=== PATIENT | female | born 1950 | race Caucasian/White ===

== ENCOUNTER → 2016-11-11 | Outpatient (CLI) | payer OTHER, MEDICARE ==
[~2016-11-11] MED LIST: ATOR10TA82 PO; CALCTAB5 PO; CHOL100010 PO; CLON1TAB3 PO; MULT-506 PO
--- NOTE | 2016-11-11 15:36 | DIAGNOSTIC IMAGING REPORT ---
ADDENDUM At the request of the referring physician, comparison is again made with the prior study of 05/11/2016. All micronodularity previously described including the lingula, right lower lobe, and to lesser extent scattered throughout lung bases are stable. All are unchanged in terms of size configuration and/or appearance. There are no new or interval findings. Electronically signed by: Ralph Bazzi M.D. 11/15/2016 10:01 AM Dictated Date/Time: 11/15/2016 10:00 AM ORIGINAL REPORT CHEST CT WITHOUT CONTRAST CT DOSE: 302.88 mGy.cm HISTORY: Dyspnea R05 Cough in 6 [id number] TECHNIQUE: Multiaxial CT images of the chest were performed without contrast. COMPARISON: None. FINDINGS: Lungs are considered generally clear. There are 2 sub-3 mm nodular densities in the right lower lobe. A dominant nodule is not appreciated. There is minimal scattered interstitial prominence medial aspect right lower lobe as well as superior segment right lower lobe. A well-defined focal infiltrate, however is not identified. There is no significant mediastinal or hilar adenopathy. Limited evaluation the upper abdomen is unremarkable. IMPRESSION: 1. Minimal low suspicion nodularity right base. 2. Lungs otherwise remarkable for minimal scattered interstitial change. 3. Study is otherwise negative. Electronically signed by: Ralph Bazzi M.D. 11/11/2016 3:34 PM Dictated Date/Time: 11/11/2016 3:29 PM
== END | disposition home or self-care (01) ==
LOC: C.CTS 14:39
PROVIDERS: ATTEND Internal Medicine Pulmonary Disease
DX: R05 Cough (principal)

== ENCOUNTER → 2017-02-10 | Outpatient (CLI) | payer OTHER, MEDICARE ==
[~2017-02-10] MED LIST changes: -ATOR10TA82 PO; +ATOR10TA88 PO
== END | disposition home or self-care (01) ==
LOC: C.PAPS 16:15
PROVIDERS: ATTEND Obstetrics & Gynecology
DX: Z01.419 Encounter for gynecological examination (general) (routine) without abnormal findings (principal)

== ENCOUNTER → 2017-05-24 | Outpatient (CLI) | payer OTHER, MEDICARE ==
[~2017-05-24] MED LIST changes: +ATOR10TA82 PO; -ATOR10TA88 PO
--- NOTE | 2017-05-24 14:49 | DIAGNOSTIC IMAGING REPORT ---
(CHEST) THORAX WITHOUT CLINICAL HISTORY: 67 years-old Female presenting with R91.8 Multiple lung nodules on CTto be done in 6 [id number]. TECHNIQUE: Multidetector CT imaging of the chest was performed without the use of intravenous contrast. IV contrast: None. A dose lowering technique was used consistent with the principles of ALARA (as low as reasonably achievable). COMPARISON: 11/11/2016. CT DOSE (mGy.cm): The estimated cumulative dose is 298.65 mGycm. 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 On soft tissue windows, normal thyroid and thoracic inlet. No axillary, supraclavicular, or mediastinal lymphadenopathy. Evaluation of the siomara limited without intravenous contrast. Normal aorta. Minimal aortic valve calcification. Normal heart size. No pericardial or pleural effusion. Fat-containing left Bochdalek hernia. On lung windows, punctate nodules in the right lower and left upper lobes stable from prior (series 4 images 46, 162, and 170). Solid 5 mm peripheral nodule in the lingula also stable from prior (series 4 image 163). No new pulmonary nodule. Airways patent. On bone windows, normal osseous structures. IMPRESSION: 1. Stable multiple pulmonary nodules, the largest measuring 5 mm. No new nodule. Follow-up per Emily Society 2017 recommendations below. Please refer to below summary of Fleischner Society 2017 recommendations for follow-up of incidental CT nodules (H Kecia et al. Guidelines for management of incidental pulmonary nodules detected on CT images: From the Fleischner Society 2017. Radiology 2017; 284: 228-243.) SOLID NODULES Single nodule; size < 6 mm * Low risk patients: No routine follow-up * High risk patients: Optional CT at 12 months Single nodule; size 6-8 mm * Low risk patients: CT at 6-12 months, then consider CT at 18-24 months * High risk patients: CT at 6-12 months, then at 18-24 months Single nodule; size > 8 mm * Either low or high risk patients: Considered CT at 3 months, PET/CT, or tissue sampling Multiple nodules; size < 6 mm * Low risk patients: No routine follow up * High risk patients: Optional CT at 12 months Multiple nodules; size 6-8 mm * Low risk patients: CT at 3-6 months, then consider CT at 18-24 months * High risk patients: CT at 3-6 months, then at 18-24 months Multiple nodules; size > 8 mm * Low risk patients: CT at 3-6 months, then consider at 18-24 months * High risk patients: CT at 3-6 months, then at 18-24 months Note: These guidelines apply to incidental nodules. These guidelines do not apply to patients younger than 35 years, immunocompromised patients, or patients with cancer. * Low risk patients: Minimal or absent history of smoking and/or other known risk factors * High risk patients: History of smoking, exposure to other carcinogens, emphysema, fibrosis, upper lobe location, family history of lung cancer, etc. * If a nodule up to 8 mm is partly solid or is ground glass, further follow-up is required after 24 months to exclude possible slow growing adenocarcinoma. SUBSOLID NODULES Single ground-glass nodule * Nodule size < 6 mm: No routine follow-up * Nodule size > or = 6 mm: CT at 6-12 months to confirm persistence, then CT every 2 years until 5 years Single part-solid nodule * Nodule size < 6 mm: No routine follow-up * Nodules size > or = 6 mm: CT at 3-6 months to confirm persistence. If unchanged and solid component remains < 6 mm, annual CT should be performed for 5 years Multiple nodules * Nodule size < 6 mm: CT at 3-6 months. If stable, consider CT at 2 and 4 years. * Nodules size > or = 6 mm: CT at 3-6 months. Subsequent management based on the most suspicious nodule(s) Electronically signed by: Luca Lyman M.D. 05/24/2017 2:48 PM Dictated Date/Time: 05/24/2017 2:38 PM
== END | disposition home or self-care (01) ==
LOC: C.CTS 14:17
PROVIDERS: ATTEND Internal Medicine Pulmonary Disease
DX: R91.8 Other nonspecific abnormal finding of lung field (principal)

== ENCOUNTER 2023-10-20 15:23 | Inpatient (IN) ==
--- NOTE | 2023-10-20 16:29 | XRay Report ---
XR KUB/Abdomen 1 view CLINICAL HISTORY: constipation TECHNIQUE: 1 view of the abdomen was obtained. Comparison: None available at the time of this dictation. FINDINGS: Lung bases are unremarkable. Posterior lumbar fixation hardware is seen. The bowel gas pattern is non obstructive. A moderate amount of stool is noted within the large bowel. IMPRESSION: Moderate stool burden without evidence of fecal impaction. ACT 112: Negative or not required by law. Electronically signed by: Gustavo Noguera M.D. 10/20/2023 4:27 PM
[2023-10-20] MEDS: SENNA 8.6 MG TAB PO SCH (17:17)
[2023-10-20 17:18] LABS: Basophils # (auto) 0.02 K/uL (0.00-0.20); Basophils % (auto) 0.2 %; Eosinophils # (auto) 0.04 K/uL (0.00-0.50); Eosinophils % (auto) 0.3 %; Hemoglobin 12.5 g/dl (12.0-16.0); Immature Granulocytes # (auto) 0.05 K/uL (0.01-0.20); Immature Granulocytes % (auto) 0.4 %; Lymphocytes # (auto) 0.78 K/uL (1.20-3.40); Lymphocytes % (auto) 6.1 %; Mean Corpuscular Hemoglobin 29.8 pg (25.0-34.0); Mean Corpuscular Hgb Conc 33.8 g/dL (32.0-36.0); Mean Corpuscular Volume 88.1 fL (80.0-100.0); Mean Platelet Volume 10.5 fL (9.4-12.4); Monocytes # (auto) 1.22 K/uL (0.11-0.59); Monocytes % (auto) 9.5 %; Neutrophils # (auto) 10.67 K/uL (1.40-6.50); Neutrophils % (auto) 83.5 %; Platelet Count 210 K/uL (130-400); RDW Standard Deviation 42.2 fL (36.4-46.3); White Blood Count 12.78 K/ul (4.8-10.8)
--- NOTE | 2023-10-20 17:20 | Emergency Department Note ---
Impression & Plan Acute constipation, Hypoxia ED Provider Note HISTORY OF PRESENT ILLNESS: Patient is a 73-year-old female presenting with rectal pain. Patient reports she had hemorrhoid surgery 4 days ago. Reports she has not had a bowel movement or any passing of flatus in the last 4 days. Reports she has significant pressure in her rectum and some lower abdominal pain. Reports she has been taking Metamucil, MiraLAX, prune juice and milk of magnesia with no output from her rectum. Reports "I feel something there but it would not come out." She also reports she tried an enema this morning with no output. She denies any nausea or vomiting. Reports feeling very weak and tired and fatigued. Patient reports she has been taking percocet, but only started taking them yesterday for her pain. ROS: as above PHYSICAL EXAM: Constitutional: Patient appears in no acute distress. HENT: Head: Normocephalic and atraumatic. Eyes: EOMI, PERRL Mouth/Throat: Mucous membranes moist. Neck: Trachea midline. Neck supple. Cardiovascular: RRR, No murmurs, rubs or gallops. Intact distal pulses. Pulmonary/Chest: No respiratory distress. Breath sounds clear and equal bilaterally. No wheezes or rales. Abdominal: Abdomen soft, no tenderness, rebound or guarding. Musculoskeletal: No edema, tenderness or deformity noted. Skin: Warm and dry. No rash, erythema, pallor or cyanosis Psychiatric: Appropriate mood and affect for situation. Neurological: Alert and keenly responsive. CN II-XII grossly intact, moving all extremities equally and fully. MDM: - Vitals signs showed hypotension - History obtained via patient. History as above. - Chronic conditions affecting care: none - Differential diagnoses include, but are not limited to: small bowel obstruction; fecal impaction; dehydration; constipation - Order placed for continuous cardiac monitoring. At this time, monitor showed rate of 85 bpm with normal sinus rhythm, per my interpretation. - External medical records reviewed. - Laboratory workup interpreted by myself showed elevated WBC (12.78) with left shift; hyponatremia (Na 132); normal lactate; normal lipase - CT abdomen/pelvis wo contrast showed large stool burden but no obvious bowel obstruction. Noted to have wall thickening in the rectum which could be postsurgical per radiology. - Patient was given mag citrate in ER, but started to vomit. Given 4 mg IV zofran - Discussed case with patient's surgeon, Dr. Greenwood, who recommended good bowel regimen and pain management. - Initially patient was agreeable to going home with a new bowel regimen. However, on repeat evaluation her saturations were in the mid 80s on room air. She was placed on 2 L nasal cannula. - Discussion was had with case advocate about patient's case and need for admission - Hospitalist consulted for admission - Patient admitted to [facility] service for further evaluation and management. ASSESSMENT AND PLAN: Diagnosis: Acute constipation; hypoxia Plan: Admit Past Med/Surg History Medical History Weight disorder Surgical History (Updated 10/03/19 @ 09:52 by JUSTINE Spaulding) History of tooth extraction History of tonsillectomy History of hand surgery History of section History of back surgery Social History Smoking Status: Former smoker Cigarettes Per Day: 30; Hx Alcohol Use: No Hx Substance Use: No Preferred Language: Turkish marital status: current occupational status: retired Feels Safe at Home: Yes Sunscreen Use: No Allergies Allergies Allergy/AdvReac Type Severity Reaction Status Date / Time Shellfish-derived Products AdvReac Unknown Uncoded 10/12/22 13:35 Home Meds Home Medications Medication Instructions Recorded Confirmed cholecalciferol (vitamin D3) 50 2,000 units PO BID 02/14/19 10/12/22 mcg (2,000 unit) capsule levothyroxine 25 mcg tablet 25 mcg PO DAILY #30 tabs 02/14/19 10/12/22 clonazepam 1 mg tablet 1 mg PO DAILY 07/01/19 10/12/22 gabapentin 100 mg capsule 100 mg PO DAILY 07/01/19 10/12/22 metformin See Rx Instructions PO BID 07/01/19 10/12/22 atorvastatin 10 mg tablet 20 mg PO HS 09/21/21 10/12/22 difluprednate 0.05 % eye drops 1 drp ophthalmic (eye) QID 09/21/21 10/12/22 (Durezol) duloxetine 30 mg capsule,delayed 60 mg PO DAILY 03/15/22 04/05/23 release ergocalciferol (vitamin D2) 50 mcg 50 mcg PO .COMPLEX 09/21/21 10/12/22 (2,000 unit) capsule hydrocortisone 1 % topical cream 1 applic topical DAILY PRN 09/21/21 10/12/22 (Anti-Itch (hydrocortisone)) prednisone 10 mg tablet 10 mg PO DAILY 09/21/21 10/12/22 semaglutide [Ozempic] subcut .WEEKLY 10/12/22 10/12/22 Previous Rx's Medication Instructions Recorded mupirocin 2 % topical ointment 1 applic topical QID #15 grams 04/24/23 Results & Data (ED) Vital Signs Vital Signs - 24 hr 10/20/23 15:28 10/20/23 16:09 10/20/23 21:12 Temperature 36.4 C L Temperature Source Temporal Artery Scan Pulse Rate 86 Pulse Rate [Left Finger] 84 76 Respiratory Rate 19 17 12 Respiratory Effort / Characteristics Non-Labored Non-Labored Respiratory Depth Normal Normal Respiratory Pattern Regular Blood Pressure 104/71 Blood Pressure [Left Arm] 99/59 L 99/56 L Blood Pressure Mean 82 Blood Pressure Mean [Left Arm] 72 70 Pulse Oximetry 96 93 92 Oxygen Delivery Method Room Air Room Air Room Air Sepsis Recent Fever Within 48 Hours No Sepsis New/Unexplained Change in Mental Status N/A Sepsis Action Taken by Nursing No Action Required Laboratory Data 10/20/23 16:56 10/20/23 16:56 Lab Results 10/20/23 10/20/23 Range/Units 16:46 16:56 WBC 12.78 H (4.8-10.8) K/ul RBC 4.20 (4.20-5.40) M/uL Hgb 12.5 (12.0-16.0) g/dl Hct 37.0 (37.0-47.0) % MCV 88.1 (80.0-100.0) fL MCH 29.8 (25.0-34.0) pg MCHC 33.8 (32.0-36.0) g/dL RDW Std Deviation 42.2 (36.4-46.3) fL RDW Coeff of Garrick 13.0 (11.5-14.5) % Plt Count 210 (130-400) K/uL MPV 10.5 (9.4-12.4) fL Immature Gran % (Auto) 0.4 % Neut % (Auto) 83.5 % Lymph % (Auto) 6.1 % [place] % (Auto) 9.5 % Eos % (Auto) 0.3 % Baso % (Auto) 0.2 % Neut # (Auto) 10.67 H (1.40-6.50) K/uL Lymph # (Auto) 0.78 L (1.20-3.40) K/uL [place] # (Auto) 1.22 H (0.11-0.59) K/uL Eos # (Auto) 0.04 (0.00-0.50) K/uL Baso # (Auto) 0.02 (0.00-0.20) K/uL Immature Gran # (Auto) 0.05 (0.01-0.20) K/uL PT 9.8 (9.0-12.0) Seconds INR 0.9 (0.9-1.1) Sodium 132 L (136-145) mmol/L Potassium 4.6 (3.5-5.1) mmol/L Chloride 100 (98-107) mmol/L Carbon Dioxide 29 (21-32) mmol/L Anion Gap 3 (3-11) BUN 15 (6-23) mg/dl Creatinine 0.86 (0.6-1.2) mg/dl Est Cr Clr Drug Dosing 53.4 ml/min Est GFR ( Amer) 76.6 ml/min Est GFR (Non-Af Amer) 66.1 ml/min BUN/Creatinine Ratio 17.4 (10-20) Glucose 109 H (70-99(Fasting)) mg/dl Lactate 1.6 (0.4-2.0) mmol/L Calcium 8.7 (8.6-10.3) mg/dl Total Bilirubin 0.9 (0.2-1.0) mg/dl AST 27 (13-39) U/L ALT 30 (7-52) U/L Alkaline Phosphatase 78 (34-104) U/L Total Protein 6.2 (6.0-8.3) gm/dl Albumin 3.9 (3.4-5.0) gm/dl Globulin 2.3 L (2.5-4.0) gm/dl Albumin/Globulin Ratio 1.7 (0.9-2) Lipase 31 (11-82) U/L Administered Medications Sennosides (Senna 8.6 Mg Tab) 17.2 mg PO QAM ISABEL Stop: 11/19/23 16:59 Last Admin: 10/20/23 17:17 Dose: 17.2 mg Documented By: [facility]B Discontinued Medications Sodium Chloride (Nss) 1,000 mls @ 999 mls/hr IV .Q1H1M ONE Stop: 10/20/23 18:50 Last Infusion: 10/20/23 20:10 Dose: Infused Documented By: Admin: 10/20/23 18:06 Dose: 999 mls/hr Documented By: [facility] Magnesium Citrate (Magnesium Citrate 296 Ml/Btl) 296 ml PO NOW STA Stop: 10/20/23 18:05 Last Admin: 10/20/23 18:42 Dose: 296 ml Documented By: [facility] Ondansetron HCl (Ondansetron Inj 2 Mg/Ml 2 Ml Vial) 4 mg IV NOW STA Stop: 10/20/23 19:19 Last Admin: 10/20/23 19:36 Dose: 4 mg Documented By: [facility] Imaging Data Radiologist's Impression: KUB X-Ray 10/20/23 16:12 XR KUB/Abdomen 1 view CLINICAL HISTORY: constipation TECHNIQUE: 1 view of the abdomen was obtained. Comparison: None available at the time of this dictation. FINDINGS: Lung bases are unremarkable. Posterior lumbar fixation hardware is seen. The bowel gas pattern is nonobstructive. A moderate amount of stool is noted within the large bowel. IMPRESSION: Moderate stool burden without evidence of fecal impaction. ACT 112: Negative or not required by law. Electronically signed by: Gustavo Noguera M.D. 10/20/2023 4:27 PM Abdomen/Pelvis CT 10/20/23 16:46 CT abd pelvis wo con CLINICAL HISTORY: abdominal pain s/p surgery TECHNIQUE: Helical axial images of the abdomen and pelvis were obtained. Automated dose lowering techniques and/or adjustment according to patient size were utilized for this exam. This exam was performed without intravenous contrast. CT DOSE: 970.44 mGy.cm COMPARISON: None available at the time of this dictation. FINDINGS: Lower chest: A tiny Bochdalek hernia is seen in the left. Mild emphysema is seen. Liver: Unremarkable. No focal lesions are seen. Gallbladder and biliary tree: Large gallbladder is seen. No intra- or extrahepatic biliary ductal dilation. Pancreas: Unremarkable, no focal lesions. Spleen: Unremarkable. Adrenals: Unremarkable. Kidneys and ureters: Unremarkable. Bladder: Unremarkable. Reproductive organs: Unremarkable. Bowel: A large stool burden is seen throughout the colon. Rectal stool is well formed but not inspissated, rectal stool burden is relatively low compared to the remainder of the colon. The appendix is normal. Lymph nodes Retroperitoneal: Unremarkable. Pelvic: Unremarkable. Mesenteric: Unremarkable. Peritoneum: Normal. Vessels: Atherosclerotic calcifications are seen. Abdominal wall: Unremarkable. Bones: Posterior fixation hardware spans L4-S1. IMPRESSION: A large stool burden is seen. Wall thickening is seen in the rectum which is nonspecific but may be postsurgical. Stercoral colitis is considered less likely as the rectal stool burden is not large. ACT 112: Negative or not required by law. Electronically signed by: Gustavo Noguera M.D. 10/20/2023 5:43 PM Discharge Plan Visit Data Chief Complaint: Constipation Stated Complaint: UNABLE TO HAVE A BM AFTER PROCEDURE, REF BY DOC ED Provider: Minoo Rodriguez Discharge Problem: Acute constipation, Hypoxia Patient Disposition: Home - Self-Care Discharge Instructions Krames/Other Patient Handouts: ED Constipation (Adult) Activity Restrictions/Additional Instructions: You were noted to be constipated but no evidence of a bowel obstruction today. Recommend you continue to alternate Tylenol and ibuprofen and take your oxycodone if your pain becomes significant. You should also continue to drink lots of water to stay well hydrated. Bowel regimen: - Take two 8.6 mg senna tablets daily. You can take up to 4 tablets twice daily until you have a bowel movement. - Mix 136g (8 capfuls) of Miralax in 32 ounces of Gatorade. Repeat every 2 hours as tolerated while awake throughout the remainder of the day today (likely 2-4 times total). Goal is for stool output to become completely clear, without any stool fragments or sediment. When this is achieved, the clean out will be complete. Upon completion of clean out, begin taking Miralax daily. - Take milk of magnesium tomorrow with the above regimen. Return to the ER if you are unable to have a bowel movement in the next 72 hours, if you have worsening abdominal pain, vomiting and inability to tolerate oral intake, fever, worsening abdominal pain, or any new or worsening symptoms. Forms Stand Alone Forms: My [facility], Important Visit Information Prescriptions Prescriptions: No Action levothyroxine 25 mcg tablet 25 mcg PO DAILY Qty: 30 cholecalciferol (vitamin D3) 2,000 unit capsule 2,000 units PO BID clonazepam 1 mg tablet 1 mg PO DAILY atorvastatin 10 mg tablet 20 mg PO HS duloxetine 30 mg capsule,delayed release(DR/EC) 60 mg PO DAILY semaglutide [Ozempic] subcut .WEEKLY gabapentin 100 mg capsule 100 mg PO DAILY metformin See Rx Instructions PO BID Rx Instructions: 1 tablet PO twice a day; ergocalciferol (vitamin D2) 50 mcg (2,000 unit) capsule 50 mcg PO .COMPLEX Rx Instructions: 50 mcg PO hydrocortisone [Anti-Itch (HC)] 1 % cream 1 applic topical DAILY PRN prednisone 10 mg tablet 10 mg PO DAILY difluprednate [Durezol] 0.05 % drops 1 drp ophthalmic (eye) QID Rx Instructions: start 24 hours after surgery mupirocin 2 % ointment 1 applic topical QID Qty: 15 0RF Referrals Referrals: Henry Tejada MD [Primary Care Provider] -
[2023-10-20 17:35] LABS: Albumin Globulin Ratio 1.7 (0.9-2); Albumin Level 3.9 gm/dl (3.4-5.0); BUN Creatinine Ratio 17.4 (10-20); Bilirubin,Total 0.9 mg/dl (0.2-1.0); Calcium 8.7 mg/dl (8.6-10.3); Creatinine Clr Calc Pharmacy 53.4 ml/min; Est GFR (African American) 76.6 ml/min; Est GFR (Non-African American) 66.1 ml/min; Globulin 2.3 gm/dl (2.5-4.0); Potassium 4.6 mmol/L (3.5-5.1); Total Protein 6.2 gm/dl (6.0-8.3)
[2023-10-20 17:41] LABS: INR 0.9 (0.9-1.1); Prothrombin Time 9.8 Seconds (9.0-12.0)
--- NOTE | 2023-10-20 17:46 | CT Scan Report ---
CT abd pelvis wo con CLINICAL HISTORY: abdominal pain s/p surgery TECHNIQUE: Helical axial images of the abdomen and pelvis were obtained. Automated dose lowering tech niques and/or adjustment according to patient size were utilized for this exam. This exam was perfor med without intravenous contrast. CT DOSE: 970.44 mGy.cm COMPARISON: None available at the time of this dictation. FINDINGS: Lower chest: A tiny Bochdalek hernia is seen in the left. Mild emphysema is seen. Liver: Unremarkable. No focal lesions are seen. Gallbladder and biliary tree: Large gallbladder is seen. No intra- or extrahepatic biliary ductal dil ation. Pancreas: Unremarkable, no focal lesions. Spleen: Unremarkable. Adrenals: Unremarkable. Kidneys and ureters: Unremarkable. Bladder: Unremarkable. Reproductive organs: Unremarkable. Bowel: A large stool burden is seen throughout the colon. Rectal stool is well formed but not inspiss ated, rectal stool burden is relatively low compared to the remainder of the colon. The appendix is n ormal. Lymph nodes Retroperitoneal: Unremarkable. Pelvic: Unremarkable. Mesenteric: Unremarkable. Peritoneum: Normal. Vessels: Atherosclerotic calcifications are seen. Abdominal wall: Unremarkable. Bones: Posterior fixation hardware spans L4-S1. IMPRESSION: A large stool burden is seen. Wall thickening is seen in the rectum which is nonspecific but may be postsurgical. Stercoral colitis is considered less likely as the rectal stool burden is not large. ACT 112: Negative or not required by law. Electronically signed by: Gustavo Noguera M.D. 10/20/2023 5:43 PM
[2023-10-20] MEDS: SODIUM CHLORIDE 0.9% 1,000 ML IV ONE (18:06)
[2023-10-20] MEDS: MAGNESIUM CITRATE 296 ML/BTL PO STA (18:42)
[2023-10-20] MEDS: ONDANSETRON INJ 2 MG/ML 2 ML VIAL IV STA (19:36)
--- NOTE | 2023-10-20 23:44 | History & Physical Report ---
Date of Service October 20, 2023 Assessment & Plan (1) Hypoxia: Plan: 71-year-old female with past medical history significant for prediabetes, hypothyroidism, mixed hyperlipidemia, aortic valve insufficiency, GERD, vitamin D deficiency, mild fibromyalgia, myofascial pain dysfunction syndrome, osteopenia, scleritis, persistent insomnia, anxiety, positive antinuclear antibody, recently had hemorrhoid surgery and since then she is constipated. Patient states since surgery she did not moved her bowels. And having some nausea. Not able to eat much. Feeling weak and tired and exhausted. At home she had a enema without much help.In the ER stool softeners wee given but patient seems vomited. ER tried to discharge patient with bowel regimen and pain regimen but patient became hypoxic requiring oxygen. Patient states she is feeling short of breath. Denies any chest pain. Denies any headache. No fevers. No cough. Having dry mouth. Micturating okay. Somewhat wobbly while ambulating. Later patient was in the bathroom on the commode and when she was trying to get up from the commode with assistance she suddenly passed out and then again trying to sit on the commode she passed out again and the nursing staff lowered her into the floor and seems she passed out for a minute and came around. Her blood pressure was soft. After that she was alert and oriented and seemed comfortable. Denied any chest pain or shortness of breath or headache after the episode. Hypoxia Requiring oxygen Recently had surgery CTA chest okay Possible atelectasis Spirometry Will monitor Syncope Happened in the bathroom while on commode Possible vasovagal Blood pressure soft after the event IV fluids CT head is okay CTA chest unremarkable Troponin two sets ok EKG no acute findings Orthostatics Telemetry Consult cardiology Constipation Recently had hemorrhoidectomy On pain medications Will give Relistor Hold narcotic pain medications Senokot S 2 tablets nightly and MiraLAX daily Consult surgery in a.m. Hypermagnesemia mag 5.7 in am labs mild hypocalcemia ekg ok took milk of magnesia at home and had mag citrate in Er renal function ok on fluids' ordered a dose of iv Lasix consulted nephro for further recommendations Prediabetes HbA1c in a.m. On Ozempic Aortic valve insufficiency Echo in September 2023 normal EF, trace to mild aortic regurgitation Follows with cardiology History of fibromyalgia Myofascial pain dysfunction syndrome On duloxetine and gabapentin Hypothyroidism On Synthyroid Follow TSH Anxiety On clonazepam DVT prophylaxis Heparin subcu Disposition Med/telemetry Full code History of Present Illness Chief Complaint: Constipation and hypoxia Primary Care Provider: Henry Tejada MD 71-year-old female with past medical history significant for prediabetes, hypothyroidism, mixed hyperlipidemia, aortic valve insufficiency, GERD, vitamin D deficiency, mild fibromyalgia, myofascial pain dysfunction syndrome, osteopenia, scleritis, persistent insomnia, anxiety, positive antinuclear antibody, recently had hemorrhoid surgery and since then she is constipated. Patient states since surgery she did not moved her bowels. And having some nausea. Not able to eat much. Feeling weak and tired and exhausted. At home she had a enema without much help.In the ER stool softeners wee given but patient seems vomited. ER tried to discharge patient with bowel regimen and pain regimen but patient became hypoxic requiring oxygen. Patient states she is feeling short of breath. Denies any chest pain. Denies any headache. No fevers. No cough. Having dry mouth. Micturating okay. Somewhat wobbly while ambulating. Later patient was in the bathroom on the commode and when she was trying to get up from the commode with assistance she suddenly passed out and then again trying to sit on the commode she passed out again and the nursing staff lowered her into the floor and seems she passed out for a minute and came around. Her blood pressure was soft. After that she was alert and oriented and seemed comfortable. Denied any chest pain or shortness of breath or headache after the episode. Past medical history. As mentioned above Past surgical history. . Colonoscopy. Lumbar spinal fusion. Hemorrhoidectomy. Social history. Smoked 1.5 packs a day for 43 years. Quit in 2004. Alcohol social drinking. No drug use. Family history. Brother had prostate cancer. Depression. Maternal aunt had breast cancer. Allergies Allergy/AdvReac Type Severity Reaction Status Date / Time shellfish derived AdvReac Unknown Unknown Verified 10/21/23 00:21 Home Medications Medication Instructions Recorded Confirmed Type atorvastatin 20 mg tablet 20 mg PO QPM 10/20/23 10/21/23 History clonazepam 1 mg tablet 1 mg PO HS PRN Sleep 10/20/23 10/21/23 History cyanocobalamin (vitamin B-12) 1,000 mcg PO DAILY 10/20/23 10/21/23 History 1,000 mcg tablet (Vitamin B-12) duloxetine 60 mg capsule,delayed 60 mg PO DAILY 10/20/23 10/20/23 History release fluticasone propionate 50 2 spray intranasal DAILY PRN 10/20/23 10/21/23 History mcg/actuation nasal .RHINITIS spray,suspension (Flonase Allergy Relief) gabapentin 300 mg capsule 300 mg PO QAM 10/20/23 10/21/23 History gabapentin 300 mg capsule 600 mg PO QPM 10/20/23 10/21/23 History levothyroxine 25 mcg tablet 25 mcg PO QAM 10/20/23 10/21/23 History loratadine 10 mg tablet 10 mg PO QAM 10/20/23 10/21/23 History meloxicam 15 mg tablet 15 mg PO QAM 10/20/23 10/21/23 History oxycodone-acetaminophen 5 mg-325 1 tab PO Q4H PRN .SEVERE PAIN 10/20/23 10/20/23 History mg tablet (Percocet) semaglutide 2 mg/dose (8 mg/3 mL) 2 mg subcut WE 10/20/23 10/20/23 History subcutaneous pen injector (Ozempic) cholecalciferol (vitamin D3) 50 50 mcg PO DAILY 10/21/23 10/21/23 History mcg (2,000 unit) tablet (Vitamin D3) Past Med/Surg History Medical History Weight disorder Surgical History History of tooth extraction History of tonsillectomy History of hand surgery History of section History of back surgery Social History Smoking Status: Former smoker Cigarettes Per Day: 30; Second Hand Exposure: No; Do You Dip or Chew Tobacco: No; Tobacco Cessation Education Requested by Patient: No Hx Alcohol Use: Yes Alcohol type: beer Hx Substance Use: No Preferred Language: American Communication Ability: Effective Rehab Specialist Required: No Beliefs That Will Affect Care: None marital status: Current Living Situation: Spouse current occupational status: retired Other Information That Helps Us Care for You: No Feels Safe at Home: Yes Safety Concerns: Feels Safe At This Time Sunscreen Use: No Assistive Devices: None Review of Systems 2 Review of Systems: All systems reviewed & are unremarkable except as noted in HPI & below Physical Exam Physical Exam: General- Not in acute distress Head- atraumatic Eyes- PERRL. ENT- oropharynx dry Neck- supple, no JVD. Lungs- clear to auscultation no wheezing or crackles Heart- regular rate and rhythm; no murmur, no gallop Abdomen- normal bowel sounds, soft, mild diffuse discomfort, mild distension Extremities- no pretibial edema, no erythema seen Neuro- alert, oriented x 3; PERRL, EOMI; no facial palsy; no dysarthria; motor 5/5 bilaterally; no pronator drift, coordination of movements normal heel franklin test ok, sensations intact, position sense intact. Skin- warm & dry Results & Data Results & Data Vital Signs (Past 12 Hours) Vital Signs Temp Pulse Pulse Resp BP BP Pulse Ox 10/20/23 21:12 76 12 99/56 L 92 10/20/23 16:09 84 17 99/59 L 93 10/20/23 15:28 36.4 C L 86 19 104/71 96 O2 Del Method 10/20/23 21:12 Room Air 10/20/23 16:09 Room Air 10/20/23 15:28 Room Air Diagnostic Findings Laboratory Results WBC 12.78 K/ul (4.8-10.8) H 10/20/23 16:56 RBC 4.20 M/uL (4.20-5.40) 10/20/23 16:56 Hgb 12.5 g/dl (12.0-16.0) 10/20/23 16:56 Hct 37.0 % (37.0-47.0) 10/20/23 16:56 MCV 88.1 fL (80.0-100.0) 10/20/23 16:56 MCH 29.8 pg (25.0-34.0) 10/20/23 16:56 MCHC 33.8 g/dL (32.0-36.0) 10/20/23 16:56 RDW Std Deviation 42.2 fL (36.4-46.3) 10/20/23 16:56 RDW Coeff of Garrick 13.0 % (11.5-14.5) 10/20/23 16:56 Plt Count 210 K/uL (130-400) 10/20/23 16:56 MPV 10.5 fL (9.4-12.4) 10/20/23 16:56 Immature Gran % (Auto) 0.4 % 10/20/23 16:56 Neut % (Auto) 83.5 % 10/20/23 16:56 Lymph % (Auto) 6.1 % 10/20/23 16:56 [place] % (Auto) 9.5 % 10/20/23 16:56 Eos % (Auto) 0.3 % 10/20/23 16:56 Baso % (Auto) 0.2 % 10/20/23 16:56 Neut # (Auto) 10.67 K/uL (1.40-6.50) H 10/20/23 16:56 Lymph # (Auto) 0.78 K/uL (1.20-3.40) L 10/20/23 16:56 [place] # (Auto) 1.22 K/uL (0.11-0.59) H 10/20/23 16:56 Eos # (Auto) 0.04 K/uL (0.00-0.50) 10/20/23 16:56 Baso # (Auto) 0.02 K/uL (0.00-0.20) 10/20/23 16:56 Immature Gran # (Auto) 0.05 K/uL (0.01-0.20) 10/20/23 16:56 PT 9.8 Seconds (9.0-12.0) 10/20/23 16:56 INR 0.9 (0.9-1.1) 10/20/23 16:56 Sodium 132 mmol/L (136-145) L 10/20/23 16:56 Potassium 4.6 mmol/L (3.5-5.1) 10/20/23 16:56 Chloride 100 mmol/L (98-107) 10/20/23 16:56 Carbon Dioxide 29 mmol/L (21-32) 10/20/23 16:56 Anion Gap 3 (3-11) 10/20/23 16:56 BUN 15 mg/dl (6-23) 10/20/23 16:56 Creatinine 0.86 mg/dl (0.6-1.2) 10/20/23 16:56 Est Cr Clr Drug Dosing 53.4 ml/min 10/20/23 16:56 Est GFR ( Amer) 76.6 ml/min 10/20/23 16:56 Est GFR (Non-Af Amer) 66.1 ml/min 10/20/23 16:56 BUN/Creatinine Ratio 17.4 (10-20) 10/20/23 16:56 Glucose 109 mg/dl (70-99(Fasting)) H 10/20/23 16:56 Lactate 1.6 mmol/L (0.4-2.0) 10/20/23 16:46 Calcium 8.7 mg/dl (8.6-10.3) 10/20/23 16:56 Total Bilirubin 0.9 mg/dl (0.2-1.0) 10/20/23 16:56 AST 27 U/L (13-39) 10/20/23 16:56 ALT 30 U/L (7-52) 10/20/23 16:56 Alkaline Phosphatase 78 U/L (34-104) 10/20/23 16:56 Total Protein 6.2 gm/dl (6.0-8.3) 10/20/23 16:56 Albumin 3.9 gm/dl (3.4-5.0) 10/20/23 16:56 Globulin 2.3 gm/dl (2.5-4.0) L 10/20/23 16:56 Albumin/Globulin Ratio 1.7 (0.9-2) 10/20/23 16:56 Lipase 31 U/L (11-82) 10/20/23 16:56 Impressions KUB X-Ray 10/20/23 16:12 XR KUB/Abdomen 1 view CLINICAL HISTORY: constipation TECHNIQUE: 1 view of the abdomen was obtained. Comparison: None available at the time of this dictation. FINDINGS: Lung bases are unremarkable. Posterior lumbar fixation hardware is seen. The bowel gas pattern is nonobstructive. A moderate amount of stool is noted within the large bowel. IMPRESSION: Moderate stool burden without evidence of fecal impaction. ACT 112: Negative or not required by law. Electronically signed by: Gustavo Noguera M.D. 10/20/2023 4:27 PM Abdomen/Pelvis CT 10/20/23 16:46 CT abd pelvis wo con CLINICAL HISTORY: abdominal pain s/p surgery TECHNIQUE: Helical axial images of the abdomen and pelvis were obtained. Automated dose lowering techniques and/or adjustment according to patient size were utilized for this exam. This exam was performed without intravenous contrast. CT DOSE: 970.44 mGy.cm COMPARISON: None available at the time of this dictation. FINDINGS: Lower chest: A tiny Bochdalek hernia is seen in the left. Mild emphysema is seen. Liver: Unremarkable. No focal lesions are seen. Gallbladder and biliary tree: Large gallbladder is seen. No intra- or extrahepatic biliary ductal dilation. Pancreas: Unremarkable, no focal lesions. Spleen: Unremarkable. Adrenals: Unremarkable. Kidneys and ureters: Unremarkable. Bladder: Unremarkable. Reproductive organs: Unremarkable. Bowel: A large stool burden is seen throughout the colon. Rectal stool is well formed but not inspissated, rectal stool burden is relatively low compared to the remainder of the colon. The appendix is normal. Lymph nodes Retroperitoneal: Unremarkable. Pelvic: Unremarkable. Mesenteric: Unremarkable. Peritoneum: Normal. Vessels: Atherosclerotic calcifications are seen. Abdominal wall: Unremarkable. Bones: Posterior fixation hardware spans L4-S1. IMPRESSION: A large stool burden is seen. Wall thickening is seen in the rectum which is nonspecific but may be postsurgical. Stercoral colitis is considered less likely as the rectal stool burden is not large. ACT 112: Negative or not required by law. Electronically signed by: Gustavo Noguera M.D. 10/20/2023 5:43 PM Chest CTA 10/20/23 23:24 Exam(s): CTA CHEST EXAM: CT Angiography Chest With Intravenous Contrast CLINICAL HISTORY: Reason for exam: PE. TECHNIQUE: Axial computed tomographic angiography images of the chest with intravenous contrast. CTDI is 24.95 mGy and DLP is 699.7 mGy-cm. Automated exposure control was utilized for the study. A dose lowering technique was utilized adhering to the principles of ALARA. MIP reconstructed images were created and reviewed. COMPARISON: No relevant prior studies available. FINDINGS: Pulmonary arteries: Unremarkable. No CT evidence of pulmonary embolism. Aorta: No acute findings. No thoracic aortic aneurysm. Lungs: Lungs demonstrate bilateral dependent atelectasis. No mass. Pleural space: Unremarkable. No significant effusion. No pneumothorax. Heart: Unremarkable. No cardiomegaly. No significant pericardial effusion. No evidence of RV dysfunction. Bones/joints: No acute fracture. No dislocation. Soft tissues: Unremarkable. Lymph nodes: Unremarkable. No enlarged lymph nodes. Stomach and bowel: Moderate distention of the visualized colon. IMPRESSION: 1. No CT evidence of pulmonary embolism. 2. Moderate distention of the visualized colon. Electronically signed by: Doron Potter M.D. 10/21/23 00:[address] 10/20/23 23:52 Exam(s): CT HEAD Without Contrast EXAM: CT Head Without Intravenous Contrast CLINICAL HISTORY: Reason for exam: unresponsive episode. TECHNIQUE: Axial computed tomography images of the head/brain without intravenous contrast. CTDI is 38.49 mGy and DLP is 546.36 mGy-cm. Automated exposure control was utilized for the study. A dose lowering technique was utilized adhering to the principles of ALARA. COMPARISON: No relevant prior studies available. FINDINGS: Brain: Dural calcifications in the left frontal lobe. No hemorrhage. No significant white matter disease. Ventricles: Unremarkable. No ventriculomegaly. Bones/joints: Unremarkable. No acute fracture. Soft tissues: Unremarkable. Sinuses: Unremarkable as visualized. No acute sinusitis. Mastoid air cells: Unremarkable as visualized. No mastoid effusion. IMPRESSION: No acute findings in the head/brain. Electronically signed by: Doron Potter M.D. 10/21/23 00:41 AM Code Status & VTE Plan VTE Prophylaxis Plan VTE Prophylaxis will be ordered: Yes
[2023-10-20] MEDS: SODIUM CHLORIDE 0.9% 500 ML IV SCH (23:45)
[2023-10-21] MEDS: OPTIRAY 320 125ml IV ONE (00:19)
--- NOTE | 2023-10-21 00:42 | CT Scan Report ---
Exam(s): CT HEAD Without Contrast EXAM: CT Head Without Intravenous Contrast CLINICAL HISTORY: Reason for exam: unresponsive episode. TECHNIQUE: Axial computed tomography images of the head/brain without intravenous contrast. CTDI is 38.49 mGy and DLP is 546.36 mGy-cm. Automated exposure control was utilized for the study. A dose lowering technique was utilized adhering to the principles of ALARA. COMPARISON: No relevant prior studies available. FINDINGS: Brain: Dural calcifications in the left frontal lobe. No hemorrhage. No significant white matter disease. Ventricles: Unremarkable. No ventriculomegaly. Bones/joints: Unremarkable. No acute fracture. Soft tissues: Unremarkable. Sinuses: Unremarkable as visualized. No acute sinusitis. Mastoid air cells: Unremarkable as visualized. No mastoid effusion. IMPRESSION: No acute findings in the head/brain. Electronically signed by: Doron Potter M.D. 10/21/23 00:41 AM
--- NOTE | 2023-10-21 00:50 | CT Scan Report ---
Exam(s): CTA CHEST EXAM: CT Angiography Chest With Intravenous Contrast CLINICAL HISTORY: Reason for exam: PE. TECHNIQUE: Axial computed tomographic angiography images of the chest with intravenous contrast. CTDI is 24.95 mGy and DLP is 699.7 mGy-cm. Automated exposure control was utilized for the study. A dose lowering technique was utilized adhering to the principles of ALARA. MIP reconstructed images were created and reviewed. COMPARISON: No relevant prior studies available. FINDINGS: Pulmonary arteries: Unremarkable. No CT evidence of pulmonary embolism. Aorta: No acute findings. No thoracic aortic aneurysm. Lungs: Lungs demonstrate bilateral dependent atelectasis. No mass. Pleural space: Unremarkable. No significant effusion. No pneumothorax. Heart: Unremarkable. No cardiomegaly. No significant pericardial effusion. No evidence of RV dysfunction. Bones/joints: No acute fracture. No dislocation. Soft tissues: Unremarkable. Lymph nodes: Unremarkable. No enlarged lymph nodes. Stomach and bowel: Moderate distention of the visualized colon. IMPRESSION: 1. No CT evidence of pulmonary embolism. 2. Moderate distention of the visualized colon. Electronically signed by: Doron Potter M.D. 10/21/23 00:49 AM
[2023-10-21] MEDS ORDERED: GLUCOSE 40% GEL 15 GM TUBE PO PRN (01:15)
[2023-10-21] MEDS ORDERED: GLUCOSE 10 TAB/TUBE PO PRN (01:15)
[2023-10-21] MEDS ORDERED: DEXTROSE 50% 50 ML SYRINGE IV PRN (01:15)
[2023-10-21] MEDS ORDERED: NITROGLYCERIN SL 0.4 MG/TAB TAB SL PRN (01:15)
[2023-10-21] MEDS ORDERED: GLUCAGON FOR INJ 1 MG VIAL SQ PRN (01:15)
[2023-10-21] MEDS ORDERED: CARBOHYDRATES FOR HYPOGLYCEMIA PO PRN (01:15)
[2023-10-21] MEDS ORDERED: POLYETHYLENE (MIRALAX) 17 GM PACK PO PRN (01:15)
--- NOTE | 2023-10-21 01:32 | Surgery Consultation ---
Date of Consultation October 21, 2023 Assessment & Plan (1) Acute constipation: The patient is being admitted on the hospital service. From a surgical perspective we recommend the following: The patient has been placed on a bowel regimen including Senokot and MiraLAX. Would recommend continuing these medications It may be beneficial to attempt utilizing an enema while she is hospitalized As noted, the patient did receive a dose of Relistor The patient did experience an episode of nausea and vomiting, however this may have been due to the magnesium citrate that she received. Due to her nausea and vomiting we will back her diet down to clear liquids until she has improvement of her abdominal exam Attempt to limit use of narcotic pain medication as this will contribute to her constipation Provide IV fluid for hydration Provide antiemetics Additional recommendations be forthcoming based on her clinical course as unfolds. Hopefully the bowel regimen that she is already received will help stimulate having a bowel movement which will alleviate some of her abdominal discomfort Addendum (6:00 AM) Patient revisited at bedside. She has remained hemodynamically stable since my last visit with the patient. I did discuss with nursing staff and patient has not had bowel movement since a dmission. At the time of my most recent evaluation with the patient she does report some cramp-like abdominal pain and feels as though she has to have a bowel movement. The patient's abdominal exam has remained unchanged since my most recent visit. Her abdomen is noted to be distended but is not firm or rigid and does not have any signs of peritonitis. Will continue with plan above including patient's bowel regimen. Supervising Physician Co-Signing Physician Notes agree w/ above, see progress note for further details. History of Present Illness Reason for Consultation: Constipation in the setting of recent hemorrhoid surgery Attending Physician: Snehal Dawn MD History of Present Illness This is a 73-year-old female who underwent hemorrhoid surgery by Dr. Cruz Greenwood of [facility] general surgery on 10/17/2023. Patient notes that there were no readily apparent or noticeable complications from her surgery and she was initially doing well but has been unable to have a bowel movement since her surgery. The patient notes that since she has been at home she has been trying modalities such as milk of magnesia, MiraLAX, as well as a stool softener. Despite these modalities she has been unable to have a bowel movement and notes that she has had worsening abdominal distention. She denies any fevers, shakes, or chills. She notes with her current presentation she is having some increasing discomfort. Since her surgery as noted she has not had a bowel movement but does note some smears of stool on her undergarments with a small amount of blood. She also notes that she is not passing much in the way of flatus. In the emergency department the patient did receive various medications to incite a bowel movement including Senokot, magnesium citrate, and has received a dose of Relistor. The patient does note that after receiving the magnesium citrate she did have an episode of nausea and vomiting. While in the emergency department the patient was noted to have some decreased oxygen saturations in the 80s on room air. While the patient was sitting on bedside commode there is also concern that patient may have had a near syncopal episode. There were no reported falls or injuries at this time. Since arrival to the emergency department the patient has had labs and imaging which independent reviewed. The patient underwent a KUB that showed a moderate stool burden without evidence of fecal impaction. CT scan of the head was performed that showed no acute intracranial findings. CT scan of the chest was performed that showed no evidence of pulmonary emboli. A CT scan of the abdomen pelvis was performed. This showed a large stool burden seen throughout the entire colon. There is also rectal stool noted and this appeared well-formed without evidence of impaction. Labs include a CBC her white blood cell count was elevated at 12.7. Hemoglobin and hematocrit along with the platelet count were normal. Chemistry profile showed sodium was 132 with a normal potassium. BUN and creatinine were nonelevated and the LFTs were unremarkable for elevation as well. Lipase was not elevated. At the time of my interview the patient appeared somewhat uncomfortable but she was in no distress. Allergies Allergy/AdvReac Type Severity Reaction Status Date / Time shellfish derived AdvReac Unknown Unknown Verified 10/21/23 00:21 Home Medications Medication Instructions Recorded Confirmed Type atorvastatin 20 mg tablet 20 mg PO QPM 10/20/23 10/21/23 History clonazepam 1 mg tablet 1 mg PO HS PRN Sleep 10/20/23 10/21/23 History cyanocobalamin (vitamin B-12) 1,000 mcg PO DAILY 10/20/23 10/21/23 History 1,000 mcg tablet (Vitamin B-12) duloxetine 60 mg capsule,delayed 60 mg PO DAILY 10/20/23 10/20/23 History release fluticasone propionate 50 2 spray intranasal DAILY PRN 10/20/23 10/21/23 History mcg/actuation nasal .RHINITIS spray,suspension (Flonase Allergy Relief) gabapentin 300 mg capsule 300 mg PO QAM 10/20/23 10/21/23 History gabapentin 300 mg capsule 600 mg PO QPM 10/20/23 10/21/23 History levothyroxine 25 mcg tablet 25 mcg PO QAM 10/20/23 10/21/23 History loratadine 10 mg tablet 10 mg PO QAM 10/20/23 10/21/23 History meloxicam 15 mg tablet 15 mg PO QAM 10/20/23 10/21/23 History oxycodone-acetaminophen 5 mg-325 1 tab PO Q4H PRN .SEVERE PAIN 10/20/23 10/20/23 History mg tablet (Percocet) semaglutide 2 mg/dose (8 mg/3 mL) 2 mg subcut WE 10/20/23 10/20/23 History subcutaneous pen injector (Ozempic) cholecalciferol (vitamin D3) 50 50 mcg PO DAILY 10/21/23 10/21/23 History mcg (2,000 unit) tablet (Vitamin D3) Patient History Medical History Weight disorder Surgical History History of tooth extraction History of tonsillectomy History of hand surgery History of section History of back surgery Social History Smoking Status: Former smoker Cigarettes Per Day: 30; Second Hand Exposure: No; Do You Dip or Chew Tobacco: No; Hx Alcohol Use: Yes Alcohol type: beer Hx Substance Use: No Preferred Language: Armenian Communication Ability: Effective Behavioral Health Technician Required: No Beliefs That Will Affect Care: None marital status: Current Living Situation: Spouse current occupational status: retired Feels Safe at Home: Yes Sunscreen Use: No Assistive Devices: None Review of Systems Constitutional: no fever and no chills Eyes: + corrective lenses Ear, Nose, Mouth, Throat: no ear pain Respiratory: no cough and no dyspnea Cardiovascular: no chest pain Gastrointestinal: as per Subjective / HPI Genitourinary: no dysuria Musculoskeletal: no back pain Integumentary: no rash Neurologic: no localized weakness Physical Exam Constitutional: WD/WN, vitals as above Eyes: no conjunctival abnormality ENMT: Ears: no external ear abnormality Neck: trachea midline Respiratory: normal respiratory effort; no respiratory distress and no labored breathing Cardiovascular: Rate/Rhythm: regular rate and regular rhythm Gastrointestinal (Abdomen): Abdomen is noted to have mild to moderate distention. There is no rebound tenderness or guarding but patient did have some generalized discomfort with palpation. There are no signs of peritonitis. I did offer to perform a digital rectal exam with attempted manual disimpaction and the patient but due to her recent hemorrhoid surgery and concern that this might be quite painful she asked to hold off on this modality at this time Skin: no rashes Neurologic: moves all extremities Psychiatric: A+Ox3, euthymic affect Results & Data Vital Signs (Past 12 Hours) Vital Signs Temp Pulse Pulse Resp BP BP Pulse Ox 10/20/23 21:12 76 12 99/56 L 92 10/20/23 16:09 84 17 99/59 L 93 10/20/23 15:28 36.4 C L 86 19 104/71 96 O2 Del Method 10/20/23 21:12 Room Air 10/20/23 16:09 Room Air 10/20/23 15:28 Room Air PG Care Time/CCT Total # of Minutes Spent Total Time Spent with Patient: Total time spent is greater than 50% in coordination of care (as documented) at patient's floor/unit and/or counseling patient: Coding Level of Care Code 31889 INT INP/OBS CARE 3/75MIN Diagnoses Acute constipation K59.00
[2023-10-21] MEDS: ACETAMINOPHEN 1,000 MG/100 ML VIAL IV STA (01:39)
[2023-10-21] MEDS: METHYLNALTREXONE BROMIDE 12 MG/0.6 ML VIAL SQ STA (01:39)
[2023-10-21] MEDS: SODIUM CHLORIDE 0.9% 1,000 ML IV SCH ×2 (02:00→06:17)
[2023-10-21 03:54] LABS: Troponin I High Sensitivity 5.7 pg/ml (0-14)
[2023-10-21 06:12] LABS: Basophils # (auto) 0.01 K/uL (0.00-0.20); Basophils % (auto) 0.1 %; Eosinophils # (auto) 0.02 K/uL (0.00-0.50); Eosinophils % (auto) 0.2 %; Hematocrit (blood only) 38.1 % (37.0-47.0); Hemoglobin 12.5 g/dl (12.0-16.0); Immature Granulocytes # (auto) 0.05 K/uL (0.01-0.20); Immature Granulocytes % (auto) 0.4 %; Lymphocytes # (auto) 0.91 K/uL (1.20-3.40); Lymphocytes % (auto) 6.9 %; Mean Corpuscular Hemoglobin 29.6 pg (25.0-34.0); Mean Corpuscular Hgb Conc 32.8 g/dL (32.0-36.0); Mean Corpuscular Volume 90.1 fL (80.0-100.0); Mean Platelet Volume 10.7 fL (9.4-12.4); Monocytes # (auto) 1.48 K/uL (0.11-0.59); Monocytes % (auto) 11.3 %; Neutrophils # (auto) 10.66 K/uL (1.40-6.50); Neutrophils % (auto) 81.1 %; Platelet Count 207 K/uL (130-400); RDW Coefficient of Variation 13.2 % (11.5-14.5); Red Blood Count 4.23 M/uL (4.20-5.40); White Blood Count 13.13 K/ul (4.8-10.8)
[2023-10-21] MEDS: clonazePAM 1 MG TAB PO STA (06:16)
[2023-10-21] MEDS: GABAPENTIN 600 MG TAB PO STA (06:17)
[2023-10-21] MEDS: DOCUSATE SODIUM/SENNA 50/8.6MG TAB PO STA (06:17)
[2023-10-21 06:24] LABS: BUN Creatinine Ratio 17.9 (10-20); Calcium 7.5 mg/dl (8.6-10.3); Creatinine Clr Calc Pharmacy 58.9 ml/min; Est GFR (African American) 86.2 ml/min; Est GFR (Non-African American) 74.4 ml/min; Potassium 4.7 mmol/L (3.5-5.1)
[2023-10-21 06:28] LABS: Magnesium 5.7 mg/dl (1.7-2.4)
[2023-10-21 06:30] LABS: Troponin I High Sensitivity 3.7 pg/ml (0-14)
[2023-10-21 07:14] LABS: Estimated Average Glucose 120 mg/dl; Hemoglobin A1C 5.8 % (4.5-5.6)
[2023-10-21] MEDS: FUROSEMIDE INJ 20 MG/2 ML VIAL IV ONE (08:25)
[2023-10-21] MEDS: LEVOTHYROXINE SODIUM 25 MCG TABLET PO SCH (08:25)
[2023-10-21] MEDS: LORATADINE 10 MG TAB PO SCH (08:26)
[2023-10-21] MEDS: CHOLECALCIFEROL 25 MCG (1000 UNITS) TAB PO SCH (08:26)
[2023-10-21] MEDS: GABAPENTIN 300 MG CAP PO SCH ×2 (08:26→20:21)
[2023-10-21] MEDS: DULoxetine HCL 60 MG CAP PO SCH (08:26)
[2023-10-21] MEDS: POLYETHYLENE (MIRALAX) 17 GM PACK PO SCH ×2 (08:26→20:23)
[2023-10-21] MEDS: CYANOCOBALAMIN (B-12) 500 MCG TABLET PO SCH (08:26)
[2023-10-21] MEDS: INSULIN ASPART PER UNIT CHARGE SC SCH (08:27)
[2023-10-21] MEDS: HEPARIN SOD 5,000 UNIT/0.5 ML VIAL SQ SCH (08:27)
[2023-10-21] MEDS: ACETAMINOPHEN 1,000 MG/100 ML VIAL IV PRN (08:51)
--- NOTE | 2023-10-21 09:53 | XCELERA ---
[id number]
[2023-10-21] MEDS ORDERED: FUROSEMIDE INJ 20 MG/2 ML VIAL IV SCH (10:15)
[2023-10-21 11:36] LABS: Appearance Urine Cloudy (Clear); Bacteria Urine Automated 1+ (None Seen); Bilirubin Urine Negative (Negative); Blood Urine 3+ (Negative); Cast Urine Automated 0-2 /lpf (0-2); Color Urine Red; Glucose Urine UA Negative (Negative); Ketones Urine Negative (Negative); Leukocyte Esterase Urine 2+ (Negative); Nitrite Urine Negative (Negative); Protein Urine 1+ (Negative); RBC Urine Automated >20 /hpf (0-2); Specific Gravity Urine 1.016 (1.000-1.030); Urobilinogen Urine Negative (Negative); pH Urine 6.5 (4.5-7.5)
--- NOTE | 2023-10-21 11:51 | Cardiology Consultation ---
Date of Consultation October 21, 2023 Assessment & Plan (1) Syncope and collapse: -suspect vasovagal as she was straining on the commode. -she does have a longstanding history of vasovagal syncope. -rhythm strips were not available for review. -no further cardiac evaluation necessary. (2) Aortic valve insufficiency: -trivial aortic insufficiency on current echocardiogram. (3) Hypertension: -adequate control. (4) Hypercholesterolemia: -continue atorvastatin. History of Present Illness Attending Physician: Kyaw Hong MD History of Present Illness Mrs. Collazo is a 73-year-old female admitted yesterday after an episode of syncope. This consultation is pain to assist in her cardiac management. Of note, patient is well known to me from the outpatient setting. The patient was in her usual state of health until October 16 when she underwent surgery for her hemorrhoids. Since that time, she has been experiencing constipation, weakness, fatigue, and rectal pain. She tried an enema home without success. Therefore, she presented to the emergency room yesterday with the above complaints. She was given magnesium citrate and developed vomiting. She did demonstrate some hypoxia with saturations in the 80s. While on the commode attempting to move her bowels, the patient experience an episode of syncope. Therefore, hospitalization was recommended. The patient does carry a longstanding history of vasovagal syncope throughout her lifetime. She did have an echocardiogram performed on September 07 in preparation for our yearly office visit. This noted normal systolic function with ejection fraction of 60-65%. There is trivial to mild aortic insufficiency along with mild LVH. Compared with the study performed in October 2022, no significant change. Currently, patient is resting comfortably in bed and without complaints. Past medical and surgical history 1. Hypertension 2. Mild LVH 3. Hypercholesterolemia 4. Trivial to mild aortic insufficiency 5. Vasovagal syncope 6. Hyperglycemia 7. Hypothyroidism 8. DJD 9. Fibromyalgia syndrome 10. GERD 11. Vitamin-D deficiency 12. Benign pulmonary nodule 13. L3-4-5 fusion-2013 14. Hand surgery 15. Tonsillectomy 16. 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 At ascending thoracic aortic aneurysm repaired at age 82. Mother at 97 from a cardiomyopathy Siblings history is Review of systems A 10 point review systems undertaken and negative except described. Allergies Allergy/AdvReac Type Severity Reaction Status Date / Time shellfish derived AdvReac Unknown Unknown Verified 10/21/23 00:21 Home Medications Medication Instructions Recorded Confirmed Type atorvastatin 20 mg tablet 20 mg PO QPM 10/20/23 10/21/23 History clonazepam 1 mg tablet 1 mg PO HS PRN Sleep 10/20/23 10/21/23 History cyanocobalamin (vitamin B-12) 1,000 mcg PO DAILY 10/20/23 10/21/23 History 1,000 mcg tablet (Vitamin B-12) duloxetine 60 mg capsule,delayed 60 mg PO DAILY 10/20/23 10/20/23 History release fluticasone propionate 50 2 spray intranasal DAILY PRN 10/20/23 10/21/23 History mcg/actuation nasal .RHINITIS spray,suspension (Flonase Allergy Relief) gabapentin 300 mg capsule 300 mg PO QAM 10/20/23 10/21/23 History gabapentin 300 mg capsule 600 mg PO QPM 10/20/23 10/21/23 History levothyroxine 25 mcg tablet 25 mcg PO QAM 10/20/23 10/21/23 History loratadine 10 mg tablet 10 mg PO QAM 10/20/23 10/21/23 History meloxicam 15 mg tablet 15 mg PO QAM 10/20/23 10/21/23 History oxycodone-acetaminophen 5 mg-325 1 tab PO Q4H PRN .SEVERE PAIN 10/20/23 10/20/23 History mg tablet (Percocet) semaglutide 2 mg/dose (8 mg/3 mL) 2 mg subcut WE 10/20/23 10/20/23 History subcutaneous pen injector (Ozempic) cholecalciferol (vitamin D3) 50 50 mcg PO DAILY 10/21/23 10/21/23 History mcg (2,000 unit) tablet (Vitamin D3) Patient History Medical History Weight disorder Surgical History History of tooth extraction History of tonsillectomy History of hand surgery History of section History of back surgery Social History Smoking Status: Former smoker Cigarettes Per Day: 30; Second Hand Exposure: No; Do You Dip or Chew Tobacco: No; Hx Alcohol Use: Yes Alcohol type: beer Hx Substance Use: No Preferred Language: Andorran Communication Ability: Effective Local Government Legislator Required: No Beliefs That Will Affect Care: None marital status: Current Living Situation: Spouse current occupational status: retired Feels Safe at Home: Yes Sunscreen Use: No Assistive Devices: None Physical Exam Physical Exam: In general this is a well-developed well-nourished white female in no acute distress. HEENT exam is negative. Neck is supple with full carotid upstrokes. There are no carotid bruits. Jugular venous pressure is flat at 90. There is no thyromegaly. Cardiovascular exam reveals a regular rhythm with a normal S1 and S2. No S3, S4, or murmurs are noted. Lungs are clear without rales, rhonchi, or wheezes. Abdomen is soft and nontender without bruits. Extremities reveal intact radial artery and posterior tibial pulses bilaterally. There is no peripheral edema. Results & Data Vital Signs (Past 12 Hours) Vital Signs Temp Pulse Pulse Resp BP BP Pulse Ox 10/21/23 10:23 36.5 C 79 17 103/71 97 10/21/23 10:23 82 10/21/23 08:33 89 18 112/68 99 10/21/23 07:03 80 10/21/23 04:40 75 17 110/70 99 10/21/23 04:30 76 19 99 10/21/23 04:20 76 12 99 10/21/23 04:10 75 12 99 10/21/23 04:00 74 14 99 10/21/23 03:50 74 13 99 10/21/23 03:40 72 25 H 99 10/21/23 03:30 72 14 99 10/21/23 03:20 78 21 98 10/21/23 03:10 73 13 99 10/21/23 03:00 74 13 99 10/21/23 02:50 74 13 99 10/21/23 02:40 74 13 99 10/21/23 02:35 73 16 99 10/21/23 02:33 10/21/23 02:33 74 18 128/85 99 10/21/23 02:30 73 12 128/85 99 10/21/23 02:20 75 13 99 10/21/23 02:10 75 13 100 10/21/23 02:00 75 13 99 10/21/23 01:50 79 17 100 10/21/23 01:40 77 16 10/21/23 01:32 77 10/21/23 01:30 78 17 10/21/23 01:20 80 18 10/21/23 01:10 85 20 98 10/21/23 01:04 84 25 H 99 10/21/23 01:00 82 20 135/85 98 10/21/23 00:50 83 21 99 10/21/23 00:40 80 20 100 10/21/23 00:30 84 17 98 10/21/23 00:25 96 10/21/23 00:00 75 22 96 10/20/23 23:56 74 21 95 O2 Del Method O2 Flow Rate 10/21/23 10:23 Nasal Cannula 2 10/21/23 10:23 10/21/23 08:33 10/21/23 07:03 10/21/23 04:40 10/21/23 04:30 10/21/23 04:20 10/21/23 04:10 10/21/23 04:00 10/21/23 03:50 10/21/23 03:40 10/21/23 03:30 10/21/23 03:20 10/21/23 03:10 10/21/23 03:00 10/21/23 02:50 10/21/23 02:40 10/21/23 02:35 10/21/23 02:33 Nasal Cannula 2 10/21/23 02:33 Nasal Cannula 2 10/21/23 02:30 10/21/23 02:20 10/21/23 02:10 10/21/23 02:00 10/21/23 01:50 10/21/23 01:40 10/21/23 01:32 10/21/23 01:30 10/21/23 01:20 10/21/23 01:10 10/21/23 01:04 10/21/23 01:00 10/21/23 00:50 10/21/23 00:40 10/21/23 00:30 10/21/23 00:25 10/21/23 00:00 10/20/23 23:56 Laboratory Results CBC notes hemoglobin of 12.5, hematocrit 30.1, white count 13.1, and platelet count of [id number]. Electrolytes note a sodium of 132, potassium 4.7, chloride 101, bicarb 27, BUN 14, creatinine 0.78, and glucose of 124. High sensitivity troponin on presentation was 5.7 with a follow-up value of 3.7. Diagnostic Findings Echocardiogram notes hyperdynamic systolic function ejection fraction greater than 70%. There is trivial aortic insufficiency along with mild LVH. EKG notes normal sinus rhythm and poor R-wave progression across the anterior precordium. CT scan of the chest showed no evidence of pulmonary embolism. Head CT was ne gative. Abdominal CT is a significant stool burden. PG Care Time/CCT Total # of Minutes Spent Total Time Spent with Patient: Total time spent is greater than 50% in coordination of care (as documented) at patient's floor/unit and/or counseling patient: Coding Level of Care Code 03593 INT INP/OBS CARE 3/75MIN Diagnoses Syncope and collapse R55 Aortic valve insufficiency I35.1 Hypertension I10 Hypercholesterolemia E78.00
--- NOTE | 2023-10-21 12:08 | Nephrology Consultation ---
Date of Consultation October 21, 2023 Assessment & Plan (1) Electrolyte and fluid disorder: Patient has hypermagnesemia and mild hyponatremia. Hypermagnesemia thought to be due to recent use of milk of magnesia. I recommend using other laxatives such as MiraLAX and lactulose. She is getting IV normal saline at 125 mill per hour. The hyponatremia is likely hypovolemic. will continue to monitor sodium and magnesium (2) Acute constipation: Likely related to the recent hemorrhoid surgery. Will continue conservative management with IV fluids and laxatives. History of Present Illness Reason for Consultation: Hypermagnesemia Requesting Physician: Kyaw Hong MD Attending Physician: Kyaw Hong MD History of Present Illness This is 73-year-old female with history of hypertension, hyperlipidemia, hypothyroidism and recent hemorrhoid surgery was admitted with severe constipation. Patient had hemorrhoid surgery on 10/17/2023 and since then she has not been able to move her bowels. She has been using multiple laxatives. Of note she was using milk of magnesia without help. She now complains of abdominal discomfort. She has not been able to have a bowel movement since admission. CT abdomen showed large stool burden. Surgery on board recommending conservative management. Patient also had syncopal episode thought to be vasovagal. Admission magnesium was 5.7. She also has mild hyponatremia of 132. All other labs and imaging were reviewed. Allergies Allergy/AdvReac Type Severity Reaction Status Date / Time shellfish derived AdvReac Unknown Unknown Verified 10/21/23 00:21 Home Medications Medication Instructions Recorded Confirmed Type atorvastatin 20 mg tablet 20 mg PO QPM 10/20/23 10/21/23 History clonazepam 1 mg tablet 1 mg PO HS PRN Sleep 10/20/23 10/21/23 History cyanocobalamin (vitamin B-12) 1,000 mcg PO DAILY 10/20/23 10/21/23 History 1,000 mcg tablet (Vitamin B-12) duloxetine 60 mg capsule,delayed 60 mg PO DAILY 10/20/23 10/20/23 History release fluticasone propionate 50 2 spray intranasal DAILY PRN 10/20/23 10/21/23 History mcg/actuation nasal .RHINITIS spray,suspension (Flonase Allergy Relief) gabapentin 300 mg capsule 300 mg PO QAM 10/20/23 10/21/23 History gabapentin 300 mg capsule 600 mg PO QPM 10/20/23 10/21/23 History levothyroxine 25 mcg tablet 25 mcg PO QAM 10/20/23 10/21/23 History loratadine 10 mg tablet 10 mg PO QAM 10/20/23 10/21/23 History meloxicam 15 mg tablet 15 mg PO QAM 10/20/23 10/21/23 History oxycodone-acetaminophen 5 mg-325 1 tab PO Q4H PRN .SEVERE PAIN 10/20/23 10/20/23 History mg tablet (Percocet) semaglutide 2 mg/dose (8 mg/3 mL) 2 mg subcut WE 10/20/23 10/20/23 History subcutaneous pen injector (Ozempic) cholecalciferol (vitamin D3) 50 50 mcg PO DAILY 10/21/23 10/21/23 History mcg (2,000 unit) tablet (Vitamin D3) Patient History Medical History Weight disorder Surgical History History of tooth extraction History of tonsillectomy History of hand surgery History of section History of back surgery Social History Smoking Status: Former smoker Cigarettes Per Day: 30; Second Hand Exposure: No; Do You Dip or Chew Tobacco: No; Hx Alcohol Use: Yes Alcohol type: beer Hx Substance Use: No Preferred Language: Frisian Communication Ability: Effective Unishear Operator Required: No Beliefs That Will Affect Care: None marital status: Current Living Situation: Spouse current occupational status: retired Feels Safe at Home: Yes Sunscreen Use: No Assistive Devices: None Review of Systems 2 Review of Systems: All other systems were reviewed and negative except as noted in HPI Physical Exam 2 Physical Exam: General exam: Appears comfortable, no acute distress HEENT: Pupils are equal and reactive to light Neck: No JVD, neck is supple trachea is midline Respiratory system: Clear breath sounds bilaterally. Gastrointestinal: Abdomen is soft, non distended, non tender, bowel sounds are present CVS: Regular rate and rhythm. No murmurs, rubs or gallops Musculoskeletal: No joint or muscle tenderness Extremities: Non tender, no edema, peripheral pulses are present Neuro: Oriented, no tremors, no focal neurological deficits Skin: No rashes Results & Data Vital Signs (Past 12 Hours) Vital Signs Temp Pulse Pulse Resp BP BP Pulse Ox 10/21/23 10:23 36.5 C 79 17 103/71 97 10/21/23 10:23 82 10/21/23 08:33 89 18 112/68 99 10/21/23 07:03 80 10/21/23 04:40 75 17 110/70 99 10/21/23 04:30 76 19 99 10/21/23 04:20 76 12 99 10/21/23 04:10 75 12 99 10/21/23 04:00 74 14 99 10/21/23 03:50 74 13 99 10/21/23 03:40 72 25 H 99 10/21/23 03:30 72 14 99 10/21/23 03:20 78 21 98 10/21/23 03:10 73 13 99 10/21/23 03:00 74 13 99 10/21/23 02:50 74 13 99 10/21/23 02:40 74 13 99 10/21/23 02:35 73 16 99 10/21/23 02:33 10/21/23 02:33 74 18 128/85 99 10/21/23 02:30 73 12 128/85 99 10/21/23 02:20 75 13 99 10/21/23 02:10 75 13 100 10/21/23 02:00 75 13 99 10/21/23 01:50 79 17 100 10/21/23 01:40 77 16 10/21/23 01:32 77 10/21/23 01:30 78 17 10/21/23 01:20 80 18 10/21/23 01:10 85 20 98 10/21/23 01:04 84 25 H 99 10/21/23 01:00 82 20 135/85 98 10/21/23 00:50 83 21 99 10/21/23 00:40 80 20 100 10/21/23 00:30 84 17 98 10/21/23 00:25 96 O2 Del Method O2 Flow Rate 10/21/23 10:23 Nasal Cannula 2 10/21/23 10:23 10/21/23 08:33 10/21/23 07:03 10/21/23 04:40 10/21/23 04:30 10/21/23 04:20 10/21/23 04:10 10/21/23 04:00 10/21/23 03:50 10/21/23 03:40 10/21/23 03:30 10/21/23 03:20 10/21/23 03:10 10/21/23 03:00 10/21/23 02:50 10/21/23 02:40 10/21/23 02:35 10/21/23 02:33 Nasal Cannula 2 10/21/23 02:33 Nasal Cannula 2 10/21/23 02:30 10/21/23 02:20 10/21/23 02:10 10/21/23 02:00 10/21/23 01:50 10/21/23 01:40 10/21/23 01:32 10/21/23 01:30 10/21/23 01:20 10/21/23 01:10 10/21/23 01:04 10/21/23 01:00 10/21/23 00:50 10/21/23 00:40 10/21/23 00:30 10/21/23 00:25 Laboratory Results 10/21/23 05:40 10/20/23 10/21/23 16:56 05:40 WBC 12.78 H 13.13 H RBC 4.20 4.23 MCV 88.1 90.1 MCH 29.8 29.6 MCHC 33.8 32.8 RDW Std Deviation 42.2 43.0 RDW Coeff of Garrick 13.0 13.2 Plt Count 210 207 MPV 10.5 10.7 Albumin 3.9
--- NOTE | 2023-10-21 12:18 | Electrocardiogram Report ---
Test Reason : Blood Pressure : / mmHG Vent. Rate : 077 BPM Atrial Rate : 077 BPM P-R Int : 164 ms QRS Dur : 094 ms QT Int : 406 ms P-R-T Axes : 031 -07 027 degrees QTc Int : 459 ms Normal sinus rhythm Poor R wave progression, consider anterior AR vs. lead placement vs. LVH Abnormal ECG No previous ECGs available Confirmed by Garrett Moore ([id number]) on 10/21/2023 12:17:58 PM Referred By: Henry Tejada Confirmed By:Garrett Moore
--- NOTE | 2023-10-21 12:24 | Surgery Progress Note ---
Date of Service October 21, 2023 Assessment & Plan (1) S/P hemorrhoidectomy: Plan: s/p hemorrhoidectomy, acute constipation, likely related to aversion to pain w/ bm. No functional obstruction or stricture. aggressive bowel regiment gentle enemas prn lidocaine jelly diet as tolerated (2) Acute constipation: Admission and Anticipated Discharge Date Admission Date: October 20, 2023 Subjective s/p hemorrhoidectomy by Dr. Greenwood on Monday, admitted for constipation and weakness. No bm since surgery, seems to be avoiding due to pain. no issues overnight. Physical Exam Constitutional: WD/WN, vitals as above Gastrointestinal (Abdomen): normal bowel sounds, soft, nontender, no hepatosplenomegaly bruising and swelling from surgery, no active bleeding. TTP as expected, anus patent on GUERRERO, hard stool ball in rectal vault, sphincter intact, no obstruction. Results & Data Vital Signs (Past 12 Hours) Vital Signs Temp Pulse Pulse Resp BP BP Pulse Ox 10/21/23 12:13 10/21/23 10:23 36.5 C 79 17 103/71 97 10/21/23 10:23 82 10/21/23 08:33 89 18 112/68 99 10/21/23 07:03 80 10/21/23 04:40 75 17 110/70 99 10/21/23 04:30 76 19 99 10/21/23 04:20 76 12 99 10/21/23 04:10 75 12 99 10/21/23 04:00 74 14 99 10/21/23 03:50 74 13 99 10/21/23 03:40 72 25 H 99 10/21/23 03:30 72 14 99 10/21/23 03:20 78 21 98 10/21/23 03:10 73 13 99 10/21/23 03:00 74 13 99 10/21/23 02:50 74 13 99 10/21/23 02:40 74 13 99 10/21/23 02:35 73 16 99 10/21/23 02:33 10/21/23 02:33 74 18 128/85 99 10/21/23 02:30 73 12 128/85 99 10/21/23 02:20 75 13 99 10/21/23 02:10 75 13 100 10/21/23 02:00 75 13 99 10/21/23 01:50 79 17 100 10/21/23 01:40 77 16 10/21/23 01:32 77 10/21/23 01:30 78 17 10/21/23 01:20 80 18 10/21/23 01:10 85 20 98 10/21/23 01:04 84 25 H 99 10/21/23 01:00 82 20 135/85 98 10/21/23 00:50 83 21 99 10/21/23 00:40 80 20 100 10/21/23 00:30 84 17 98 10/21/23 00:25 96 O2 Del Method O2 Flow Rate 10/21/23 12:13 Room Air 10/21/23 10:23 Nasal Cannula 2 10/21/23 10:23 10/21/23 08:33 10/21/23 07:03 10/21/23 04:40 10/21/23 04:30 10/21/23 04:20 10/21/23 04:10 10/21/23 04:00 10/21/23 03:50 10/21/23 03:40 10/21/23 03:30 10/21/23 03:20 10/21/23 03:10 10/21/23 03:00 10/21/23 02:50 10/21/23 02:40 10/21/23 02:35 10/21/23 02:33 Nasal Cannula 2 10/21/23 02:33 Nasal Cannula 2 10/21/23 02:30 10/21/23 02:20 10/21/23 02:10 10/21/23 02:00 10/21/23 01:50 10/21/23 01:40 10/21/23 01:32 10/21/23 01:30 10/21/23 01:20 10/21/23 01:10 10/21/23 01:04 10/21/23 01:00 10/21/23 00:50 10/21/23 00:40 10/21/23 00:30 10/21/23 00:[address] personally reviewed and interpreted, + constipation, swelling at anus likely post op. T abd pelvis wo con CLINICAL HISTORY: abdominal pain s/p surgery TECHNIQUE: Helical axial images of the abdomen and pelvis were obtained. Automated dose lowering techniques and/or adjustment according to patient size were utilized for this exam. This exam was performed without intravenous contrast. CT DOSE: 970.44 mGy.cm COMPARISON: None available at the time of this dictation. FINDINGS: Lower chest: A tiny Bochdalek hernia is seen in the left. Mild emphysema is s een. Liver: Unremarkable. No focal lesions are seen. Gallbladder and biliary tree: Large gallbladder is seen. No intra- or extrahepatic biliary ductal dilation. Pancreas: Unremarkable, no focal lesions. Spleen: Unremarkable. Adrenals: Unremarkable. Kidneys and ureters: Unremarkable. Bladder: Unremarkable. Reproductive organs: Unremarkable. Bowel: A large stool burden is seen throughout the colon. Rectal stool is well formed but not inspissated, rectal stool burden is relatively low compared to the remainder of the colon. The appendix is normal. Lymph nodes Retroperitoneal: Unremarkable. Pelvic: Unremarkable. Mesenteric: Unremarkable. Peritoneum: Normal. Vessels: Atherosclerotic calcifications are seen. Abdominal wall: Unremarkable. Bones: Posterior fixation hardware spans L4-S1. IMPRESSION: A large stool burden is seen. Wall thickening is seen in the rectum which is nonspecific but may be postsurgical. Stercoral colitis is considered less likely as the rectal stool burden is not large. ACT 112: Negative or not required by law. PG Care Time/CCT Total # of Minutes Spent Total Time Spent with Patient: Total time spent is greater than 50% in coordination of care (as documented) at patient's floor/unit and/or counseling patient: Coding Level of Care Code 54624 SUB INP/OBS CARE 2/35MIN Diagnoses S/P hemorrhoidectomy Z98.890; Z87.19 Acute constipation K59.00
[2023-10-21] MEDS ORDERED: Nursing to Pharmacy Communication SCH (12:30)
[2023-10-21] MEDS: LIDOCAINE 2% JELLY 5 ML TUBE EXT SCH ×2 (12:34→13:15)
--- OUTSIDE RECORDS SUMMARY | 2023-10-21 12:42 | External Medical Summary | Summary of Care ---
Author Name Unknown Organization [facility] Address [address] [place] [address] Phone [phone] Care Team Providers Care Chemistry Manager Name Role Phone Henry Tejada MD Primary Care Provider + Reason for Visit * Reason Onset Date Comments Advice 10/19/2023 Pain/bowel movem ent Encounter Details Date Type Department Care Team (Late st Contact Info) Description 10/19/2023 Telephone General Surgery, [facility] [address] [place] [address] Services, Scheduling [address] [place] [address] Advice (Pain/bowel movement ) Allergies Active Allergy Reactions Criticality Noted Date Comments Shellfish Allergy 01/08/2020 ONLY CLAMS documented as of this encounter (statuses as of 10/19/2023) Medications Medication Sig Dispensed Refills Start Date End Date Status Vitamin D3 50 MCG (1999) Oral Tablet Take 1 Tablet by mouth in the morning. 0 Active Loratadine 10 MG Oral Tablet (Claritin)Indicatio ns:Cough,Post-nasal drip,Bilateral chronic serous otitis media Take by mouth 1 Tablet in the morning. 30 Tablet 5 10/18/2021 Active Fluticasone Propionate 50 MCG/ACT Nasal Suspension (Flonase)Indication s:Dysfunction of right eustachian tube,History of serous otitis media Administer 2 Sprays into each nostril in the morning. St 09/19/2022. 1 mL 0 09/19/2022 Active Additional Information Patient taking differently:2 [place] Each NostrilPRN, Rhinitis, St 09/19/2022, Reported on 04/28/2023 B-12 1000 MCG Oral Capsule Take 1 Capsule by mouth in the morning. 0 Active Levothyroxine Sodium 25 MCG Oral Tablet (Levoxyl)Indication s:Acquired hypothyroidism TAKE 1 TABLET BY MOUTH ONCE DAILY IN THE MORNING (AT LEAST 30 MINUTES PRIOR TO BREAKFAST OR OTHER MEDICATIONS) 90 Tablet 3 03/22/2023 Active Atorvastatin Calcium 20 MG Oral Tablet (Lipitor)Indication s:Nonrheumatic aortic valve insufficiency,Dysli pidemia, goal LDL below 100 Take 1 tablet by mouth in the evening 90 Tablet 3 04/26/2023 Active Mupirocin Calcium 2 % External Cream Apply topically to affected area 4 times a day. 0 04/24/2023 Active Meloxicam 15 MG Oral TabletIndications:A cute right-sided low back pain without sciatica TAKE 1 TABLET BY MOUTH IN THE MORNING FOR PAIN 30 Tablet 1 05/30/2023 Active Hydrocortisone 1 % External Ointment Apply topically to affected area 2 times a day. Apply to rectal area twice daily as needed for hemorrhoids 30 g 1 06/07/2023 Active Additional Information Patient not taking.Reported on 10/17/2023 Gabapentin 300 MG Oral Capsule (Neurontin)Indicati ons:Fibromyalgia One capsule in the morning. Two capsules in the evening. 270 Capsule 1 06/29/2023 Active DULoxetine HCl 60 MG Oral Capsule Delayed Release Particles (Cymbalta) Take 1 capsule by mouth once daily 90 Capsule 1 08/21/2023 Active Ozempic (2 MG/DOSE) 8 MG/3ML Subcutaneous Solution Pen-injector (Semaglutide (2 MG/DOSE))Indication s:Prediabetes,Class 1 obesity INJECT 2MG SUBCUTANEOUSLY ONCE A WEEK 3 mL 3 09/01/2023 Active clonazePAM 1 MG Oral Tablet (KlonoPIN)Indicatio ns:Anxiety TAKE 1 TABLET BY MOUTH ONCE DAILY AT BEDTIME NEEDED FOR SLEEP 30 Tablet 0 10/17/2023 Active oxyCODONE-Acetamino phen 5-325 MG Oral Tablet (Percocet) Take 1 Tablet by mouth every 4 hours as needed for Severe Pain for up to 15 doses. 10 Tablet 0 10/17/2023 Active documented as of this encounter (statuses as of 10/19/2023) Active Problems Problem Noted Date Diagnosed Date Hemorrhoids 10/17/2023 Mixed hyperlipidemia 01/13/2022 Anxiety 09/01/2021 Positive antinuclear antibody 09/01/2021 Scleritis 08/31/2021 Gastroesophageal reflux disease without esophagi tis 01/12/2021 Class 1 obesity 12/11/2020 Hx of colonic polyp 12/11/2020 Acquired hypothyroidism 09/05/2019 Prediabetes 07/22/2019 Overview: Per Prediabetes protocol Myofascial pain dysfunction syndrome 03/28/2019 Controlled substance agreement signed 03/28/2018 Persistent insomnia 06/22/2017 Vitamin D deficiency 06/22/2017 Fibromyalgia 12/01/2016 Aortic valve insufficiency 12/01/2016 Osteopenia 01/07/2015 documented as of this encounter (statuses as of 10/19/2023) Resolved Problems Problem Noted Date Diagnosed Date Resolved Date Cyst of right kidney 10/08/2021 023 Preseptal cellulitis of left eye 08/31/2021 01/13/2022 PMR (polymyalgia rheumatica) 01/08/2020 07/12/2021 Fatigue 03/20/2019 01/13/2022 Malaise and fatigue 10/29/2018 07/08/20 19 Multiple pulmonary nodules 06/22/2017 0 01/28/2019 Overview: Seen by pulmonology; no need for further follow up Dyslipidemia, goal LDL below 130 12/01/2016 01/13/2022 Hypothyroid 07/08/2019 DDD (degenerative disc disease), lumbar 06/22/2017 documented as of this encounter (statuses as of 10/19/2023) Immunizations Name Administration Dates Next Due COVID-19 mRNA, LNP-s, No Pre serve, 2-Dose Series (Moderna) 08/11/2020,07/11/2020 COVID-19, mRNA, LNP-s, PF, B ooster, 100mcg/0.5mg (Moderna) 02/22/2021 Hepatitis B, 20+ yrs 01/28/2019,08/27/2018,07/18 Pneumococcal Conjugate Vacc, 13 Valent (Prevnar) 02/17/2016 Pneumococcal Polysaccharide PPV23 (Pneumovax) 06/22/2017 Season Influenza, Quad, PF, Adjuvanted, 65+ Yrs, IM (FLUAD) 04/23/2022,03/12/2020 Seasonal Influenza, PF, 6 M & above, IM , (FluLaval or Fluzone) 04/10/2017 Seasonal Influenza, Quadriva lent Hd (Fluzone Hd) 04/13/2023 Seasonal Influenza, Quadriva lent Hd, 65+ Yrs 04/23/2021 Seasonal Influenza, Quadriva lent, No Preserve, IM 03/10/2016,03/08/2016 Seasonal Influenza, Split, I IV3, No Preserve, Inj 03/27/2019 Seasonal Influenza, Split, I IV3, With Preserve, Inj 03/27/2018 Seasonal Influenza, Trivalen t, High Dose, No Preserve, IM 03/27/2019 TDAP (age 10 and older)(Boostrix) 02/08/2016, Varicella Zoster Vaccine (Adult) 03/01/2016 Zoster Vaccine Recombinant (Shingrix) 05/02/2019 ,02/04/2019 documented as of this encounter Social History Tobacco Use Types Packs/Day Years Used Date Smoking Tobacco: Former Cigarettes 1.5 43 Smokeless Tobacco: Never Comments:Quit in 2004 Alcohol Use Standard Drinks/Week Comments Yes 0 (1 standard drink = 0.6 oz pur e alcohol) 1 drink 1x weekly; social AUDIT-C Answer Date Recorded Q1: How often do you have a drink containing alc ohol? 2-4 times a month 03/17/2022 Q2: How many drinks containi ng alcohol do you have on a typical day when you are drinking? 1 or 2 03/17/2022 Q3: How often do you have si x or more drinks on one occasion? Never 03/17/2022 PHQ-2 Answer Date Recorded PHQ Adult Total Score 0 02/07/2023 Hunger Vital Sign Answer Date Recorded Within the past 12 months, y ou worried that your food would run out before you got the money to buy more. Never true 06/21/20 22 Within the past 12 months, t he food you bought just didn't last and you didn't have money to get more. Never true 06/21/2022 Sex and Gender Information Value Date Recorded Sex Assigned at Female 07/08/2019 1:32 PM EST Gender Identity Female 07/08/2019 1:32 PM EST Sexual Orientation Straight 07/08/2019 1: 32 PM EST Job Start Date Occupation Industry Not on file Not on file Not on file documented as of this encounter Functional Status Functional Status Response Date of Assess ment Are you deaf or do you have serious difficulty h earing? No 09/01/2021 Are you blind or do you have serious difficulty seeing, even when wearing glasses? No 09/01/2021 Do you have serious difficul ty walking or climbing stairs? (5 years old or older) No 09/01/2021 Do you have difficulty dress ing or bathing? (5 years old or older) No 09/01/2021 Because of a physical, menta l, or emotional condition, do you have difficulty doing errands alone such as visiting a doctor s office or shopping? (15 years old or older) No 09/01/19 Cognitive Status Response Date of Assessm ent Because of a physical, menta l, or emotional condition, do you have serious difficulty concentrating, remembering, or making decisions? (5 years old or older) No 09/01/2021 documented as of this encounter Miscellaneous Notes * Telephone Encounter - Robyn Ruiz PA-C - 10/19/2023 4:35 PM EDT Called patient at 4 pm with no answer x 2. Asked nurse to call from and patient having a lot of pain 8-9/10 with inability to have bowel movement. Spoke with patient directly. She is having 8/10 pain that started today. She was feeling fine up until today. Took Milk of magnesia this morning and then miralax, stool softener, and fiber gummies and still not able to have a bowel movement. Only taking Tylenol for pain , has not tried the narcotic. Sitz baths multiple times a day. Advised to start taking Percocet due to her severe pain as she likely is not able to relax in orderto have bowel movement secondary to pain. Percocet now and every 4 hours. Alternate with 400 mg Ibuprofen every 4 hours. Continue drinking plenty of fluids and take Stool softener and Fiber daily. Once pain medication kicks in, advised to doa sitz bath to help relax more and hopefully that will allow for bowel movement to pass. Advised if pain still 8/10 and not controlled by this evening to call answering service or if severe go to emergency department. Will have nurses check in with her tomorrow morning to see if pain better controlled and able to have a bowel movement. Robyn Ruiz PA-C 10/19/2023 4:39 PM * Telephone Encounter - Kathleen Stark OSA - 10/19/2023 12:06 PM EDT Patient calling in , she is having trouble making a bowel movement , she has tried milk of mag, stool softer , jackie lax, fiber gummies, is in a lot of pain from it, unable to transfer to office, please call to advise, thanks documented in this encounter Plan of Treatment Upcoming Encounters Date Type Department Care Team (Late st Contact Info) Description 11/01/2023 1:00 PM EDT Office Visit General Surgery, [facility] [address] [address] Chandrakant Greenwood MD [address] [address] 12/14/2023 1:30 PM EDT Office Visit Ophthalmology, [facility] [address] [address] Gomez Santiago, DO [address] [address] 01/25/2024 2:40 PM EDT Office Visit General Internal Medicine [facility] [address] [place] [address] Henry Tejada MD [address] [place] [address] 04/15/2024 11:15 AM EDT Imaging Radiology [address] [facility] [place] [address] Health Maintenance Due Date Last Done Comments COVID-19 Vaccine ( season) 2023 02/22/2021, 08/11/2020, 07/11/2020 Depression Screening 02/08/2024 02/07/2023 HbA1c 02/09/2024 02/08/2023, 03/11, 11/11/2021, Additional history exists TSH 02/09/2024 02/08/2023, 03/11, 07/13/2021, Additional history exists DXA Scan 10/11/2025 10/11/2021, 10/2021, 09/03/2018 DTaP,Tdap,and Td Vaccines (3 - Td or Tdap) 02/07/2026 02/08/2016, 11/02/2015 Pneumococcal Vaccine: 65+ Years Completed 06/22/2017, 02/17/2016 Hepatitis B Completed 01/28/2019, 08/10, 07/18/2018 Zoster Vaccines Completed 05/02/2019, 01/08, 03/01/2016 Fecal Occult Blood Test Discontinued 04/01/2022, 04/01 Colonoscopy Discontinued 04/18/2022, 04/18/2022 Colorectal Cancer Screening Discontinued Influenza Vaccine (FLU shot) Completed 04/13/2023, 04/23/2022, 04/23/2021, Additional history exists Cologuard Discontinued GARDASIL-HPV IMMUNIZATION SERIES Aged Out No longer eligible based on patient's age to complete this topic MENINGOCOCCAL (MENACTRA/MENVEO) Aged Out No longer eligible based on patient's age to complete this topic Sigmoidoscopy Discontinued documented as of this encounter Medical Devices Not on filedocumented as of this encounter Additional Health Concerns Infection Onset Date Last Indicated Resolved Time Campylobacter 04/01/2022 04/01/2022 Norovirus 04/01/2022 04/01/2022 Rotavirus 04/01/2022 04/01/2022 documented as of this encounter Advance Directives Latest Code Status on File Code Status Date Activated Date Inactivated Comments Full Code 10/17/2023 9:07 AM 10/17/2023 4:04 PM This or mayur reflects the patients wishes and were consensually agreed upon. Question Answer Comments Discussion of Advance Directives occurred with: Patient Code Status History Code Status Date Activated Date Inactivated Comments Full Code 08/31/2021 10:43 PM 09/03/2021 9:28 PM This order reflects the patients wishes and were consensually agreed upon. Question Answer Comments Discussion of Advance Directives occurred with: Patient Care Teams Chemistry Manager Relationship Specialty Start Date End Date Henry Tejada MD [address] [place] [address] PCP - General Internal Medicine 07/08/19 documented as of this encounter
--- OUTSIDE RECORDS SUMMARY | 2023-10-21 12:42 | External Medical Summary | Summary of Care ---
Author Name Unknown Organization [facility] Address [address] [place] [address] Phone [phone] Care Team Providers Care Cable Worker Helper Name Role Phone Henry Tejada MD Primary Care Provider + Reason for Visit * Reason Onset Date Comments Other 10/19/2023 Encounter Details Date Type Department Care Team (Late st Contact Info) Description 10/19/2023 Telephone General Surgery, [facility] [address] [place] [address] Chandrakant Greenwood MD [address] [place] [address] Other Allergies Active Allergy Reactions Criticality Noted Date [...] 09/19/2022 Active Additional Information Patient taking differently:2 [place] Each NostrilPRN, Rhinitis, St 09/19/2022, Reported on [...] encounter Miscellaneous Notes * Telephone Encounter - Homa Bah LPN - 10/19/2023 4:14 PM EDT Was asked by provider to try and contact pt since she was unsuccessful in several attempts to reachthe pt. Pt called and stating when we spoke that she could not reach the phone in time for her phone call. Pt stating that she has a sharp pain at her rectum and feels hard stool- pt not sure how to get it to come out, pt took MOM this morning, stool softner this afternoon, fiber gummies x 3, miralax x 1 capful and another dose of MOM. Pt has taken plenty of water and apple juice today. Pt also drinking gaterade and veggie soup. Pt stating that her pain level is 8-9/10. Pt is only taking tylenol and ibuprofen for pain. Pt is urinating, I forgot to ask if she is passing gas. Pt has not had a BM since surgery. TT with Christina Ruiz- she is to call patient. * Telephone Encounter - Jessica Alan LPN - 10/19/2023 12:32 PM EDT Called patient and she said she has to go to the bathroom but is afraid to push, I said you need topush to get it out, she has used MOM, miralax, stool softener * Telephone Encounter - Natalie Elizondo PHARM Tech - 10/19/2023 12:09 PM EDT Incoming call from patient's ec stating patient is in a lot of pain and is having difficulty urinating since her surgery on 10/17/23. Attempting to contact nurse line with no answer. Pt can be reached at [phone]. Thank you, Natalie Elizondo Yeast Fermentation Attendant [facility] ([facility]) 10/19/2023,12:11 PM documented in this encounter Plan of Treatment Upcoming Encounters Date Type Department Care Team (Late st Contact Info) Description 11/01/2023 1:00 PM EDT Office Visit General Surgery, [facility] [address] [address] Chandrakant Greenwood MD [address] [place] [address] 12/14/2023 1:30 PM EDT Office Visit Ophthalmology, [facility] [address] [address] Gomez Santiago, [address] [facility] [place] [address] 01/25/2024 2:40 PM EDT Office Visit General Internal Medicine [facility] [address] [facility] [place] [address] Henry Tejada MD [address] [facility] [place] [address] 04/15/2024 11:15 AM EDT Imaging Radiology [address] 132 [facility] [place] [address] Health Maintenance Due Date Last Done Comments [...] Advance Directives occurred with: Patient Care Teams Cable Worker Helper Relationship Specialty Start Date End Date Henry Tejada MD [address] [place] [address] PCP - General Internal Medicine 07/08/19 documented as of this encounter
--- OUTSIDE RECORDS SUMMARY | 2023-10-21 12:42 | External Medical Summary | Summary of Care ---
Author Name Unknown Organization [facility] Address [address] [place] [address] Phone [phone] Care Team Providers Care Associate Scientist Name Role Phone Henry Tejada MD Primary Care Provider + Reason for Visit * Auth/Cert Specialty Diagnoses / Procedures Referred By Tenisha lópez Referred To Contact Diagnoses Hemorrhoids Hemorrhoids [K64.9] Procedures ANORECTAL EXAM ,DIAG, REQUIRING ANESTHESIA ANORECTAL EXAM UNDER ANESTHESIA Chandrakant Greenwood MD [address] [place] [address] [address] [place] [id number] Referral ID Status Reason Start Date Expiration Date Visits Re quested Visits Authorized [id number] Encounter Details Date Type Department Care Team (Latest Contact Info) Description 10/17/2023 7:33 AM EDT - 10/17/2023 11:50 AM EDT Hospital Encounter [facility], Operating Room [facility] [address] [place] [id number] Chandrakant Greenwood MD [address] [place] [id number] Discharge Disposition: Home - Self Care Allergies Active Allergy Reactions Criticality Noted Date Comments Shellfish Allergy 01/08/2020 ONLY [facility] documented as of this encounter (statuses as of 10/18/2023) Medications Medication Sig Dispensed Refills Start Date End Date Status Vitamin D3 50 MCG (1999) Oral Tablet Take 1 Tablet by mouth in the morning. 0 Active Loratadine 10 MG Oral Tablet (Claritin)Indicatio ns:Cough,Post-nasal drip,Bilateral chronic serous otitis media Take by mouth 1 Tablet in the morning. 30 Tablet 5 2 Active Fluticasone Propionate 50 MCG/ACT Nasal Suspension (Flonase)Indication s:Dysfunction of right eustachian tube,History of serous otitis media Administer 2 Sprays into each nostril in the morning. St 09/19/2022. 1 mL 0 3 Active Additional Information Patient taking differently:2 [place] Each NostrilPRN, Rhinitis, St 09/19/2022, Reported on 04/28/2023 B-12 1000 MCG Oral Capsule Take 1 Capsule by mouth in the morning. 0 Active Levothyroxine Sodium 25 MCG Oral Tablet (Levoxyl)Indication s:Acquired hypothyroidism TAKE 1 TABLET BY MOUTH ONCE DAILY IN THE MORNING (AT LEAST 30 MINUTES PRIOR TO BREAKFAST OR OTHER MEDICATIONS) 90 Tablet 3 3 Active Atorvastatin Calcium 20 MG Oral Tablet (Lipitor)Indication s:Nonrheumatic aortic valve insufficiency,Dysli pidemia, goal LDL below 100 Take 1 tablet by mouth in the evening 90 Tablet 3 3 Active Mupirocin Calcium 2 % External Cream Apply topically to affected area 4 times a day. 0 3 Active Meloxicam 15 MG Oral TabletIndications:A cute right-sided low back pain without sciatica TAKE 1 TABLET BY MOUTH IN THE MORNING FOR PAIN 30 Tablet 1 3 Active Hydrocortisone 1 % External Ointment Apply topically to affected area 2 times a day. Apply to rectal area twice daily as needed for hemorrhoids 30 g 1 3 Active Additional Information Patient not taking.Reported on 10/17/2023 Gabapentin 300 MG Oral Capsule (Neurontin)Indicati ons:Fibromyalgia One capsule in the morning. Two capsules in the evening. 270 Capsule 1 3 Active DULoxetine HCl 60 MG Oral Capsule Delayed Release Particles (Cymbalta) Take 1 capsule by mouth once daily 90 Capsule 1 4 Active Ozempic (2 MG/DOSE) 8 MG/3ML Subcutaneous Solution Pen-injector (Semaglutide (2 MG/DOSE))Indication s:Prediabetes,Class 1 obesity INJECT 2MG SUBCUTANEOUSLY ONCE A WEEK 3 mL 3 4 Active clonazePAM 1 MG Oral Tablet (KlonoPIN)Indicatio ns:Anxiety TAKE 1 TABLET BY MOUTH ONCE DAILY AT BEDTIME NEEDED FOR SLEEP 30 Tablet 0 4 Active oxyCODONE-Acetamino phen 5-325 MG Oral Tablet (Percocet) Take 1 Tablet by mouth every 4 hours as needed for Severe Pain for up to 15 doses. 10 Tablet 0 4 Active clonazePAM 1 MG Oral Tablet (KlonoPIN)Indicatio ns:Anxiety TAKE 1 TABLET BY MOUTH ONCE DAILY AT BEDTIME NEEDED FOR SLEEP 30 Tablet 0 4 10/16/19 24 Discontinu ed(Refill) documented as of this encounter (statuses as of 10/18/2023) Active Problems Problem Noted Date Diagnosed Date [...] as of this encounter (statuses as of 10/18/2023) Resolved Problems Problem Noted Date Diagnosed Date [...] as of this encounter (statuses as of 10/18/2023) Immunizations Name Administration Dates Next Due COVID-19 [...] on file documented as of this encounter Last Filed Vital Signs Vital Sign Reading Time Taken Comments Blood Pressure 109/68 10/17/2023 11:35 AM EDT Pulse 90 10/17/2023 11:35 AM EDT Temperature 36.1 C (97 F) 10/17/2023 11:20 AM EDT Respiratory Rate 18 10/17/2023 11:35 AM EDT Oxygen Saturation 95% 10/17/2023 11:35 AM EDT Inhaled Oxygen Concentration - - Weight 63.5 kg (140 lb) 10/17/2023 8:22 AM EDT Height 148.6 cm (4' 10.5") 10/17/2023 8:22 AM ED T Body Mass Index 28.76 10/17/2023 8:22 AM EDT documented in this encounter Functional Status Functional Status Response [...] No 09/01/2021 documented as of this encounter Discharge Instructions * Discharge Instr - AVS* Chandrakant Greenwood MD - 10/17/2023 10:13 AM EDT Discharge Date: 10/17/2023 The information below provides you with the instructions and the list of medications you need to betaking following discharge from the hospital. If you have any questions, please ask before leaving.Please carry this letter with you when you see your doctor in the clinic. If you have questions, you can reach us at the numbers above. Post Anesthesia Instructions: 1. Do not drive today. 2. Resume driving when surgeon permits. 3. Do not make important decisions or sign legal documents today. 4. Call surgeon for: Temperature evaluation greater than 101 degrees Uncontrollable pain Excessive Bleeding Persistent Nausea and vomiting Medication intolerance (nausea, vomiting, or rash) 5. For nausea and vomiting use only clear liquids such as: tea, soda, bouillon until nausea subsides, then gradually increase diet as tolerated. 6. If you have any concerns or questions, call your surgeon's office at [phone] . If the physician is unavailable and it is an emergency, call 911 or go to the nearest emergency room. Preprinted instructions given: None (Form No.) Special Care / Other: The following information will help you make a more comfortable and rapid recovery after anorectal surgery: DIET: A high fiber diet is recommended. Drink extra liquids (water, juice, milk) to avoid constipation. Drink approximately 8 eight-ounce glasses each day. ACTIVITY Climbing stairs, walking and car riding may be done in moderation. Do not drive a car while taking prescription pain medication. Do not do strenuous exercise or heavy lifting. It is a good idea to avoid exercise and heavy lifting for about 2 weeks minimum. Consult us if you are uncertain. MEDICATIONS: Milk of Magnesia - you may take one tablespoon twice a day until your first bowel movement. If yourBM is hard, continue the Milk of Magnesia (MOM). When your BM is soft, stop the Milk of Magnesia, but continue the stool-bulking agent. Because narcotics can make your BM hard, sometimes even after your BM passes, you may need to continue the MOM to keep the stools moving. Stool-bulking agent: Metamucil, Citrucel or Konsyl. Take one teaspoon two times a day. Mix in 8 ounces of fluid (water or juice) and follow with another 8 ounces of fluid. Continue to take the stool-bulking agent until told to discontinue by your physician. The bulking agent gently dilates the anusand prevents anal stenosis or narrowing. Use your pain medication as prescribed. Continue any other medications as directed by your physician. You may take Acetominophen (Tylenol) instead of the prescribed pain medication. Avoid aspirin as this affects the bloods ability to clot and may delay healing. Acetominophen does not affect the bloods ability to clot. Apply anal ointment to area with a cotton dressing after each bowel movement and bath. If you had fistula surgery, you do not need to use any ointment--just protect the anal skin with a cotton ball. CARE OF OPERATIVE SITE Sitz baths, comfortably warm, should be taken three times a day, especially after bowel movements. Start these the day after surgery. These soaks should last no longer than 10 minutes. Avoid soap as it can irritate the skin. Dry your anus completely using a hairspring i inspector. Set the hairspring i inspector on low heat to avoid burning skin surfaces. Avoid using dry toilet paper. After bowel movements, you can clean yourself with wet toilet paper, cotton or Tucks Pads. Place a cotton ball or square on the anus to absorb any moisture or discharge from the anal wounds.This will help decrease bacteria in the area and speed healing. Feminine pads are less effective atdoing this. SPECIAL CONSIDERATIONS Bowel movements after anal surgery are usually associated with some discomfort which improves as healing progresses. You should have a bowel movement at least every other day. If two to three days pass without a bowel movement, take one tablespoon of Milk of Magnesia. If there is no result by six hours, repeat this every 4 hours until a BM results. After 24 hours, if thereis still no result, you may give yourself a gentle tap water enema. Do not strain to move your bowels. Call us if there is still no result. Some bloody discharge, especially after bowel movements, can be expected. If there is prolonged or profuse bleeding (more than 1 cup), call us immediately. Call if you develop a temperature of 101 degrees (Fahrenheit) or greater or if you develop severe tenderness, a lot of redness or profuse discharge of pus from your anus. Some discharge is expected. Activity : Rest today. and Do not do any heavy lifting (more than 20 pounds) or any vigorous exercise for 2-3 weeks. Return to School or Work: Limitations 1-2 weeks; see the activity restrictions listed above Diet: Resume previous diet Follow-up Visit with: Dr. Greenwood When: in 2 weeks Discharged To: Home documented in this encounter Progress Notes * Chandrakant Greenwood MD - 10/17/2023 10:11 AM EDT [facility] [address] [address] OUTPATIENT SURGERY DISCHARGE SUMMARY NOTE Name: Joya Collazo Location: [facility]/[place] Date: 10/17/2023 Time: 10:11 AM Surgery Date: 10/17/2023 Procedure: ANORECTAL EXAM UNDER ANESTHESIA N/A Surgeon: Chandrakant Greenwood MD Discharge Diagnosis: Hemorrhoids After examination of this patient, I have determined she is ready for discharge to home when the patient meets criteria. Discharge instructions were given to the patient. documented in this encounter H&P Notes * Chandrakant Greenwood MD - 10/17/2023 9:06 AM EDT Chief Complaint: No chief complaint on file. History of Present Illness: Joya Collazo is a 73 year old female who is referred for evaluation of hemorrhoids which have been present for many years. Bleeding: yes Pruritus: yes Prolapse: yes Difficulty with hygeine: yes Tried medical therapy: yes Past Medical History Past Medical History Past Medical History: Diagnosis Date Acquired hypothyroidism 09/05/2019 Aortic valve insufficiency 12/01/2016 Borderline diabetic Cyst of right kidney 10/08/2021 DDD (degenerative disc disease), lumbar Dyslipidemia, goal LDL below 130 12/01/2016 Fibromyalgia Gastroesophageal reflux disease without esophagitis 01/12/2021 Hypothyroid Mixed hyperlipidemia 01/13/2022 Multiple pulmonary nodules 06/22/2017 Seen by pulmonology; no need for further follow up Osteopenia PMR (polymyalgia rheumatica) (HCC) 01/08/2020 Preseptal cellulitis of left eye 08/31/2021 Past Surgical History Past Surgical History Past Surgical History: Procedure Laterality Date DELIVERY x2 COLONOSCOPY, DIAGNOSTIC (RECTUM) 04/18/2022 hemorrhoids/diverticulosis sigmoid and descending colon/biopsies normal/COLONOSCOPY FLEXIBLE PROXIMAL DIAGNOSTIC performed by Miller Del Castillo MD at ENDOSCOPY [facility] MISCELLANEOUS ORDER ([facility] ONLY) Left 2009 cmc arthroplasty SPINAL FUSION, LUMBAR, COMBINED Medications: Current Medications Current Outpatient Medications Medication Sig Dispense Refill Vitamin D3 50 MCG (1999 [place]) Oral Tablet Take 1 Tablet by mouth in the morning. Loratadine 10 MG Oral Tablet (Claritin) Take by mouth 1 Tablet in the morning. 30 Tablet 5 Fluticasone Propionate 50 MCG/ACT Nasal Suspension (Flonase) Administer 2 Sprays into each nostril in the morning. St 09/19/2022. (Patient taking differently: Administer 2 Sprays into each nostril as needed for Rhinitis. St 09/19/2022) 1 mL 0 B-12 1000 MCG Oral Capsule Take 1 Capsule by mouth in the morning. Levothyroxine Sodium 25 MCG Oral Tablet (Levoxyl) TAKE 1 TABLET BY MOUTH ONCE DAILY IN THE MORNING (AT LEAST 30 MINUTES PRIOR TO BREAKFAST OR OTHER MEDICATIONS) 90 Tablet 3 Atorvastatin Calcium 20 MG Oral Tablet (Lipitor) Take 1 tablet by mouth in the evening 90 Tablet 3 Mupirocin Calcium 2 % External Cream Apply topically to affected area 4 times a day. Meloxicam 15 MG Oral Tablet TAKE 1 TABLET BY MOUTH IN THE MORNING FOR PAIN 30 Tablet 1 Hydrocortisone 1 % External Ointment Apply topically to affected area 2 times a day. Apply to rectal area twice daily as needed for hemorrhoids 30 g 1 Gabapentin 300 MG Oral Capsule (Neurontin) One capsule in the morning. Two capsules in the evening.270 Capsule 1 DULoxetine HCl 60 MG Oral Capsule Delayed Release Particles (Cymbalta) Take 1 capsule by mouth oncedaily 90 Capsule 1 Ozempic (2 MG/DOSE) 8 MG/3ML Subcutaneous Solution Pen-injector (Semaglutide (2 MG/DOSE)) INJECT 2MG SUBCUTANEOUSLY ONCE A WEEK 3 mL 3 clonazePAM 1 MG Oral Tablet (KlonoPIN) TAKE 1 TABLET BY MOUTH ONCE DAILY AT BEDTIME NEEDED FOR SLEEP 30 Tablet 0 No current facility-administered medications for this visit. Allergies: Allergies as of 09/27/2023 - Reviewed 09/27/2023 Allergen Reaction Noted Shellfish allergy 01/08/2020 Family History Family History Problem Relation Age of Onset Heart Disorder Mother CHF Mental Disorder Mother Heart Disorder Father bypass aortic valve Other (Other) Sister high bp Other (Other) Sister cholesterol Cancer Brother prostate Other (Other) Brother cholesterol Depression Brother Suicide attempts Brother Heart Disorder Aunt (Unspecified) bypass, aortic valve Heart Disorder Aunt (Unspecified) bypass, aortic valve Breast Cancer Aunt (Maternal) Social History Social History Socioeconomic History Marital status: Spouse name: Not on file Number of children: 2 Years of education: Not on file Highest education level: Not on file Occupational History Occupation: Retired Tobacco Use Smoking status: Former Current packs/day: 1.50 Average packs/day: 1.5 packs/day for 43.0 years (64.5 ttl pk-yrs) Types: Cigarettes Smokeless tobacco: Never Tobacco comments: Quit in 2004 Substance and Sexual Activity Alcohol use: Yes Comment: 1 drink 1x weekly; social Drug use: Never Sexual activity: Not Currently Other Topics Concern Not on file Social History Narrative Not on file Social Determinants of Health Financial Resource Strain: Not on file Food Insecurity: No Food Insecurity (06/21/2022) Hunger Vital Sign Worried About Running Out of Food in the Last Year: Never true Ran Out of Food in the Last Year: Never true Transportation Needs: Not on file Physical Activity: Not on file Stress: Not on file Social Connections: Not on file Intimate Partner Violence: Not on file Housing Stability: Not on file ROS: GEN: no weight loss, fever, fatigue HEENT: no changes in vision or hearing, no sinus problems, no sore throat, no hoarseness RESPIRATORY: no cough, wheezing, SOB or change in breathing CARDIOVASCULAR: no exertional chest pain, dyspnea, palpitations GI: see HPI, otherwise negative : no dysuria, hematuria, frequency MUSCULOSKELETAL: no change in joint pains, no new arthritis PSYCHIATRIC: no significant anxiety or depression, unchanged sleep pattern HEME: no bleeding tendency, no clotting tendency NEURO: no significant headache, no seizures , no tremors SKIN: no new rashes, no itching Physical Exam: There were no vitals taken for this visit. Constitutional: alert,healthy,well nourished Head: normocephalic,atraumatic Eyes: conjunctiva non-injected,sclera white,EOMI Neck: supple,no JVD,trachea midline Lungs: clear to auscultation,breath sounds are equal and symmetric,no crepitus Heart: regular rate & rhythm,no murmur, gallops or rubs Abdomen: soft, non-tender Back: normal curvature,normal ROM,no CVA tenderness Extremities: no edema, no skin discoloration Skin: no obvious rashes or significant lesions,warm and dry with good turgor Rectal: GUERRERO with normal tone, no gross blood, grade 3 internal hemorrhoids; no masses Anoscopy: She was placed in left lateral decubitus position. Anoscopy commenced in the usual fashion. Findings include grade 3 hemorrhoids, no masses, no gross blood, no fissure fistula. She tolerated the procedure without complication. Impression: Joya Collazo is a 73 year old female with hemorrhoids. Conservative treatment with use of stool softeners, fiber therapy, sitz baths and ointments discussed in detail. Internal / externalhemorrhoidectomy discussed with risks of bleeding, infection, recurrence, anal stenosis, and postoperative pain. Expected same day nature of surgery, IV sedation, postop recovery period of 2-4 weeks reviewed. Importance of bowel regimen after surgery to prevent recurrence reviewed. Discussed postopcare to include sitz baths daily. Treatment Plan: Schedule internal / external hemorrhoidectomy. Consent signed. Attending: Chandrakant Greenwood MD 09/27/2023 8:54 AM documented in this encounter Nursing Notes * Lyssa Taylor RN - 10/17/2023 11:50 AM EDT Vs stable. Reports pressure is tolerable. Denies nausea and tolerating PO intake. Dressing dry and intact. Patient and family verbalized understanding of all discharge directions. Patient stable for discharge to home. 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 * Lyssa Taylor RN - 10/17/2023 11:15 AM EDT OOB to restroom. Voided without difficulty. Feels nausea and pressure relived. Sitting upright in bed drinking gingerale and eating crackers. VS remain stable. Dressing dry and intact. Stable for discharge from pacu 1. * Lyssa Taylor RN - 10/17/2023 10:51 AM EDT Reports feeling "queezy" in stomach. * Lyssa Taylor RN - 10/17/2023 10:38 AM EDT Reports pressure to resctum and requests pain medication * Lyssa Taylor RN - 10/17/2023 10:04 AM EDT Patient received to pacu 1 status post hemorrhoidectomy. Patient awakens easily to name. No signs of pain. Respirations are even and unlabored on simple mask. NSR on monitor. Abdomen soft and non distended. Rectal dressing is dry and intact. Vital signs stable. * Julieth Valentin RN - 10/17/2023 8:53 AM EDT Surgical consent verified with patient. Patient agrees with listed procedure and verified signature. documented in this encounter OR Notes * OR Surgeon - Chandrakant Greenwood MD - 10/17/2023 10:08 AM EDT [facility] [address] [address] OPERATIVE REPORT Name: Joya Collazo Date: 10/17/2023 Time: 10:08 AM Location: [facility] Service: General Surgery Date of Operation: 10/17/2023 Pre-op Diagnosis: Grade 4 hemorrhoids Post-op Diagnosis: Same Surgeon: Chandrakant Greenwood MD Assistants: None Anesthesia: General endotracheal anesthesia Operation: Exam under anesthesia with hemorrhoidectomy, multiple piles internal and external Pathology: Yes Specimens: Hemorrhoids Drains: None Complications: No immediate complications Indications and History: The patient is a 73 year old female with grade 4 hemorrhoids. The risks, benefits, complications, treatment options, and expected outcomes were discussed with the patient and/or family in detail. Thepossibilities of reaction to medication, pulmonary aspiration, bleeding, recurrent infection, the need for additional procedures, failure to diagnose a condition, and creating a complication requiring transfusion or operation were discussed with the patient who freely signed the consent. The patient concurred with the proposed plan, giving informed consent. Description of Operation: The patient was seen in the Holding Room and the site of surgery properly noted/marked. The patientwas taken to Operating Room [facility] OR , identified as Joya Collazo and the procedure verified as exam under anesthesia with hemorrhoidectomy. A Time Out was held and the above information confirmed. After the induction of anesthesia, the patient was sterilely prepped and draped in the usual fashion. The exam under anesthesia began in the usual fashion. A mixture of Exparel and 0.5% Marcaine was injected into and around the perianal area.There were large grade 4 hemorrhoids in the right anterior, right posterior, and left lateral positions. We began in the right posterior position. The hemorrhoids were excised with the LigaSure device. The resulting mucosal defect was reapproximated with 3-0 chromic suture. Attention was then turned to the right anterior position, again the hemorrhoids were excised with the LigaSure device and the mucosal defect was reapproximated with 3-0 chromic suture. Finally the left lateral hemorrhoids were excised with the LigaSure device and the resulting mucosal defect was reapproximated with 3-0 Vicryl. Attention was turned hemostasis, which was excellent. The wound was copiously irrigated. Betadine- soaked packing was placed. Dressings were applied. All needle, sharps, sponge and lap pad counts were correct. Estimated blood loss was 5 mL. The patient tolerated the procedure well. The patient was taken to the recovery area in stable condition. Attestation: I performed the procedure cc: Professional Reimbursement and Compliance Henry Tejada MD documented in this encounter Plan of Treatment Upcoming Encounters Date Type Department Care Team (Late st Contact Info) Description 10/19/2023 9:00 AM EDT Scheduled Telephone General Surgery, [facility] [address] [facility] [place] [address] Nurse [facility] Gen S[facility] [address] [place] [address] 11/01/2023 1:00 PM EDT Office Visit General Surgery, [facility] [address] [facility] [place] [address] Chandrakant Greenwood MD [address] [facility] [place] [address] 12/14/2023 1:30 PM EDT Office Visit Ophthalmology, [facility] [address] [place] [address] Gomez Santiago DO [address] [facility] [place] [address] 01/25/2024 2:40 PM EDT Office Visit General Internal Medicine [facility] [address] [facility] [place] [address] Henry Tejada MD [address] [facility] [place] [address] 04/15/2024 11:15 AM EDT Imaging Radiology [address] [facility] [place] [address] Pending Results Name Type Priority Associated Diagnoses Date /Time SURGICAL PATHOLOGY Pathology Routine Hemorrhoids 10/17/2023 9:42 AM EDT Scheduled Orders Name Type Priority Associated Diagnoses Orde r Schedule SURGICAL PATHOLOGY Pathology Routine Hemorrhoids Release Upon Ordering for 1 Occurrences starting 10/17/2023, 1 completed Health Maintenance Due Date Last Done Comments [...] Not on filedocumented as of this encounter Visit Diagnoses Diagnosis Hemorrhoids- Primary Unspecified hemorrhoids without mention of complication documented in this encounter Administered Medications Inactive Administered Medications - up to 3 most recent administrations Medication Order MAR Action Action Date Dose Rate Site Acetaminophen (Tylenol) tab 975 mg 975 mg, Oral, ONCE, On Mon10/17/23 at 0845, For 1 dose, Maximum of 4 grams (4000 mg) per day. Given 10/17/2023 8:19 AM EDT 975 mg cefOXitin in dextrose (Mefoxin) ivpb 2 g 2 g, IV Piggyback, PREOP, 1 dose, First dose on Mon10/17/23 at 0945, Administer 60 minutes prior to skin incision, Pre-Op New Bag 10/17/2023 9:18 AM EDT 2 g 100 mL/hr dexAMETHasone Sodium Phosphate (Decadron) 4 MG/ML inj 4 mg 4 mg, IV Push, PRN Nausea, Starting on Mon10/17/23 at 1039, Until Mon10/17/23 at 1604, For 1 dose, PROTECT FROM LIGHT, PACU fentaNYL (PF) inj 25 mcg 25 mcg, IV Push, PRN Pain, Severe, Starting on Mon10/17/23 at 1039, Until Mon10/17/23 at 1604, For 6 doses, When given IV Push its recommended that the dose be given over 3 to 5 minutes., PACU Given 10/17/2023 10:42 AM EDT 25 mcg isolyte-S pH 7.4 infusion Intravenous, Plasma-LYTE 148, isolyte-S, and isolyte-S pH 7.4 are considered equivalent - including for MAR barcode scanning., CONTINUOUS, Starting on Mon10/17/23 at 0845, Until Mon10/17/23 at 1604, Pre-Op Restarted 10/17/2023 9:20 AM EDT Continue from Pre-Op 10/17/2023 9:17 AM EDT 100 mL/hr New Bag 10/17/2023 8:47 AM EDT 1,000 mL 100 mL/hr ondansetron (Zofran) inj 4 mg 4 mg, IV Push, PRN Nausea, Starting on Mon10/17/23 at 1039, Until Mon10/17/23 at 1055, For 1 dose, PACU Given 10/17/2023 10:55 AM EDT 4 mg oxygen GAS Inhalation, OXYGEN, First dose on Mon10/17/23 at 1115, Until Discontinued, Device/Managed by: Low Flow Device, Goal SPO2 (%): 94 or greater, Starting Device: Simple Mask, Initial Flow Rate (LPM): 6, Lowest Support: Nasal Cannula: Flow 0-6 LPM. Titrate up/down by 1 LPM., Titration Interval: Q2 minutes and as needed., Notify Provider: For sudden DECREASE in resting SPO2 to less than 85% and when escalating delivery device., PACU I - Oxygen for saturation below 95% as indicated per anesthesia. PACU I - Discontinue oxygen when patient is responsive and oxygen saturation is maintained above 94% on room air or same as preanesthetic level. documented in this encounter Active and Recently Administered Medications Times are shown in EDT. Scheduled Medication Order 10/15/2023 10/16/2023 10/17/2023 Acetaminophen (Tylenol) tab 975 mg (COMPLETED) 975 mg, Oral, ONCE, On Mon10/17/23 at 0845, For 1 dose, Maximum of 4 grams (4000 mg) per day. 08 (Given - Provid er: Julieth Valentin RN) cefOXitin in dextrose (Mefoxin) ivpb 2 g (COMPLETED) 2 g, IV Piggyback, PREOP, 1 dose, First dose on Mon10/17/23 at 0945, Administer 60 minutes prior to skin incision, Pre-Op 917 (New Bag - Prov ider: Julieth Valentin RN) oxygen GAS Inhalation, OXYGEN, First dose on Mon10/17/23 at 1115, Until Discontinued, Device/Managed by: Low Flow Device, Goal SPO2 (%): 94 or greater, Starting Device: Simple Mask, Initial Flow Rate (LPM): 6, Lowest Support: Nasal Cannula: Flow 0-6 LPM. Titrate up/down by 1 LPM., Titration Interval: Q2 minutes and as needed., Notify Provider: For sudden DECREASE in resting SPO2 to less than 85% and when escalating delivery device., PACU I - Oxygen for saturation below 95% as indicated per anesthesia. PACU I - Discontinue oxygen when patient is responsive and oxygen saturation is maintained above 94% on room air or same as preanesthetic level. 1115 (Due) Continuous Medication Order 10/15/2023 10/16/2023 10/17/2023 isolyte-S pH 7.4 infusion Intravenous, Plasma-LYTE 148, isolyte-S, and isolyte-S pH 7.4 are considered equivalent - including for MAR barcode scanning., CONTINUOUS, Starting on Mon10/17/23 at 0845, Until Mon10/17/23 at 1604, Pre-Op 0847 (New Bag - Prov ider: Julieth Valentin RN)0917 (Continue from Pre-Op - Provider: Liss Meyer CRNA)0919 (Paused - Provider: Liss Meyer CRNA - Comment: Switch to gravity)0920 (Restarted - Provider: Liss Meyer CRNA)1002 (Anes Intra-Op Fluid - Provider: Liss Meyer CRNA) isolyte-S pH 7.4 infusion Intravenous, Plasma-LYTE 148, isolyte-S, and isolyte-S pH 7.4 are considered equivalent - including for MAR barcode scanning., CONTINUOUS, Starting on Mon10/17/23 at 0945, Until Mon10/17/23 at 1604, Pre-Op 0945 (Due) PRN Medication Order 10/15/2023 10/16/2023 10/17/2023 bupivacaine Liposome (Exparel) infiltration (CANCELED) ONCE PRN INTRA PROCEDURE, Starting on Mon10/17/23 at 0949, Until Mon10/17/23 at 0952, Intra-Op 0949 (Given - Provid er: Chandrakant Greenwood MD - Comment: 266 mg given) BUPivacaine-EPINEPHrine (Sensorcaine W/ Epi) 0.5%-1:243622 inj (CANCELED) ONCE PRN INTRA PROCEDURE, Starting on Mon10/17/23 at 0951, Until 10/17/23 at 0952, Intra-Op 0951 (Given - Provid er: Chandrakant Greenwood MD - Comment: rectum - mixed with exparel) dexAMETHasone Sodium Phosphate (Decadron) 4 MG/ML inj 4 mg 4 mg, IV Push, PRN Nausea, Starting on Mon10/17/23 at 1039, Until Tu10/17/23 at 1604, For 1 dose, PROTECT FROM LIGHT, PACU fentaNYL (PF) inj 25 mcg 25 mcg, IV Push, PRN Pain, Severe, Starting on Mon10/17/23 at 1039, Until 10/17/23 at 1604, For 6 doses, When given IV Push its recommended that the dose be given over 3 to 5 minutes., PACU 1042 (Given - Provid er: Lyssa Taylor RN) ondansetron (Zofran) inj 4 mg (COMPLETED) 4 mg, IV Push, PRN Nausea, Starting on Mon10/17/23 at 1039, Until Mon10/17/23 at 1055, For 1 dose, PACU 1055 (Given - Provid er: Lyssa Taylor RN) documented in this encounter Additional Health Concerns Infection Onset [...] Advance Directives occurred with: Patient Care Teams Associate Scientist Relationship Specialty Start Date End Date Henry Tejada MD [address] [facility] [place] [address] PCP - General Internal Medicine 07/08/19 documented as of this encounter
--- OUTSIDE RECORDS SUMMARY | 2023-10-21 12:42 | External Medical Summary | Summary of Care ---
Author Name Unknown Organization [facility] Address [address] [place] [address] Phone [phone] Care Team Providers Care Stretch Press Operator Name Role Phone Henry Tejada MD Primary Care Provider + Reason for Visit * Reason Onset Date Comments Other 10/19/2023 Encounter Details Date Type Department Care Team (Late st Contact Info) Description 10/19/2023 Telephone General Surgery, [facility] [address] [place] [address] Chandrakant Greenwood MD [address] [place] [address] Other Allergies Active Allergy Reactions Criticality Noted [...] 09/19/2022 Active Additional Information Patient taking differently:2 [place] Each NostrilPRN, Rhinitis, St 09/19/2022, Reported on [...] encounter Miscellaneous Notes * Telephone Encounter - Jessica Alan LPN - 10/19/2023 12:32 PM EDT Called patient and she said she has to go to the bathroom but is afraid to push, I said you need topush to get it out, she has used MOM, miralax, stool softener * Telephone Encounter - Natalie Elizondo, vehicle refinisher - 10/19/2023 12:09 PM EDT Incoming call from patient's ec stating patient is in a lot of pain and is having difficulty urinating since her surgery on 10/17/23. Attempting to contact nurse line with no answer. Pt can be reached at [phone]. Thank you, Natalie Elizondo Paleologist [facility] (formerly Tele[facility]) 10/19/2023,12:11 PM documented in this encounter Plan of Treatment Upcoming Encounters Date Type Department Care Team (Late st Contact Info) Description 11/01/2023 1:00 PM EDT Office Visit General Surgery, [facility] [address] [place] [address] Chandrakant Greenwood MD [address] [place] [address] 12/14/2023 1:30 PM EDT Office Visit Ophthalmology, [facility] [address] [place] [address] Gomez Santiago DO [address] [place] [address] 01/25/2024 2:40 PM EDT Office Visit General Internal Medicine [facility] 200 [facility] [place] [address] [facility] Tejada MD [facility] [address] 04/15/2024 11:15 AM EDT Imaging Radiology [facility]st [facility] 132 [facility] [place] [address] Health Maintenance Due Date Last Done Comments COVID-19 Vaccine ( season) 2023 02/22/2021, 08/11/2020, 07/11/2020 Depression Screening 02/08/2024 02/07/2023 HbA1c 02/09/2024 02/08/2023, 03/11, 11/11/2021, Additional history exists TSH 02/09/2024 02/08/2023, 03/11, 07/13/2021, Additional history exists DXA Scan 10/11/2025 10/11/2021, 04/0 10/2021, 09/03/2018 DTaP,Tdap,and Td Vaccines (3 - [...] Advance Directives occurred with: Patient Care Teams Stretch Press Operator Relationship Specialty Start Date End Date Henry Tejada MD [address] [place] [address] PCP - General Internal Medicine 07/08/19 documented as of this encounter
--- OUTSIDE RECORDS SUMMARY | 2023-10-21 12:42 | External Medical Summary | Summary of Care ---
Author Name Unknown Organization [facility] Address [address] [place] [address] Phone [phone] Care Team Providers Care Tariff Supervisor Name Role Phone Henry Tejada MD Primary Care Provider + Reason for Visit * Reason Onset Date Comments Follow Up 10/19/2023 Postop call Encounter Details Date Type Department Care Team (Late st Contact Info) Description 10/19/2023 9:00 AM EDT Scheduled Telephone General Surgery, [facility] [address] [place] [address] [facility] [address] [place] [address] Arrived Allergies Active Allergy Reactions Criticality Noted Date [...] 09/19/2022 Active Additional Information Patient taking differently:2 [place] Each NostrilPRN, Rhinitis, St 09/19/2022, Reported on [...] encounter Miscellaneous Notes * Telephone Encounter - Bhargavi Moraes, MED ASSIST - 10/19/2023 8:23 AM EDT PATIENT IS S/p Exam under anesthesia with hemorrhoidectomy, multiple piles internal and externa on 10/17/[address] Chandrakant Greenwood Pain Level- 4 Meds being taken for pain- tylenol Are pain meds effective- not really helping Incision sites- ok Does the patient have a drain- no Does the patient have dressings? Are they aware of dressing instructions- yes Appetite- fine Nausea/vomiting- no Bowel movement- no, suggested miralax Activity- walking Complying with activity restrictions- yes Coughing and deep breathing- no but told of importance Questions or concerns- does she need to take a sitz bath after every time she urinates and has a bowel movement. I said not two sitz baths a day and everytime you have a bowel movement, if you want to take one after urinating because of the blood that is fine. Post operative follow up scheduled for 11/01/2023 documented in this encounter Plan of Treatment Upcoming Encounters Date Type Department Care Team (Late st Contact Info) Description 11/01/2023 1:00 PM EDT Office Visit General Surgery, [facility] [address] [place] [address] Chandrakant Greenwood MD 132 [facility] [place] [address] 12/14/2023 1:30 PM EDT Office Visit Ophthalmology, [facility] [address] [place] [address] Gomez Santiago DO 21 [facility] [place] [address] 01/25/2024 2:40 PM EDT Office Visit General Internal Medicine [facility] 200 [facility] [place] [address] Henry Tejada MD 200 [facility] [address] 04/15/2024 11:15 AM EDT Imaging Radiology [facility] 1st [facility] 132 [facility] [place] [address] Health Maintenance Due Date Last Done Comments [...] Advance Directives occurred with: Patient Care Teams Tariff Supervisor Relationship Specialty Start Date End Date Henry Tejada MD 200 [place] [address] PCP - General Internal Medicine 07/08/19 documented as of this encounter
--- OUTSIDE RECORDS SUMMARY | 2023-10-21 12:42 | External Medical Summary | Summary of Care ---
Author Name Unknown Organization [facility] Address [address] [place] [address] Phone [phone] Care Team Providers Care Manager State Name Role Phone Henry Tejada MD Primary Care Provider + Reason for Visit * Reason Onset Date Comments Advice 10/18/2023 Encounter Details Date Type Department Care Team (Late st Contact Info) Description 10/18/2023 Telephone General Surgery, [facility] [address] [place] [address] Chandrakant Greenwood MD [address] [facility] [place] [address] Advice Allergies Active Allergy Reactions Criticality Noted Date [...] 09/19/2022 Active Additional Information Patient taking differently:2 [place] Each NostrilPRN, Rhinitis, St 09/19/2022, Reported on [...] encounter Miscellaneous Notes * Telephone Encounter - Odalys Guallpa LPN - 10/18/2023 9:32 AM EDT Patient called office for advice after recent hemorrhoidectomy. She called to say that the gauze placed during surgery got wet and she replaced it with a maxi pad and depends, and was wondering if that was okay. Patient was assured that that fine to use maxi pad for drainage if she did not have gauze. Direction for sitzs bath reviewed with patient and she verbalized understanding and agreement. She also asked if it was okay that she had clear drainage, and she was reassured that drainage is normal. documented in this encounter Plan of Treatment Upcoming Encounters Date Type Department Care Team (Late st Contact Info) Description 10/19/2023 9:00 AM EDT Scheduled Telephone General Surgery, [facility] 132 [facility] [place] [address] [facility], Nurse Gen Surg [facility] 132 [facility] [place] [address] 11/01/2023 1:00 PM EDT Office Visit General Surgery, [facility] [address] [facility] [place] [address] Chandrakant Greenwood MD 132 [facility] [place] [address] 12/14/2023 1:30 PM EDT Office Visit Ophthalmology, [facility] [address] [place] [address] Gomez Santiago, DO [address] [place] [address] 01/25/2024 2:40 PM EDT Office Visit General Internal Medicine [facility] 200 [facility] [place] [address] Henry Tejada MD 200 [facility] [address] 04/15/2024 11:15 AM EDT Imaging Radiology [facility]st [facility] 132 [facility] [place] [address] Health Maintenance Due Date Last Done Comments [...] Advance Directives occurred with: Patient Care Teams Manager State Relationship Specialty Start Date End Date Henry Tejada MD [address] [facility] [place] [address] PCP - General Internal Medicine 07/08/19 documented as of this encounter
--- OUTSIDE RECORDS SUMMARY | 2023-10-21 12:42 | External Medical Summary | Summary of Care ---
Author Name Unknown Organization [facility] Address [address] [place] [address] Phone [phone] Care Team Providers Care Paver Installer Name Role Phone Henry Tejada MD Primary Care Provider + Reason for Visit * Reason Onset Date Comments Advice 10/02/2023 Encounter Details Date Type Department Care Team (Late st Contact Info) Description 10/02/2023 Telephone General Surgery, [facility] [address] [facility] [place] [address] Chandrakant Greenwood MD [address] [place] [address] Advice Allergies Active Allergy Reactions Criticality Noted Date Comments Shellfish Allergy 01/08/2020 ONLY CLAMS documented as of this encounter (statuses as of 10/04/2023) Medications Medication Sig Dispensed Refills Start Date [...] 09/19/2022 Active Additional Information Patient taking differently:2 [place] Each NostrilPRN, Rhinitis, St 09/19/2022, Reported on [...] for hemorrhoids 30 g 1 06/07/2023 Active Gabapentin 300 MG Oral Capsule (Neurontin)Indicati ons:Fibromyalgia [...] BEDTIME NEEDED FOR SLEEP 30 Tablet 0 09/07/2023 Active documented as of this encounter (statuses as of 10/04/2023) Active Problems Problem Noted Date Diagnosed Date Mixed hyperlipidemia 01/13/2022 Anxiety 09/01/2021 Positive antinuclear [...] as of this encounter (statuses as of 10/04/2023) Resolved Problems Problem Noted Date Diagnosed Date [...] as of this encounter (statuses as of 10/04/2023) Immunizations Name Administration Dates Next Due COVID-19 [...] Telephone Encounter - Homa Bah LPN - 10/04/2023 1:22 PM EDT Attempted to call pt, unable to reach her left msg for her to call us back. * Telephone Encounter - Homa Bah LPN - 10/04/2023 1:22 PM EDT Images from the original note were not included. Chandrakant Greenwood MD You5 hours ago (8:04 AM) I usually tell people not to fly within 1 month of surgery. Her flight is outside of the one-month date. She should be fine. She just needs to get up and walk around the cabin a bit during the flight. * Telephone Encounter - Homa Bah LPN - 10/03/2023 4:15 PM EDT Patient is having surgery on 10/31/2023 and is asking if it would be OK to travel by airplane on 12/09/2023. Patient states she was not advised of a recovery time. Pt concerned due to it being a 5 hour flight did discuss the possibility of a blood clot. In which pt did say that she would get up and move around on the plane anyhow. * Telephone Encounter - Odalys Guallpa LPN - 10/02/2023 3:15 PM EDT I did not give this date, nor was I involved in scheduling the case however I have created the casein Laura's absence. * Telephone Encounter - Homa Bah LPN - 10/02/2023 11:[address] greenwood, please see MYG and advise, any issues with flying after surgery? I don't actually see a surgery listed, so I am not sure what surgery this patient is having. * Telephone Encounter - Risa Hood OSA - 10/02/2023 10:16 AM EDT Patient is having surgery on 10/31/2023 and is asking if it would be OK to travel by airplane on 12/09/2023. Patient states she was not advised of a recovery time. documented in this encounter Plan of Treatment Upcoming Encounters Date Type Department Care Team (Late st Contact Info) Description 10/31/2023 2:00 PM EDT Hospital Encounter [facility], Operating Room [facility] [address] [place] [phone] Chandrakant Greenwood MD [address] [place] [address] 10/31/2023 2:00 PM EDT - 10/31/2023 2:58 PM EDT Surgery [facility], Operating Room [facility] [address] [place] [id number] Chandrakant Greenwood MD [address] [place] [address] ANORECTAL EXAM UNDER ANESTHESIA 11/15/2023 11:30 AM EDT Office Visit General Surgery, [facility] [address] [place] [address] Chandrakant Greenwood MD [address] [place] [address] 12/14/2023 1:30 PM EDT Office Visit Ophthalmology, [facility] [address] [place] [address] Gomez Santiago, [place] [address] 01/25/2024 2:40 PM EDT Office Visit General Internal Medicine [facility] 200 [facility] [place] [address] Henry Tejada MD [facility] [address] 04/15/2024 11:15 AM EDT Imaging Radiology [facility] 1st [facility] 132 [facility] [place] [address] Scheduled Procedures Name Priority Associated Diagnoses Date/Ti me ANORECTAL EXAM UNDER ANESTHESIA Hemorrhoids 10/31/2023 2:00 PM EDT Health Maintenance Due Date Last Done Comments [...] Advance Directives occurred with: Patient Care Teams Paver Installer Relationship Specialty Start Date End Date Henry Tejada MD [address] [place] [address] PCP - General Internal Medicine 07/08/19 documented as of this encounter
--- OUTSIDE RECORDS SUMMARY | 2023-10-21 12:42 | External Medical Summary | Summary of Care ---
Author Name Unknown Organization [facility] Address [address] [place] [address] Phone [phone] Care Team Providers Care Government Teacher Name Role Phone Henry Tejada MD Primary Care Provider + Reason for Visit * Reason Onset Date Comments Information 10/17/2023 Encounter Details Date Type Department Care Team (Late st Contact Info) Description 10/17/2023 Telephone Family Practice [facility], [place] [id number] Felicita Alvarado RN Information Allergies Active Allergy Reactions Criticality Noted Date Comments Shellfish Allergy 01/08/2020 ONLY CLAMS documented as of this encounter (statuses as of 10/17/2023) Medications Medication Sig Dispensed Refills Start Date [...] 09/19/2022 Active Additional Information Patient taking differently:2 [place] Each NostrilPRN, Rhinitis, St 09/19/2022, Reported on [...] as of this encounter (statuses as of 10/17/2023) Active Problems Problem Noted Date Diagnosed Date [...] as of this encounter (statuses as of 10/17/2023) Resolved Problems Problem Noted Date Diagnosed Date [...] as of this encounter (statuses as of 10/17/2023) Immunizations Name Administration Dates Next Due COVID-19 [...] encounter Miscellaneous Notes * Telephone Encounter - Felicita Alvarado RN - 10/17/2023 8:25 PM EDT This is a nurse triage encounter. If additional action is needed, do not route to nurse triage. Please route encounter to the applicable clinic pool. Patient calling about surgery performed today at [facility] by general surgery. Patient transferred to [facility]. documented in this encounter Plan of Treatment Upcoming Encounters Date Type Department Care Team (Late st Contact Info) Description 10/19/2023 9:00 AM EDT Scheduled Telephone General Surgery, [facility] [address] [place] [address] [place] Nurse Gen Surg [facility] [address] [place] [address] 11/01/2023 1:00 PM EDT [facility] [address] [place] [address] Chandrakant Greenwood MD 132 [facility] [place] [address] 12/14/2023 1:30 PM EDT Office Visit Ophthalmology, [facility] [address] [place] [address] Gomez Santiago, DO [address] [place] [address] 01/25/2024 2:40 PM EDT Office Visit General Internal Medicine [facility] 200 [facility] [place] [address] Henry Tejada MD 200 [facility] [place] [address] 04/15/2024 11:15 AM EDT Imaging Radiology [address] 132 [facility] [place] [address] Scheduled Procedures Name Priority Associated Diagnoses Date/Ti me ANORECTAL EXAM UNDER ANESTHESIA Hemorrhoids 10/17/2023 9:06 AM EDT Health Maintenance Due Date Last Done [...] Advance Directives occurred with: Patient Care Teams Government Teacher Relationship Specialty Start Date End Date Henry Tejada MD 200 [place] [address] PCP - General Internal Medicine 07/08/19 documented as of this encounter
--- OUTSIDE RECORDS SUMMARY | 2023-10-21 12:42 | External Medical Summary | Summary of Care ---
Author Name Unknown Organization [facility] Address [address] [place] [address] Phone [phone] Care Team Providers Care Trade Sales Assistant Name Role Phone Henry Tejada MD Primary Care Provider + Reason for Visit * Reason Onset Date Comments Medication Refill 10/16/2023 Encounter Details Date Type Department Care Team (Late st Contact Info) Description 10/16/2023 Refill General Internal Medicine [facility] [address] [place] [address] Henry Tejada MD 200 [place] [address] Allergies Active Allergy Reactions Criticality Noted Date Comments Shellfish Allergy 01/08/2020 ONLY CLAMS documented as of this encounter (statuses as of 10/16/2023) Medications Medication Sig Dispensed Refills Start Date [...] 09/19/2022 Active Additional Information Patient taking differently:2 [place] Each NostrilPRN, Rhinitis, St 09/19/2022, Reported on [...] as of this encounter (statuses as of 10/16/2023) Active Problems Problem Noted Date Diagnosed Date [...] as of this encounter (statuses as of 10/16/2023) Resolved Problems Problem Noted Date Diagnosed Date [...] as of this encounter (statuses as of 10/16/2023) Immunizations Name Administration Dates Next Due COVID-19 [...] encounter Miscellaneous Notes * Telephone Encounter - Nicki Henriquez CPhT - 10/16/2023 10:39 AM EDT Pt calling to request Gabapentin 300 MG Oral Capsule (Neurontin) . Informed pt that RX is availableat their pharmacy. Pt verbalized understanding and stated they will check with their pharmacy regarding this medication. Thank you, Nicki Henriquez Campus Director [facility] 10/16/2023, 10:40 AM documented in this encounter Plan of Treatment Upcoming Encounters Date Type Department Care Team (Late st Contact Info) Description 10/17/2023 8:53 AM EDT Hospital Encounter OR [facility], Operating Room [facility] [address] [place] [address] Chandrakant Greenwood MD 132 [place] [address] 10/17/2023 8:53 AM EDT - 10/17/2023 9:51 AM EDT Surgery OR [facility], Operating Room [facility] [address] [place] [place] [address] Chandrakant Greenwood MD 132 [facility] [place] [address] ANORECTAL EXAM UNDER ANESTHESIA 10/19/2023 9:00 AM EDT Scheduled Telephone General Surgery, [facility] 132 [facility] [place] [address] [place], Nurse Gen Surg [facility] [place] [address] 11/01/2023 1:00 PM EDT Office Visit General Surgery, [facility] [address] [place] [address] Chandrakant Greenwood MD 132 [facility] [place] [address] 12/14/2023 1:30 PM EDT Office Visit Ophthalmology, [facility] [address] [place] [address] Gomez Santiago, DO 21 [facility] [place] [address] 01/25/2024 2:40 PM EDT Office Visit General Internal Medicine [facility] 200 [facility] [place] [address] Henry Tejada MD 200 [facility] [place] [address] 04/15/2024 11:15 AM EDT Imaging Radiology [facility] [address] [place] [address] Scheduled Procedures Name Priority Associated Diagnoses Date/Ti me ANORECTAL EXAM UNDER ANESTHESIA Hemorrhoids 10/17/2023 8:53 AM EDT Health Maintenance Due Date Last [...] Advance Directives occurred with: Patient Care Teams Trade Sales Assistant Relationship Specialty Start Date End Date Henry Tejada MD [address] [place] [address] PCP - General Internal Medicine 07/08/19 documented as of this encounter
--- OUTSIDE RECORDS SUMMARY | 2023-10-21 12:42 | External Medical Summary | Summary of Care ---
Author Name Unknown Organization [facility] Address [address] [place] [address] Phone [phone] Care Team Providers Care Ditch Repairer Name Role Phone Henry Tejada MD Primary Care Provider + Reason for Visit * Reason Onset Date Comments Advice 10/02/2023 Encounter Details Date Type Department Care Team (Late st Contact Info) Description 10/02/2023 Telephone General Surgery, [facility] [address] [facility] [place] [address] Chandrakant Greenwood MD [address] [place] [address] Advice Allergies Active Allergy Reactions Criticality Noted [...] 09/19/2022 Active Additional Information Patient taking differently:2 [place] Each NostrilPRN, Rhinitis, St 09/19/2022, Reported on [...] encounter Miscellaneous Notes * Telephone Encounter - Rachael Collazo OSA - 10/04/2023 2:09 PM EDT Patient has been notified of the message. Patient has no further questions. * Telephone Encounter - Homa Bah LPN [...] 10/31/2023 2:00 PM EDT Hospital Encounter OR [facility], Operating Room OSS [address] [place] [phone] Chandrakant Greenwood MD [address] [place] [address] 10/31/2023 2:00 PM EDT - 10/31/2023 2:58 PM EDT Surgery OR [facility], Operating Room [facility] [address] [place] [address] Chandrakant Greenwood MD [address] [place] [address] ANORECTAL EXAM UNDER ANESTHESIA 11/15/2023 11:30 AM EDT Office Visit General Surgery, [facility] [address] [place] [address] Chandrakant Greewnood MD [address] [place] [address] 12/14/2023 1:30 PM EDT Office Visit Ophthalmology, [facility] [address] [place] [address] Gomez Santiago DO 21 [facility] [place] [address] 01/25/2024 2:40 PM EDT Office Visit General Internal Medicine [facility] [address] [place] [address] Henry Tejada MD [address] [place] [address] 04/15/2024 11:15 AM EDT Imaging Radiology [address] [place] [address] Scheduled Procedures Name Priority Associated Diagnoses Date/Ti [...] Advance Directives occurred with: Patient Care Teams Ditch Repairer Relationship Specialty Start Date End Date Henry Tejada MD 200 [place] [address] PCP - General Internal Medicine 07/08/19 documented as of this encounter
--- OUTSIDE RECORDS SUMMARY | 2023-10-21 12:42 | External Medical Summary | Summary of Care ---
Author Name Unknown Organization [facility] Address [address] [place] [address] Phone [phone] Care Team Providers Care Nursing Student Name Role Phone Henry Tejada MD Primary Care Provider + Reason for Visit * Reason Onset Date Comments Surgery 10/09/2023 Encounter Details Date Type Department Care Team (Late st Contact Info) Description 10/09/2023 Telephone General Surgery, [facility] [address] [place] [address] Services, Scheduling [address] [place] [address] Surgery Allergies Active Allergy Reactions Criticality Noted Date Comments Shellfish Allergy 01/08/2020 ONLY CLAMS documented as of this encounter (statuses as of 10/09/2023) Medications Medication Sig Dispensed Refills Start Date [...] 09/19/2022 Active Additional Information Patient taking differently:2 [place] Each NostrilPRN, Rhinitis, St 09/19/2022, Reported on [...] as of this encounter (statuses as of 10/09/2023) Active Problems Problem Noted Date Diagnosed Date [...] as of this encounter (statuses as of 10/09/2023) Resolved Problems Problem Noted Date Diagnosed Date [...] as of this encounter (statuses as of 10/09/2023) Immunizations Name Administration Dates Next Due COVID-19 [...] encounter Miscellaneous Notes * Telephone Encounter - Laura Roger OSA - 10/09/2023 10:35 AM EDT Moved to 10/17/23. * Telephone Encounter - Evie Lozano OSA - 10/09/2023 8:48 AM EDT Patient called in questioning if her surgery could be moved up to 10/16 please advise documented in this encounter Plan of Treatment Upcoming Encounters Date Type Department Care Team (Late st Contact Info) Description 10/17/2023 7:45 AM EDT Hospital Encounter OR [facility], Operating Room OSS [address] [place] [address] Chandrakant Greenwood MD 132 [place] [address] 10/17/2023 7:45 AM EDT - 10/17/2023 8:43 AM EDT Surgery OR [facility], Operating Room [facility]SS [address] [place] [address] Chandrakant Greenwood MD [address] [place] [address] ANORECTAL EXAM UNDER ANESTHESIA 10/19/2023 9:00 AM EDT Scheduled Telephone General Surgery, [facility] 132 [facility] [place] [address] [place], Nurse Gen Surg [facility] [place] [address] 11/01/2023 1:00 PM EDT Office Visit General Surgery, [facility] [address] [place] [address] Chandrakant Greenwood MD 132 [facility] [place] [address] 12/14/2023 1:30 PM EDT Office Visit Ophthalmology, [facility] 132 [facility] [place] [address] Gomez Santiago, DO 21 [facility] [address] 01/25/2024 2:40 PM EDT Office Visit General Internal Medicine [facility] 200 [facility] [place] [address] Henry Tejada MD 200 [facility] [place] [address] 04/15/2024 11:15 AM EDT Imaging Radiology [facility] [place] [address] Scheduled Procedures Name Priority Associated Diagnoses Date/Ti me ANORECTAL EXAM UNDER ANESTHESIA Hemorrhoids 10/17/2023 7:45 AM EDT Health Maintenance Due Date Last [...] Advance Directives occurred with: Patient Care Teams Nursing Student Relationship Specialty Start Date End Date Henry Tejada MD 200 [facility] [place] [address] PCP - General Internal Medicine 07/08/19 documented as of this encounter
--- OUTSIDE RECORDS SUMMARY | 2023-10-21 12:42 | External Medical Summary | Summary of Care ---
Author Name Unknown Organization [facility] Address [address] [place] [address] Phone [phone] Care Team Providers Care Editorial Writer Name Role Phone Henry Tejada MD Primary Care Provider + Reason for Visit * Reason Comments eRx-Medication Refill Encounter Details Date Type Department Care Team (Late st Contact Info) Description 10/17/2023 Refill General Internal Medicine [facility] 200 [facility] [place] [address] Henry Tejada MD 200 [place] [address] Allergies Active Allergy Reactions Criticality Noted Date [...] 09/19/2022 Active Additional Information Patient taking differently:2 [place] Each NostrilPRN, Rhinitis, St 09/19/2022, Reported on [...] encounter Miscellaneous Notes * Telephone Encounter - Stuart Gusman RPh - 10/19/2023 7:21 AM EDTRefused Prescriptions: Disp Refills DULoxetine HCl 60 MG Oral Capsule Delayed *30 Cap*0 Sig: Take 1capsule by mouth once dailyRefused By: STUART GUSMAN LReason for Refusal: Too soonReason for Refusal Comment: 6 months sent 08/21/23 documented in this encounter Plan of Treatment Upcoming Encounters Date Type Department Care Team (Late st Contact Info) Description 10/19/2023 9:00 AM EDT Scheduled Telephone General Surgery, [facility] 132 [facility] [place] [address] [facility], Nurse Gen Surg [facility] 132 [facility] [place] [address] 11/01/2023 1:00 PM EDT Office Visit General Surgery, [facility] 132 [facility] [place] [address] Chandrakant Greenwood MD 132 [facility] [place] [address] 12/14/2023 1:30 PM EDT Office Visit Ophthalmology, [facility] 132 [facility] [place] [address] Gomez Santiago DO 21 [facility] [place] [address] 01/25/2024 2:40 PM EDT Office Visit General Internal Medicine [facility] 200 [facility] [place] [address] Henry Tejada MD 200 [facility], [place] [address] 04/15/2024 11:15 AM EDT Imaging Radiology [facility] 1st [facility] 132 [facility] [place] [address] Health Maintenance Due Date Last Done Comments [...] Advance Directives occurred with: Patient Care Teams Editorial Writer Relationship Specialty Start Date End Date Henry Tejada MD [address] [place], [place] [address] PCP - General Internal Medicine 07/08/19 documented as of this encounter
--- OUTSIDE RECORDS SUMMARY | 2023-10-21 12:42 | External Medical Summary | Summary of Care ---
Author Name Unknown Organization [facility] Address [address] [place] [address] Phone [phone] Care Team Providers Care Cement Contractor Name Role Phone Henry Tejada MD Primary Care Provider + Reason for Visit * Reason Onset Date Comments Advice 10/02/2023 Encounter Details Date Type Department Care Team (Late st Contact Info) Description 10/02/2023 Telephone General Surgery, [facility] [address] [facility] [place] [address] Chandrakant Greenwood MD [address] [place] [address] Advice Allergies Active Allergy Reactions Criticality Noted [...] 09/19/2022 Active Additional Information Patient taking differently:2 [place] Each NostrilPRN, Rhinitis, St 09/19/2022, Reported on [...] [facility], Operating Room [facility] [address] [place] [phone] Chandrakant Greenwood MD 132 [place] [address] 10/31/2023 2:00 PM EDT - 10/31/2023 2:58 PM EDT Surgery OR [facility], Operating Room [facility] [address] [place] [phone] Chandrakant Greenwood MD [address] [place] [address] ANORECTAL EXAM UNDER ANESTHESIA 11/15/2023 11:30 AM EDT Office Visit General Surgery, [facility] [address] [place] [address] Chandrakant Greenwood MD [address] [place] [address] 12/14/2023 1:30 PM EDT Office Visit Ophthalmology, [facility] [address] [place] [address] Gomez Santiago, [place] [address] 01/25/2024 2:40 PM EDT Office Visit General Internal Medicine [facility] 200 [facility] [place] [address] Henry Tejada MD 200 [facility] [address] 04/15/2024 11:15 AM EDT Imaging Radiology [facility] 1st [facility] 132 [facility] [place] [address] Scheduled Procedures Name Priority Associated Diagnoses Date/Ti [...] Advance Directives occurred with: Patient Care Teams Cement Contractor Relationship Specialty Start Date End Date Henry Tejada MD 200 [place] [address] PCP - General Internal Medicine 07/08/19 documented as of this encounter
--- OUTSIDE RECORDS SUMMARY | 2023-10-21 12:43 | External Medical Summary ---
Author Name Unknown Address Unknown Organization [id number]:[facility] [address] - [address] [place] [address] Laboratory Report Ordering Provider Test Date Status MIKHAIL EGAN 09/27/2023 09:57:09 Final Observation Date Value Abnormality Reference (Units ) Status WBC, Total 09/27/2023 09:57:09 5.06 4.00-10.8 0 (K/uL) Final RBC 09/27/2023 09:57:09 4.74 3.85-5.15 (M/uL) Final Hemoglobin 09/27/2023 09:57:09 14.3 12.0-15.3 (g/dL) Final HCT 09/27/2023 09:57:09 42.9 36.0-45.2 (%) Final MCV 09/27/2023 09:57:09 90.5 81.5-97.5 (fL) Final MCH 09/27/2023 09:57:09 30.2 27.0-34.0 (pg) Final MCHC 09/27/2023 09:57:09 33.3 32.0-36.0 (g/dL) Final RDW 09/27/2023 09:57:09 13.5 11.5-15.5 (%) Final Platelets 09/27/2023 09:57:09 213 140-400 (K /uL) Final MPV 09/27/2023 09:57:09 11.1 6.6-11.1 ( fL) Final Performing Location [facility] 57[address] 0 - [address] [address]
--- OUTSIDE RECORDS SUMMARY | 2023-10-21 12:43 | External Medical Summary | Summary of Care ---
Author Name Unknown Organization [facility] Address [address] [place] [address] Phone [phone] Care Team Providers Care Real Time Operator Name Role Phone Henry Tejada MD Primary Care Provider + Reason for Visit * Reason Onset Date Comments Advice 10/02/2023 Encounter Details Date Type Department Care Team (Late st Contact Info) Description 10/02/2023 Telephone General Surgery, [facility] [address] [facility] [place] [address] Chandrakant Greenwood MD [address] [place] [address] Advice Allergies Active Allergy Reactions Criticality Noted Date Comments Shellfish Allergy 01/08/2020 ONLY CLAMS documented as of this encounter (statuses as of 10/03/2023) Medications Medication Sig Dispensed Refills Start Date [...] 09/19/2022 Active Additional Information Patient taking differently:2 [place] Each NostrilPRN, Rhinitis, St 09/19/2022, Reported on [...] as of this encounter (statuses as of 10/03/2023) Active Problems Problem Noted Date Diagnosed Date [...] as of this encounter (statuses as of 10/03/2023) Resolved Problems Problem Noted Date Diagnosed Date [...] as of this encounter (statuses as of 10/03/2023) Immunizations Name Administration Dates Next Due COVID-19 [...] to it being a 5 hour flight * Telephone Encounter - Odalys Guallpa LPN [...] Encounter OR [facility], Operating Room [facility] [address] [place] [phone] Chandrakant Greenwood MD [address] [place] [address] 10/31/2023 2:00 PM EDT - 10/31/2023 2:58 PM EDT Surgery OR [facility], Operating Room [facility]SS [address] [place] [phone] Chandrakant Greenwood MD [address] [place] [address] ANORECTAL EXAM UNDER ANESTHESIA 11/15/2023 11:30 AM EDT Office Visit General Surgery, [facility] [address] [place] [address] Chandrakant Greenwood MD [address] [place] [address] 12/14/2023 1:30 PM EDT Office Visit Ophthalmology, [facility] [address] [place] [address] Gomez Santiago, DO 21 [place] [address] 01/25/2024 2:40 PM EDT Office Visit General Internal Medicine [facility] 200 [facility] [place] [address] Henry Tejada MD 200 [facility] COUNTS INCLUDE [address] [facility] [place] [address] 04/15/2024 11:15 AM EDT Imaging Radiology [address] [place] [address] Scheduled Procedures Name Priority Associated Diagnoses Date/Ti me ANORECTAL EXAM UNDER ANESTHESIA Hemorrhoids 10/31/2023 2:00 PM EDT Health Maintenance Due Date Last Done Comments COVID-19 Vaccine ( season) 2023 02/22/2021, 08/11/2020, 07/11/2020 Depression Screening 02/08/2024 02/07/2023 HbA1c 02/09/2024 02/08/2023, 03/11, 11/11/2021, Additional history exists TSH 02/09/2024 02/08/2023, 03/11, 07/13/2021, Additional history exists DXA Scan 10/11/2025 10/11/2021, 0410/2021, 09/03/2018 DTaP,Tdap,and Td Vaccines (3 - Td [...] Advance Directives occurred with: Patient Care Teams Real Time Operator Relationship Specialty Start Date End Date Henry Tejada MD [address] [place] [address] PCP - General Internal Medicine 07/08/19 documented as of this encounter
--- OUTSIDE RECORDS SUMMARY | 2023-10-21 12:43 | External Medical Summary | Summary of Care ---
Author Name Unknown Organization [facility] Address [address] [place] [address] Phone [phone] Care Team Providers Care Web Marketing Strategist Name Role Phone Henry Tejada MD Primary Care Provider + Reason for Visit * Reason Onset Date Comments Advice 10/02/2023 Encounter Details Date Type Department Care Team (Late st Contact Info) Description 10/02/2023 Telephone General Surgery, [facility] [address] [facility] [place] [address] Chandrakant Greenwood MD [address] [place] [address] Advice Allergies Active Allergy Reactions Criticality Noted [...] 09/19/2022 Active Additional Information Patient taking differently:2 [place] Each NostrilPRN, Rhinitis, St 09/19/2022, Reported on [...] the case however I have created the antonio Sanchez's absence. * Telephone Encounter - Homa Bah [...] 10/31/2023 2:00 PM EDT Hospital Encounter OR [facility], Operating Room [facility] [address] [place] [address] Chandrakant Greenwood MD [address] [place] [address] 10/31/2023 2:00 PM EDT - 10/31/2023 2:58 PM EDT Surgery OR [facility], Operating Room [facility] [address] [place] [address] Chandrakant Greenwood MD [address] [place] [address] ANORECTAL EXAM UNDER ANESTHESIA 11/15/2023 11:30 AM EDT Office Visit General Surgery, [facility] [address] [place] [address] Chandrakant Greenwood MD [address] [place] [address] 12/14/2023 1:30 PM EDT Office Visit Ophthalmology, [facility] [address] [place] [address] Gomez Santiago DO 21 [place] [address] 01/25/2024 2:40 PM EDT Office Visit General Internal Medicine [facility] [place] 200 [facility] [place] [address] Henry Tejada MD 200 [facility] [place] [address] 04/15/2024 11:15 AM EDT Imaging Radiology [facility] 1st [facility] 132 [facility] [place] [address] Scheduled Procedures Name Priority Associated Diagnoses Date/Ti [...] Advance Directives occurred with: Patient Care Teams Web Marketing Strategist Relationship Specialty Start Date End Date Henry Tejada MD 200 [place], [place] [id number] PCP - General Internal Medicine 07/08/19 documented as of this encounter
--- OUTSIDE RECORDS SUMMARY | 2023-10-21 12:43 | External Medical Summary ---
Author Name Unknown Address Unknown Organization [id number]:[facility] [address] [facility] [place] [address] Laboratory Report Ordering Provider Test Date Status MIKHAIL EGAN 09/27/2023 09:57:09 Final Observation Date Value Abnormality Reference (Units ) Status BUN 09/27/2023 09:57:09 21 Above high normal 6-20 (mg/dL) Final Creatinine 09/27/2023 09:57:09 0.9 0.5-1.0 (mg/dL) Final Glomerular filtration rate/1.73 sq M.predicted [Volume Rate/Area] in Serum, Plasma or Blood by Creatinine-based formula (CKD-EPI) 09/27/2023 09:57:09 68 >=60 (mL/min) Final eGFR is calculated based on the CKD-EPI 2020 equation Sodium 09/27/2023 09:57:09 140 135-146 (m mol/L) Final Potassium 09/27/2023 09:57:09 5.4 Above high normal 3. 5-5.1 (mmol/L) Final Cl 09/27/2023 09:57:09 105 98-107 (mm ol/L) Final CO2 09/27/2023 09:57:09 27 22-32 (mmo l/L) Final Anion gap 09/27/2023 09:57:09 8 7-15 (mmol /L) Final Glucose 09/27/2023 09:57:09 93 70-120 (mg /dL) Final Albumin 09/27/2023 09:57:09 4.6 3.8-5.0 (g /dL) Final AST (Aspartate aminotransferase) 09/27/2023 09:57:09 27 10-35 (U/L) Fin al Alk Phos 09/27/2023 09:57:09 74 35-130 (U/ L) Final Bilirubin, Total 09/27/2023 09:57:09 0.7 <=1 .2 (mg/dL) Final Calcium 09/27/2023 09:57:09 9.9 8.4-10.2 ( mg/dL) Final Protein 09/27/2023 09:57:09 6.5 6.0-8.3 (g /dL) Final ALT (Alanine aminotransferase) 09/27/2023 09:57:09 36 Above high normal 10-35 (U/L) Final Performing Location [facility] [place] [address]
--- OUTSIDE RECORDS SUMMARY | 2023-10-21 12:43 | External Medical Summary | Summary of Care ---
Author Name Unknown Organization [facility] Address [address] [place] [address] Phone [phone] Care Team Providers Care Track Liner Operator Name Role Phone Henry Tejada MD Primary Care Provider + Reason for Visit * Reason Comments eRx-Medication Refill Encounter Details Date Type Department Care Team (Late st Contact Info) Description 09/30/2023 Refill General Internal Medicine [facility] 200 [facility] [place] [address] Henry Tejada MD [address] [place] [address] Allergies Active Allergy Reactions Criticality Noted Date Comments Shellfish Allergy 01/08/2020 ONLY CLAMS documented as of this encounter (statuses as of 10/02/2023) Medications Medication Sig Dispensed Refills Start Date [...] 09/19/2022 Active Additional Information Patient taking differently:2 [place] Each NostrilPRN, Rhinitis, St 09/19/2022, Reported on [...] as of this encounter (statuses as of 10/02/2023) Active Problems Problem Noted Date Diagnosed Date [...] as of this encounter (statuses as of 10/02/2023) Resolved Problems Problem Noted Date Diagnosed Date [...] as of this encounter (statuses as of 10/02/2023) Immunizations Name Administration Dates Next Due COVID-19 [...] encounter Miscellaneous Notes * Telephone Encounter - Minoo Rutherford RPh - 10/02/2023 10:56 AM EDTRefused Prescriptions: Disp Refills DULoxetine HCl 60 MG Oral Capsule Delayed *30 Cap*0 Sig: Take 1capsule by mouth once dailyRefused By: MINOO RUTHERFORD for Refusal: Too soon documented in this encounter Plan of Treatment Upcoming Encounters Date Type Department Care Team (Late st Contact Info) Description 11/15/2023 11:30 AM EDT Office Visit General Surgery, [facility] [address] [place] [address] Chandrakant Gerenwood MD [address] [place] [address] 12/14/2023 1:30 PM EDT Office Visit Ophthalmology, [facility] 132 [facility] [place] [address] Gomez Santiago DO [address] [place] [address] 01/25/2024 2:40 PM EDT Office Visit General Internal Medicine [facility] 200 [facility] [place] [address] Henry Tejada MD 200 [facility] [place] [address] 04/15/2024 11:15 AM EDT Imaging Radiology [facility] 132 [facility] [place] [address] Health Maintenance Due Date Last Done Comments [...] Advance Directives occurred with: Patient Care Teams Track Liner Operator Relationship Specialty Start Date End Date Henry Tejada MD [address] [place] [address] PCP - General Internal Medicine 07/08/19 documented as of this encounter
--- OUTSIDE RECORDS SUMMARY | 2023-10-21 12:43 | External Medical Summary | Summary of Care ---
Author Name Unknown Organization [facility] Address [address] [place] [address] Phone [phone] Care Team Providers Care Air Chipper Name Role Phone Henry Tejada MD Primary Care Provider + Reason for Visit * Reason Onset Date Comments Advice 10/02/2023 Encounter Details Date Type Department Care Team (Late st Contact Info) Description 10/02/2023 Telephone General Surgery, [facility] [address] [facility] [place] [address] Chandrakant Greenwood MD [address] [place] [address] Advice Allergies Active Allergy Reactions Criticality Noted [...] 09/19/2022 Active Additional Information Patient taking differently:2 [place] Each NostrilPRN, Rhinitis, St 09/19/2022, Reported on [...] 10/31/2023 2:00 PM EDT Hospital Encounter OR [facility], Operating Room [facility] [address] [place] [address] Chandrakant Greenwood MD [address] [place] [address] 10/31/2023 2:00 PM EDT - 10/31/2023 2:58 PM EDT Surgery OR [facility], Operating Room [facility] [address] [place] [address] Chandrakant Greenwood MD [address] [place] [address] ANORECTAL EXAM UNDER ANESTHESIA 11/15/2023 11:30 AM EDT Office Visit General Surgery, [facility] [address] [place] [address] Chandrakant Greenwood MD [address] [place] [address] 12/14/2023 1:30 PM EDT Office Visit Ophthalmology, [facility] [address] [place] [address] Gomez Santiago DO [address] [place] [address] 01/25/2024 2:40 PM EDT Office Visit General Internal Medicine [facility] 200 [facility] [place] [address] Henry Tejada MD 200 [facility] [place] [address] 04/15/2024 11:15 AM EDT Imaging Radiology [address] 132 [facility] [place] [address] Scheduled Procedures Name Priority Associated Diagnoses Date/Ti [...] Advance Directives occurred with: Patient Care Teams Air Chipper Relationship Specialty Start Date End Date Henry Tejada MD [address] [place] [address] PCP - General Internal Medicine 07/08/19 documented as of this encounter
--- OUTSIDE RECORDS SUMMARY | 2023-10-21 12:43 | External Medical Summary | Summary of Care ---
Author Name Unknown Organization [facility] Address [address] [place] [address] Phone [phone] Care Team Providers Care Financial Services Education Consultant Name Role Phone Henry Tejada MD Primary Care Provider + Reason for Visit * Reason Onset Date Comments Advice 10/02/2023 Encounter Details Date Type Department Care Team (Late st Contact Info) Description 10/02/2023 Telephone General Surgery, [facility] [address] [facility] [place] [address] Chandrakant Greenwood MD [address] [place] [address] Advice Allergies Active Allergy Reactions Criticality Noted [...] 09/19/2022 Active Additional Information Patient taking differently:2 [place] Each NostrilPRN, Rhinitis, St 09/19/2022, Reported on [...] Team (Late st Contact Info) Description 10/31/2023 Hospital Encounter OR [facility], Operating Room [facility] [address] [place] [address] Chandrakant Greenwood MD [address] [place] [address] 11/15/2023 11:30 AM EDT Office Visit General Surgery, [facility] [address] [place] [address] Chandrakant Greenwood MD [address] [place] [address] 12/14/2023 1:30 PM EDT Office Visit Ophthalmology, [facility] [address] [place] [address] Gomez Santiago DO 21 [facility] [place] [address] 01/25/2024 2:40 PM EDT Office Visit General Internal Medicine [facility] 200 [facility] [place] [place] [address] Henry Tejada MD 200 [facility] [place] [address] 04/15/2024 11:15 AM EDT Imaging Radiology [facility] 1st [facility] [address] [place] [address] Scheduled Procedures Name Priority Associated Diagnoses Date/Ti me ANORECTAL EXAM UNDER ANESTHESIA Hemorrhoids Health Maintenance Due Date Last Done Comments [...] Advance Directives occurred with: Patient Care Teams Financial Services Education Consultant Relationship Specialty Start Date End Date Henry Tejada MD 200 [facility] [place] [address] PCP - General Internal Medicine 07/08/19 documented as of this encounter
--- OUTSIDE RECORDS SUMMARY | 2023-10-21 12:43 | External Medical Summary | Summary of Care ---
Author Name Unknown Organization [facility] Address [address] [place] [address] Phone [phone] Care Team Providers Care Certified Scrub Tech Name Role Phone Henry Gipson MD Primary Care Provider + Reason for Visit * Reason Onset Date Comments Medication Refill 09/04/2023 Encounter Details Date Type Department Care Team (Late st Contact Info) Description 09/04/20[address] Internal Medicine [facility] [address] [place] [address] Henry Gipson MD 200 [facility] [place] [address] Medication Refill Allergies Active Allergy Reactions Criticality Noted Date Comments Shellfish Allergy 01/08/2020 ONLY CLAMS documented as of this encounter (statuses as of 09/08/2023) Medications Medication Sig Dispensed Refills Start Date [...] 3 Active Additional Information Patient taking differently:2 [place] Each NostrilPRN, Rhinitis, St 09/19/2022, Reported on [...] for hemorrhoids 30 g 1 3 Active Gabapentin 300 MG Oral Capsule (Neurontin)Indicati [...] FOR SLEEP 30 Tablet 0 4 Active clonazePAM 1 MG Oral Tablet (KlonoPIN)Indicatio ns:Anxiety TAKE 1 TABLET BY MOUTH ONCE DAILY AT BEDTIME NEEDED FOR SLEEP 30 Tablet 0 4 09/04/19 24 Discontinu ed(Refill) documented as of this encounter (statuses as of 09/08/2023) Active Problems Problem Noted Date Diagnosed Date [...] as of this encounter (statuses as of 09/08/2023) Resolved Problems Problem Noted Date Diagnosed Date [...] as of this encounter (statuses as of 09/08/2023) Immunizations Name Administration Dates Next Due COVID-19 [...] encounter Miscellaneous Notes * Telephone Encounter - Shirin Yu LPN - 09/08/2023 11:39 AM EST Spoke with pharmacy. Authorized early fill as patient is leaving for vacation today. Patient aware. * Telephone Encounter - Radha Hinton mathematician - 09/08/2023 11:02 AM EST Pt said pharmacy will not fill today unless Dr or office calls with permission Pt is going away andneeds this morning in order to catch a flight out. Please call antoinette Thank you for your assistance Radha Hinton Home Agent II [facility] ([facility]) (Formerly Telepharmacy) 09/08/2023,11:02 AM * Telephone Encounter - Henry Gipson MD - 09/07/2023 9:04 AM ESTSigned Prescriptions: Disp Refills clonazePAM 1 MG Oral Tablet (KlonoPIN) 30 Tab*0 Sig: TAKE 1 TABLET BY MOUTH ONCE DAILY AT BEDTIME NEEDED FOR SLEEP Authorizing Provider: HENRY GIPSON * Telephone Encounter - Henry Gipson MD - 09/06/2023 6:20 PM EST Pending Prescriptions: Disp Refills clonazePAM 1 MG Oral Tablet (KlonoPIN) 30 Tab*0 Sig: TAKE 1 TABLET BY MOUTH ONCE DAILY AT BEDTIME NEEDED FOR SLEEP * Telephone Encounter - Susan Mccracken mathematician - 09/06/2023 3:53 PM EST Pt returning call received. Call very static, cutting in/out. Pt advised that Rx will be sent to pharmacy tomorrow . Pt is aware, and understands. Thank you, Susan Mccracken Wood Gang Sawyer II Certified [facility] (formerly Telepharmacy) 09/06/2023,3:54 PM * Telephone Encounter - Shirin Yu LPN - 09/06/2023 2:47 PM EST Left message for patient to call back regarding message below. * Telephone Encounter - Henry Gipson MD - 09/06/2023 11:02 AM EST States she is leaving Monday so I will send tomorrow! It is 2nd early request, we need to be very careful with these controlled substances and early requests! * Telephone Encounter - Radha Hinton, mathematician - 09/06/2023 10:59 AM EST Pt needs this today as she is going away on a cruise she has to pick this up today Please advise Thank you for your assistance Radha Hinton Home Agent II [facility] ([facility]) (Formerly Telepharmacy) 09/06/2023,11:00 AM * Telephone Encounter - Henry Gipson MD - 09/05/2023 3:55 PM EST Pending Prescriptions: Disp Refills clonazePAM 1 MG Oral Tablet (KlonoPIN) 30 Tab*0 Sig: TAKE 1 TABLET BY MOUTH ONCE DAILY AT BEDTIME NEEDED FOR SLEEP * Telephone Encounter - Rosario Roman mathematician - 09/05/2023 3:19 PM EST Pt calling to check on status of Clonazepam. Caller can be reached at . Thank you, Rosario Roman [employer] Sawyer I [facility] ([facility]) (Formerly Telepharmacy) 09/05/2023,3:19 PM * Telephone Encounter - Mere Gusman [facility] - 09/04/2023 12:14 PM ESTPending Prescriptions: Disp Refills clonazePAM 1 MG Oral Tablet (KlonoPIN) 30 Tab*0 Sig: TAKE 1 TABLET BY MOUTH ONCE DAILY AT BEDTIME NEEDED FOR SLEEP * Telephone Encounter - Mere Gusman [facility] - 09/04/2023 12:13 PM EST I have reviewed the patients controlled substance dispensing history in the Prescription Drug Monitoring Program in compliance with the [facility] regulations before prescribing a controlled substance. PDMP checked on 09/04/2023. Pending Prescriptions: Disp Refills clonazePAM 1 MG Oral Tablet (KlonoPIN) 30 Tab*0 Sig: TAKE 1 TABLET BY MOUTH ONCE DAILY AT BEDTIME NEEDED FOR SLEEP Last Visit: 04/28/2023 (in office), 06/23/2022 (telemedicine) Next Visit: 01/25/2024 Date medication was last filled: 08/13/23 Date medication is due for refill: 09/11/23 Pharmacy: [facility] [address] [place] [address] Is this request for a controlled substance? Yes and Urine Drug Screen Not completed Toxicology results: Results for orders placed or performed in visit on 03/29/22 PAIN MANAGEMENT DRUG PANEL, URINE W/ INTERPRETATION Result Value Compliance Interpretation Based on the medication information provided: The presence of 7-aminoclonazepam is CONSISTENT with clonazepam use. Amphetamines Screen, U Negative Benzodiazepines Screen, U Refer to confirmation results (A) Cannabinoids Screen, U Negative Cocaine Metabolite Screen, U Negative Fentanyl Screen, U Negative Hydrocodone Screen, U Negative Methadone Metabolite Screen, U Negative Morphine/Codeine Screen, U Negative Oxycodone Screen, U Negative Valid Interpretation Normal Creatinine, U 216 Narrative Cutoff Concentrations: Drug Level Amphetamines 500 ng/mL Benzodiazepines 100 ng/mL Cannabinoids 50 ng/mL Cocaine Metabolite 150 ng/mL Fentanyl 1 ng/mL Hydrocodone / Hydromorphone 300 ng/mL Methadone Metabolite 100 ng/mL Morphine / Codeine 300 ng/mL Oxycodone / Oxymorphone 100 ng/mL Screening results are presumptive and can only be used for medical purposes. Confirmatory testing is available upon request. Please approve if appropriate. Thank You, Mere uGsman [facility] Clinical Pharmacist [facility] ([facility]) (formerly Telepharmacy) [phone] 09/04/2023, 12:13 PM * Telephone Encounter - Rosario Roman PHARM Tech - 09/04/2023 11:48 AM EST Pt requesting HIGH PRIORITY due to Pt leaving on cruise on Monday. Pt would like to be able to pickup medication at pharmacy by . Pt understands this is an early request. Did you pend patient's preferred pharmacy and medication before forwarding?yes [facility]: [facility] [address] [place] [address] [place] [address] Pending Prescriptions: Disp Refills clonazePAM 1 MG Oral Tablet (KlonoPIN) 30 Tab*0 Sig: TAKE 1 TABLET BY MOUTH ONCE DAILY AT BEDTIME NEEDED FOR SLEEP Last Visit: 04/28/2023 (in office), 06/23/2022 (telemedicine) Next Visit: 01/25/2024 If no future appointments scheduled, and last appointment is greater than a year ago, please schedule patient for a follow-up appointment Last date the medication was ordered: 08/13/2023 Is this request for a controlled substance?Yes, What was the last refill date 08/13/2023 w/ quantity 30 and dosage 1 mg and Urine Drug Screen was completed Urine Drug Screen: Results for orders placed or performed in visit on 03/29/22 PAIN MANAGEMENT DRUG PANEL, URINE W/ INTERPRETATION Result Value Compliance Interpretation Based on the medication information provided: The presence of 7-aminoclonazepam is CONSISTENT with clonazepam use. Amphetamines Screen, U Negative Benzodiazepines Screen, U Refer to confirmation results (A) Cannabinoids Screen, U Negative Cocaine Metabolite Screen, U Negative Fentanyl Screen, U Negative Hydrocodone Screen, U Negative Methadone Metabolite Screen, U Negative Morphine/Codeine Screen, U Negative Oxycodone Screen, U Negative Valid Interpretation Normal Creatinine, U 216 Narrative Cutoff Concentrations: Drug Level Amphetamines 500 ng/mL Benzodiazepines 100 ng/mL Cannabinoids 50 ng/mL Cocaine Metabolite 150 ng/mL Fentanyl 1 ng/mL Hydrocodone / Hydromorphone 300 ng/mL Methadone Metabolite 100 ng/mL Morphine / Codeine 300 ng/mL Oxycodone / Oxymorphone 100 ng/mL Screening results are presumptive and can only be used for medical purposes. Confirmatory testing is available upon request. Patient Phone Numbers Labs: Lab Results Component Value Date/Time CREAT 0.9 02/08/2023 09:50 AM CREAT 1.1 (H) 08/06/2020 12:19 PM POTASSIUM 4.7 02/08/2023 09:50 AM POTASSIUM 5.3 (H) 08/06/2020 12:19 PM TSH 3.66 02/08/2023 09:50 AM TSH 2.58 07/08/2020 11:10 AM LDLCALC 100 02/08/2023 09:50 AM LDLCALC 95 07/08/2020 11:10 AM LDLDIRECT NOT APPLICABLE 07/08/2020 11:10 AM ALT 38 (H) 05/24/2023 02:13 PM ALT 29 08/06/2020 12:19 PM HGBA1C 5.8 (H) 02/08/2023 09:50 AM HGBA1C 6.1 (H) 07/08/2020 11:10 AM documented in this encounter Plan of Treatment Upcoming Encounters Date Type Department Care Team (Late st Contact Info) Description 12/14/2023 1:30 PM EDT Office Visit Ophthalmology, [facility] 132 [facility] [place] [address] Gomez Santiago, DO 21 [facility] [place] [address] 01/25/2024 2:40 PM EDT Office Visit General Internal Medicine [facility] 200 [facility] [place] [address] Henry Gipson MD 200 [facility] [place] [address] 04/15/2024 11:15 AM EDT Imaging Radiology [address] [place] [address] Health Maintenance Due Date Last Done Comments [...] as of this encounter Visit Diagnoses Diagnosis Anxiety Anxiety state, unspecified documented in this encounter Additional Health Concerns [...] Advance Directives occurred with: Patient Care Teams Certified Scrub Tech Relationship Specialty Start Date End Date Henry Gipson MD 200 [facility] [place], [place] [address] PCP - General Internal Medicine 07/08/19 documented as of this encounter
--- OUTSIDE RECORDS SUMMARY | 2023-10-21 12:43 | External Medical Summary | Summary of Care ---
Author Name Unknown Organization [facility] Address [address] [place] [address] Phone [phone] Care Team Providers Care Portable Pinch Riveter Name Role Phone Henry Tejada MD Primary Care Provider + Reason for Visit * Reason Onset Date Comments Advice 10/02/2023 Encounter Details Date Type Department Care Team (Late st Contact Info) Description 10/02/2023 Telephone General Surgery, [facility] [address] [facility] [place] [address] Chandrakant Greenwood MD [address] [place] [address] Advice Allergies Active Allergy Reactions Criticality Noted [...] 09/19/2022 Active Additional Information Patient taking differently:2 [place] Each NostrilPRN, Rhinitis, St 09/19/2022, Reported on [...] 10/31/2023 2:00 PM EDT Hospital Encounter OR [facility], Operating Room [facility] [address] [place] [place] [address] Chandrakant Greenwood MD [address] [place] [address] 10/31/2023 2:00 PM EDT - 10/31/2023 2:58 PM EDT Surgery OR [facility], Operating Room [facility] [address] [place] [address] Chandrakant Greenwood MD [address] [place] [address] ANORECTAL EXAM UNDER ANESTHESIA 11/15/2023 11:30 AM EDT Office Visit General Surgery, [facility] [address] [place] [address] Chandrakant Greenwood MD [address] [place] [address] 12/14/2023 1:30 PM EDT Office Visit Ophthalmology, [facility] [address] [place] [address] Gomez Santiago DO [address] [place] [address] 01/25/2024 2:40 PM EDT Office Visit General Internal Medicine [facility] [place] 200 [facility] [place] [address] Henry Tejada MD 200 [facility] [place] [address] 04/15/2024 11:15 AM EDT Imaging Radiology [facility] 132 [facility] [place] [address] Scheduled Procedures Name Priority Associated Diagnoses Date/Ti [...] Advance Directives occurred with: Patient Care Teams Portable Pinch Riveter Relationship Specialty Start Date End Date Henry Tejada MD 200 [place], [place] [id number] PCP - General Internal Medicine 07/08/19 documented as of this encounter
--- OUTSIDE RECORDS SUMMARY | 2023-10-21 12:43 | External Medical Summary | Summary of Care ---
Author Name Unknown Organization [facility] Address [address] [place] [address] Phone [phone] Care Team Providers Care Radial Router Operator Name Role Phone Henry Tejada MD Primary Care Provider + Reason for Visit * Reason Comments NEW PATIENT hemorrhoids Encounter Details Date Type Department Care Team (Late st Contact Info) Description 09/27/2023 9:00 AM EDT Office Visit General Surgery, [facility] 132 [facility] [place] [address] Chandrakant Greenwood MD [address] [place] [address] Prolapsed internal hemorrhoids, grade 3*; Pre-op examination Allergies Active Allergy Reactions Criticality Noted Date Comments Shellfish Allergy 01/08/2020 ONLY CLAMS documented as of this encounter (statuses as of 09/27/2023) Medications Medication Sig Dispensed Refills Start Date [...] 09/19/2022 Active Additional Information Patient taking differently:2 [place] Each NostrilPRN, Rhinitis, St 09/19/2022, Reported on [...] as of this encounter (statuses as of 09/27/2023) Active Problems Problem Noted Date Diagnosed Date [...] as of this encounter (statuses as of 09/27/2023) Resolved Problems Problem Noted Date Diagnosed Date [...] as of this encounter (statuses as of 09/27/2023) Immunizations Name Administration Dates Next Due COVID-19 [...] No 09/01/2021 documented as of this encounter Progress Notes * Bran Jauregui LPN - 09/27/2023 9:03 AM EDT Patient identified by name and date of . Chief Complaint Patient presents with NEW PATIENT hemorrhoids Clinical Documentation Consultant Documentation Provider requested fertilizer processing supervisor. Name of fertilizer processing supervisor: bran jauregui LPN * Chandrakant Greenwood MD - 09/27/2023 8:54 AM EDT Chief Complaint: No chief complaint on file. History of Present Illness: Joya Collazo is a 73 year old female who is referred for evaluation of hemorrhoids which have been present for many years. 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 Importance of bowel regimen after surgery to prevent recurrence reviewed. Discussed postopcare to include sitz baths daily. Treatment Plan: Schedule internal / external hemorrhoidectomy. Consent signed. Attending: Chandrakant Greenwood MD 09/27/2023 8:54 AM documented in this encounter Nursing Notes * Jessica Alan LPN - 09/27/2023 9:50 AM EDT Patient scheduled at [facility] for exam under anesthesia with hemorrhoidectomy with Dr Chandrakant Greenwood. Date of Test: TBS Medications reviewed. EKG obtained Labs: obtained Permit signed. Patient verbalizes understanding of pre- and post op instructions. Written instructions given for review at later date. Jessica Alan LPN 09/27/2023 * Bhargavi Moraes MED ASSIST - 09/27/2023 8:56 AM EDT Chief Complaint Patient presents with NEW PATIENT hemorrhoids Verified patient. documented in this encounter Plan of Treatment Upcoming Encounters Date Type Department Care Team (Late st Contact Info) Description 11/15/2023 11:30 AM EDT Office Visit General Surgery, [facility] [address] [place] [address] Chandrakant Greenwood MD 132 [facility] [place] [address] 12/14/2023 1:30 PM EDT Office Visit Ophthalmology, [facility] 132 [facility] [place] [address] Gomez Santiago, DO [address] [place] [address] 01/25/2024 2:40 PM EDT Office Visit General Internal Medicine [facility] 200 [place] [address] Henry Tejada MD 200 [facility] [place] [address] 04/15/2024 11:15 AM EDT Imaging Radiology [facility] 132 [facility] [place] [address] Pending Results Name Type Priority Associated Diagnoses Date /Time COMPREHENSIVE METABOLIC PANEL Lab Routine Pre-op examination 09/27/2023 9:57 AM EDT Scheduled Orders Name Type Priority Associated Diagnoses Orde r Schedule EKG EKG Routine Pre-op examination Expected: 09/27/2023 (Approximate), Expires: 10/27/2024 COMPREHENSIVE METABOLIC PANEL Lab Routine Pre-op examination Expected: 09/27/2023, Expires: 09/26/2024 Health Maintenance Due Date Last Done Comments [...] Not on filedocumented as of this encounter Results * CBC (09/27/2023 9:57 AM EDT) WBC 5.06 4.00 - 10.80 K/uL 09/27/2023 10:23 AM EDT [facility]10 RBC 4.74 3.85 - 5.15 M/uL 09/27/2023 10:23 AM EDT [facility]10 HGB 14.3 12.0 - 15.3 g/dL 09/27/2023 10:23 AM EDT [facility]10 HCT 42.9 36.0 - 45.2 % 09/27/2023 10:23 AM EDT [facility]10 MCV 90.5 81.5 - 97.5 fL 09/27/2023 10:23 AM EDT [facility]10 MCH 30.2 27.0 - 34.0 pg 09/27/2023 10:23 AM EDT [facility]10 MCHC 33.3 32.0 - 36.0 g/dL 09/27/2023 10:23 AM EDT [facility]10 RDW 13.5 11.5 - 15.5 % 09/27/2023 10:23 AM EDT [facility]10 PLT 213 140 - 400 K/uL 09/27/2023 10:23 AM EDT [facility]10 MPV 11.1 6.6 - 11.1 fL 09/27/2023 10:23 AM EDT [facility]10 Blood Venous blood specimen / Unknown Venipuncture / Unknown 09/27/2023 9:57 AM EDT 09/27/2023 9:57 AM EDT Chandrakant Greenwood MD LAB BLOOD ORDER [facility] [address] [place] [address] documented in this encounter Visit Diagnoses Diagnosis Prolapsed internal hemorrhoids, grade 3- Primary Pre-op examination Preoperative examination, unspecified documented in this encounter Additional Health [...] Advance Directives occurred with: Patient Care Teams Radial Router Operator Relationship Specialty Start Date End Date Henry Tejada MD 200 [place] [address] PCP - General Internal Medicine 07/08/19 documented as of this encounter
--- OUTSIDE RECORDS SUMMARY | 2023-10-21 12:43 | External Medical Summary | Summary of Care ---
Author Name Unknown Organization [facility] Address [address] [place] [address] Phone [phone] Care Team Providers Care Pearl Hand Name Role Phone Henry Tejada MD Primary Care Provider + Reason for Visit * Reason Comments Outpatient Testing Encounter Details Date Type Department Care Team (Late st Contact Info) Description 09/27/2023 10:10 AM EDT Laboratory Laboratory, [facility] [address] [place] [phone] [facility] [address] [place] [address] Pre-op examination Allergies Active Allergy Reactions Criticality [...] 09/19/2022 Active Additional Information Patient taking differently:2 [place] Each NostrilPRN, Rhinitis, St 09/19/2022, Reported on [...] No 09/01/2021 documented as of this encounter Plan of Treatment Upcoming Encounters Date Type Department Care Team (Late st Contact Info) Description 11/15/2023 11:30 AM EDT Office Visit General Surgery, [facility] [address] [place] [address] Chandrakant Greenwood MD 132 [place] [address] 12/14/2023 1:30 PM EDT Office Visit Ophthalmology, [facility] [address] [place] [address] Gomez Santiago DO 21 [place] [address] 01/25/2024 2:40 PM EDT Office Visit General Internal Medicine [facility] [address] [place] [address] Henry Tejada MD [address] [place] [address] 04/15/2024 11:15 AM EDT Imaging Radiology [address], [address] [place] Pending Results Name Type Priority Associated Diagnoses Date /Time CBC Lab Routine Pre-op examination 09/27/2023 9:57 AM EDT COMPREHENSIVE METABOLIC PANEL Lab Routine Pre-op examination 09/27/2023 9:57 AM EDT Health Maintenance Due Date Last [...] as of this encounter Visit Diagnoses Diagnosis Pre-op examination Preoperative examination, unspecified documented in [...] Advance Directives occurred with: Patient Care Teams Pearl Hand Relationship Specialty Start Date End Date Henry Tejada MD 200 [place] [address] PCP - General Internal Medicine 07/08/19 documented as of this encounter
--- OUTSIDE RECORDS SUMMARY | 2023-10-21 12:43 | External Medical Summary | Summary of Care ---
Author Name Unknown Organization [facility] Address [address] [place] [address] Phone [phone] Care Team Providers Care Apartment Leasing Manager Name Role Phone Henry Tejada MD Primary Care Provider + Reason for Visit * Reason Onset Date Comments Advice 10/02/2023 Encounter Details Date Type Department Care Team (Late st Contact Info) Description 10/02/2023 Telephone General Surgery, [facility] [address] [facility] [place] [address] Chandrakant Greenwood MD [address] [place] [address] Advice Allergies Active Allergy Reactions Criticality Noted [...] 09/19/2022 Active Additional Information Patient taking differently:2 [place] Each NostrilPRN, Rhinitis, St 09/19/2022, Reported on [...] [facility], Operating Room [facility] [address] [place] [address] Chandrakant Greenwood MD [address] [place] [address] 11/15/2023 11:30 AM EDT Office Visit General Surgery, [facility] [address] [place] [address] Chandrakant Greenwood MD 132 [place] [address] 12/14/2023 1:30 PM EDT Office Visit Ophthalmology, [facility] [address] [place] [address] Gomez Santiago DO 21 [facility] [place] [address] 01/25/2024 2:40 PM EDT Office Visit General Internal Medicine [facility] 200 [facility] [place] [place] [address] Henry Tejada MD 200 [facility] [place] [address] 04/15/2024 11:15 AM EDT Imaging Radiology [facility] 1st [facility] [address] [place] [address] Scheduled Procedures Name Priority Associated Diagnoses Date/Ti [...] Advance Directives occurred with: Patient Care Teams Apartment Leasing Manager Relationship Specialty Start Date End Date Henry Tejada MD 200 [facility] [place] [address] PCP - General Internal Medicine 07/08/19 documented as of this encounter
--- OUTSIDE RECORDS SUMMARY | 2023-10-21 12:43 | External Medical Summary | Summary of Care ---
Author Name Unknown Organization [facility] Address [address] [place] [address] Phone [phone] Care Team Providers Care Wood And Wood Products Factory Worker Name Role Phone Henry Tejada MD Primary Care Provider + Reason for Visit * Reason Onset Date Comments Advice 10/02/2023 Encounter Details Date Type Department Care Team (Late st Contact Info) Description 10/02/2023 Telephone General Surgery, [facility] [address] [facility] [place] [address] Chandrakant Greenwood MD [address] [place] [address] Advice Allergies Active Allergy Reactions Criticality Noted [...] 09/19/2022 Active Additional Information Patient taking differently:2 [place] Each NostrilPRN, Rhinitis, St 09/19/2022, Reported on [...] 10/31/2023 2:00 PM EDT Hospital Encounter OR [facility], Operating Room [facility] [address] [place] [address] Chandrakant Greenwood MD [address] [place] [address] 10/31/2023 2:00 PM EDT - 10/31/2023 2:58 PM EDT Surgery OR [facility], Operating Room [facility] [address] [place] [address] Chandrakant Greenwood MD [address] [place] [address] ANORECTAL EXAM UNDER ANESTHESIA 11/15/2023 11:30 AM EDT Office Visit General Surgery, [facility] [address] [place] [address] Chandrakant Greenwood MD [address] [place] [address] 12/14/2023 1:30 PM EDT Office Visit Ophthalmology, [facility] [address] [place] [address] Gomez Santiago DO 21 [place] [address] 01/25/2024 2:40 PM EDT Office Visit General Internal Medicine [facility] [place] 200 [facility] [place] [address] Henry Tejada MD 200 [facility] [place] [address] 04/15/2024 11:15 AM EDT Imaging Radiology [facility] [address] [facility] 132 [facility] [place] [address] Scheduled Procedures Name Priority Associated Diagnoses Date/Ti [...] Advance Directives occurred with: Patient Care Teams Wood And Wood Products Factory Worker Relationship Specialty Start Date End Date Henry Tejada MD 200 [place], [place] [phone] PCP - General Internal Medicine 07/08/19 documented as of this encounter
--- OUTSIDE RECORDS SUMMARY | 2023-10-21 12:43 | External Medical Summary | Summary of Care ---
Author Name Unknown Organization [facility] Address [address] [place] [address] Phone [phone] Care Team Providers Care Plumbing Instructor Name Role Phone Henry Tejada MD Primary Care Provider + Reason for Visit * Reason Onset Date Comments Medication Refill 09/04/2023 Encounter Details Date Type Department Care Team (Late st Contact Info) Description 09/04/2023 Telephone General Internal Medicine [facility] 200 [place] [address] Henry Tejada MD 200 [facility] [place] [address] Medication Refill Allergies Active Allergy Reactions Criticality [...] 3 Active Additional Information Patient taking differently:2 [place] Each NostrilPRN, Rhinitis, St 09/19/2022, Reported on [...] encounter Miscellaneous Notes * Telephone Encounter - Radha Hinton chief engineer research - 09/08/2023 11:02 AM EST Pt said pharmacy will not fill today unless Dr or office calls with permission Pt is going away andneeds this morning in order to catch a flight out. Please call [facility] Thank you for your assistance Radha Hinton Learning And Development Intern II Centralized Clinical Pharmacy Services ([facility]) (Formerly Telepharmacy) 09/08/2023,11:02 AM * Telephone Encounter - Henry Tejada MD - 09/07/2023 9:04 AM ESTSigned Prescriptions: Disp Refills clonazePAM 1 MG Oral Tablet (KlonoPIN) 30 Tab*0 Sig: TAKE 1 TABLET BY MOUTH ONCE DAILY AT BEDTIME NEEDED FOR SLEEP Authorizing Provider: HENRY TEJADA * Telephone Encounter - Henry Tejada MD - 09/06/2023 6:20 PM EST Pending Prescriptions: Disp Refills clonazePAM 1 MG Oral Tablet (KlonoPIN) 30 Tab*0 Sig: TAKE 1 TABLET BY MOUTH ONCE DAILY AT BEDTIME NEEDED FOR SLEEP * Telephone Encounter - Susan Mccracken, chief engineer research - 09/06/2023 3:53 PM EST Pt returning call received. Call very static, cutting in/out. Pt advised that Rx will be sent to pharmacy tomorrow . Pt is aware, and understands. Thank you, Susan Mccracken Supervisor Microfilm Duplicating Unit II Certified Centralized Clinical Pharmacy Services [facility] (formerly Telepharmacy) 09/06/2023,3:54 PM * Telephone Encounter - Shirin Yu LPN - 09/06/2023 2:47 PM EST Left message for patient to call back regarding message below. * Telephone Encounter - Henry Tejada MD - 09/06/2023 11:02 AM EST States she is leaving Monday so I will send tomorrow! It is 2nd early request, we need to be very careful with these controlled substances and early requests! * Telephone Encounter - Radha Hinton chief engineer research - 09/06/2023 10:59 AM EST Pt needs this today as she is going away on a cruise she has to pick this up today Please advise Thank you for your assistance Radha Hinton Learning And Development Intern II Central[facility] Clinical Pharmacy Services ([facility]) (Formerly Telepharmacy) 09/06/2023,11:00 AM * Telephone Encounter - Henry Tejada MD - 09/05/2023 3:55 PM EST Pending Prescriptions: Disp Refills clonazePAM 1 MG Oral Tablet (KlonoPIN) 30 Tab*0 Sig: TAKE 1 TABLET BY MOUTH ONCE DAILY AT BEDTIME NEEDED FOR SLEEP * Telephone Encounter - Rosario Roman chief engineer research - 09/05/2023 3:19 PM EST Pt calling to check on status of Clonazepam. Caller can be reached at . Thank you, Rosario Roman Supervisor Microfilm Duplicating Unit I Centralized Clinical Pharmacy Services ([facility]) (Formerly Telepharmacy) 09/05/2023,3:19 PM * Telephone Encounter - Mere Gusman [facility] - 09/04/2023 12:14 PM ESTPending Prescriptions: Disp Refills clonazePAM 1 MG Oral Tablet (KlonoPIN) 30 Tab*0 Sig: TAKE 1 TABLET BY MOUTH ONCE DAILY AT BEDTIME NEEDED FOR SLEEP * Telephone Encounter - Mere Gusman [facility] - 09/04/2023 12:13 PM EST I have reviewed the patients controlled substance dispensing history in the Prescription Drug Monitoring Program in compliance with the [facility] regulations before prescribing a controlled substance. PDMP checked on 09/04/2023. Pending Prescriptions: Disp Refills clonazePAM 1 MG Oral Tablet (KlonoPIN) 30 Tab*0 Sig: TAKE 1 TABLET BY MOUTH ONCE DAILY AT BEDTIME NEEDED FOR SLEEP Last Visit: 04/28/2023 (in office), 06/23/2022 (telemedicine) Next Visit: 01/25/2024 Date medication was last filled: 08/13/23 Date medication is due for refill: 09/11/23 Pharmacy: [facility] [address] [place] [address] Is this request for a controlled substance? [...] Please approve if appropriate. Thank You, Mere Gusman [facility] Clinical Pharmacist Centralized Clinical Pharmacy Services (CCPS) (formerly Telepharmacy) [phone] 09/04/2023, 12:13 PM * Telephone Encounter - Rosario Roman, chief engineer research - 09/04/2023 11:48 AM EST Pt requesting HIGH PRIORITY due to Pt leaving on cruise on Monday. Pt would like to be able to pickup medication at pharmacy by . Pt understands this is an early request. Did you pend patient's preferred pharmacy and medication before forwarding?yes Pharmacy: [facility] [address] [place] [address] Pending Prescriptions: Disp Refills clonazePAM 1 MG [...] 12/14/2023 1:30 PM EDT Office Visit Ophthalmology, [facility] 132 [facility] [place] [address] Gomez Santiago DO 21 [place] [address] 01/25/2024 2:40 PM EDT Office Visit General Internal Medicine [facility] 200 [facility] [place] [address] Henyr Tejada MD 200 [facility] [place] [address] 04/15/2024 11:15 AM EDT Imaging Radiology [address] 132 [facility] [place] [address] Health Maintenance Due Date Last Done Comments [...] Advance Directives occurred with: Patient Care Teams Plumbing Instructor Relationship Specialty Start Date End Date Henry eTjada MD 200 [place] [address] PCP - General Internal Medicine 07/08/19 documented as of this encounter
--- NOTE | 2023-10-21 13:11 | Hospitalist Progress Note ---
Date of Service October 21, 2023 Assessment & Plan (1) Hypoxia: Plan: 71-year-old female with past medical history significant for prediabetes, hypothyroidism, mixed hyperlipidemia, aortic valve insufficiency, GERD, vitamin D deficiency, mild fibromyalgia, myofascial pain dysfunction syndrome, osteopenia, scleritis, persistent insomnia, anxiety, positive antinuclear antibody, recently had hemorrhoid surgery and since then she is constipated. Constipation Recently hemorrhoidectomy Patient recently had hemorrhoidectomy as outpatient 4 days prior to presentation Reports constipation since then; recently took narcotic pain meds as well CT abdomen and pelvis shows large stool burden Discussed with surgery; plan for Fleet enema if patient is okay Continue aggressive bowel regimen Continue gentle IV hydration Acute hypoxic respiratory failure Likely secondary to bowel distention CTA chest did not show any PE or infiltrate Continue incentive spirometry Wean off oxygen as tolerated Syncope Possible vasovagal Suspect vasovagal symptoms while she was straining on the commode Echocardiogram shows EF of greater than 70% Continue to monitor on telemetry Cardiology consulted; no further cardiac testing Hypermagnesemia mag 5.7 in am labs mild hypocalcemia Likely secondary to use of milk of magnesia Discussed with nephrology; recommended to continue IV fluids Prediabetes HbA1c of 5.8% On Ozempic Aortic valve insufficiency Echo in September 2023 normal EF, trace to mild aortic regurgitation Follows with cardiology History of fibromyalgia Myofascial pain dysfunction syndrome On duloxetine and gabapentin Hypothyroidism On Synthyroid, continue Anxiety On clonazepam DVT prophylaxis Heparin subcu Disposition Med/telemetry Full code Discussed plan of care with her at bedside. Answer questions/queries Time spent evaluating patient, direct bedside care, chart review, placing orders, interpretation of diagnostic studies, discussion with consultants, patient, and family members, as well as other required patient management activities is 50 minutes Please note the above document was generated using voice recognition software. It may contain grammatical, syntax or spelling errors. Any formal questions or concerns about the content, text or information contained within the body of this dictation should be directly addressed to the provider for clarification Admission and Anticipated Discharge Date Admission Date: October 20, 2023 Subjective Patient continues to report constipation. No bowel movement yet No complaint of abdominal pain. No fever or chills. Review of Systems Review of Systems: All systems reviewed & are unremarkable except as noted in Subjective Physical Exam Physical Exam: General- Not in acute distress Head- atraumatic Eyes- PERRL. ENT- oropharynx dry Neck- supple, no JVD. Lungs- clear to auscultation no wheezing or crackles Heart- regular rate and rhythm; no murmur, no gallop Abdomen -slightly distended, nontender. Bowel rectalbruising and swelling from surgery; sutures intact; no active bleeding. Extremities- no pretibial edema, no erythema seen Neuro- alert, oriented x 3; PERRL, EOMI; no facial palsy; no dysarthria; motor 5/5 bilaterally; no pronator drift, coordination of movements normal heel franklin test ok, sensations intact, position sense intact. Skin- warm & dry Results & Data Results & Data Vital Signs (Past 12 Hours) Vital Signs Temp Pulse Pulse Resp BP BP Pulse Ox 10/21/23 12:20 36.4 C L 79 16 112/76 98 10/21/23 12:13 10/21/23 10:23 36.5 C 79 17 103/71 97 10/21/23 10:23 82 10/21/23 08:33 89 18 112/68 99 10/21/23 07:03 80 10/21/23 04:40 75 17 110/70 99 10/21/23 04:30 76 19 99 10/21/23 04:20 76 12 99 10/21/23 04:10 75 12 99 10/21/23 04:00 74 14 99 10/21/23 03:50 74 13 99 10/21/23 03:40 72 25 H 99 10/21/23 03:30 72 14 99 10/21/23 03:20 78 21 98 10/21/23 03:10 73 13 99 10/21/23 03:00 74 13 99 10/21/23 02:50 74 13 99 10/21/23 02:40 74 13 99 10/21/23 02:35 73 16 99 10/21/23 02:33 10/21/23 02:33 74 18 128/85 99 10/21/23 02:30 73 12 128/85 99 10/21/23 02:20 75 13 99 10/21/23 02:10 75 13 100 10/21/23 02:00 75 13 99 10/21/23 01:50 79 17 100 10/21/23 01:40 77 16 10/21/23 01:32 77 10/21/23 01:30 78 17 10/21/23 01:20 80 18 10/21/23 01:10 85 20 98 10/21/23 01:04 84 25 H 99 O2 Del Method O2 Flow Rate 10/21/23 12:20 Nasal Cannula 2 10/21/23 12:13 Room Air 10/21/23 10:23 Nasal Cannula 2 10/21/23 10:23 10/21/23 08:33 10/21/23 07:03 10/21/23 04:40 10/21/23 04:30 10/21/23 04:20 10/21/23 04:10 10/21/23 04:00 10/21/23 03:50 10/21/23 03:40 10/21/23 03:30 10/21/23 03:20 10/21/23 03:10 10/21/23 03:00 10/21/23 02:50 10/21/23 02:40 10/21/23 02:35 10/21/23 02:33 Nasal Cannula 2 10/21/23 02:33 Nasal Cannula 2 10/21/23 02:30 10/21/23 02:20 10/21/23 02:10 10/21/23 02:00 10/21/23 01:50 10/21/23 01:40 10/21/23 01:32 10/21/23 01:30 10/21/23 01:20 10/21/23 01:10 10/21/23 01:04
[2023-10-21] MEDS: SOD PHOSPHATE/SOD BIPHOSPHATE ENEMA 132 ML BTL PR PRN (13:15)
--- OUTSIDE RECORDS SUMMARY | 2023-10-21 15:29 | External Medical Summary | Summary of Care ---
Author Name Unknown Organization [facility] Address [address] [place] [address] Phone [phone] Care Team Providers Care It Sales Representative Name Role Phone Henry Tejada MD Primary Care Provider + Reason for Visit * Reason Comments eRx-Medication Refill Encounter Details Date Type Department Care Team (Late st Contact Info) Description 10/15/2023 Refill General Internal Medicine [facility] [address] [facility] [place] [address] Henry Tejada MD [address] [place] [address] Anxiety Allergies Active Allergy Reactions Criticality Noted Date Comments Shellfish Allergy 01/08/2020 ONLY CLAMS documented as of this encounter (statuses as of 10/20/2023) Medications Medication Sig Dispensed Refills Start Date [...] 3 Active Additional Information Patient taking differently:2 [place] Each NostrilPRN, Rhinitis, St 09/19/2022, Reported on [...] as of this encounter (statuses as of 10/20/2023) Active Problems Problem Noted Date Diagnosed Date [...] as of this encounter (statuses as of 10/20/2023) Resolved Problems Problem Noted Date Diagnosed Date [...] as of this encounter (statuses as of 10/20/2023) Immunizations Name Administration Dates Next Due COVID-19 [...] Telephone Encounter - Nicki Henriquez CPhT - 10/17/2023 10:33 AM EDTSigned Prescriptions: Disp Refills clonazePAM 1 MG Oral Tablet (KlonoPIN) 30 Tab*0 Sig: TAKE 1 TABLET BY MOUTH ONCE DAILY AT BEDTIME NEEDED FOR SLEEP Authorizing Provider: HENRY TEJADA Refused Prescriptions: Disp Refills DULoxetine HCl 60 MG Oral Capsule Delayed *30 Cap*0 Sig: Take 1 capsule by mouth once daily Refused B y: MARGIE DAN Reason for Refusal: Too soon * Telephone Encounter - Margie Dan [facility] - 10/17/2023 6:09 AM EDT Pending Prescriptions: Disp Refills clonazePAM 1 MG Oral Tablet (KlonoPIN) 30 Tab*0 Sig: TAKE 1 TABLET BY MOUTH ONCE DAILY AT BEDTIME NEEDED FOR SLEEP Refused Prescriptions: Disp Refills DULoxetine HCl 60 MG Oral Capsule Delayed *30 Cap*0 Sig: Take 1 capsule by mouth once daily Refused By: MARGIE DAN Reason for Refusal: Too soon * Telephone Encounter - Margie Dan [facility] - 10/17/2023 6:09 AM EDT Pending Prescriptions: Disp Refills clonazePAM 1 MG Oral Tablet (KlonoPIN) 30 Tab*0 Sig: TAKE 1 TABLET BY MOUTH ONCE DAILY AT BEDTIME NEEDED FOR SLEEP Refused Prescriptions: Disp Refills DULoxetine HCl 60 MG Oral Capsule Delayed *30 Cap*0 Sig: Take 1 capsule by mouth once daily Refused By: MARGIE DAN Reason for Refusal: Too soon * Telephone Encounter - Margie Dan [facility] - 10/17/2023 6:08 AM EDT Nick sent 08/21 for 6 month supply I have reviewed the patients controlled substance dispensing history in the Prescription Drug Monitoring Program in compliance with the [facility] regulations before prescribing a controlled substance. PDMP checked on 10/17/2023. Pending Prescriptions: Disp Refills clonazePAM 1 MG Oral Tablet (KlonoPIN) 30 Tab*0 Sig: TAKE 1 TABLET BY MOUTH ONCE DAILY AT BEDTIME NEEDED FOR SLEEP Refused Prescriptions: Disp Refills DULoxetine HCl 60 MG Oral Capsule Delayed *30 Cap*0 Sig: Take 1 capsule by mouth once daily Refused By: MARGIE DAN Reason for Refusal: Too soon Last Visit: 04/28/2023 (in office), 06/23/2022 (telemedicine) Next Visit: 01/25/2024 Date medication was last filled: 09/07 Date medication is due for refill: 10/07 Pharmacy: [facility] [address] [place] [address] Is this request for a controlled substance? [...] upon request. Please approve if appropriate. Thank you, Margie Dan, PharmD. Clinical Pharmacist Centralized Clinical Pharmacy Services (CCPS) (formerly Telepharmacy) 10/17/2023, 6:08 AM * Telephone Encounter - Nicki Henriquez CPhT - 10/16/2023 10:37 AM EDT Did you pend patient's preferred pharmacy and medication before forwarding?yes Pharmacy: [facility] [address] [place] [address] [place] [address] Pending Prescriptions: Disp Refills DULoxetine HCl 60 MG Oral Capsule Delayed*30 Cap*0 Sig: Take 1 capsule by mouth once daily clonazePAM 1 MG Oral Tablet (KlonoPIN) 30 Tab*0 Sig: TAKE 1 TABLET BY MOUTH ONCE DAILY AT BEDTIME NEEDED FOR SLEEP Last Visit: 04/28/2023 (in office), 06/23/2022 (telemedicine) Next Visit: 01/25/2024 If no future appointments scheduled, and last appointment is greater than a year ago, please schedule patient for a follow-up appointment Last date the medication was ordered: 09/07/2023 Is this request for a controlled substance?Yes, What was the last refill date 09/07/2023 w/ [id number] and dosage 1mg and Urine Drug Screen Not completed Urine Drug Screen: Results for orders [...] Lab Results Component Value Date/Time CREAT 0.9 09/27/2023 09:57 AM CREAT 1.1 (H) 08/06/2020 12:19 PM POTASSIUM 5.4 (H) 09/27/2023 09:57 AM POTASSIUM 5.3 (H) 08/06/2020 12:19 PM TSH 3.66 02/08/2023 09:50 AM TSH 2.58 07/08/2020 11:10 AM LDLCALC 100 02/08/2023 09:50 AM LDLCALC 95 07/08/2020 11:10 AM LDLDIRECT NOT APPLICABLE 07/08/2020 11:10 AM ALT 36 (H) 09/27/2023 09:57 AM ALT 29 08/06/2020 12:19 PM HGBA1C 5.8 (H) 02/08/2023 09:50 AM HGBA1C 6.1 (H) 07/08/2020 11:10 AM documented in this encounter Plan of Treatment Upcoming Encounters Date Type Department Care Team (Late st Contact Info) Description 11/01/2023 1:00 PM EDT Office Visit General Surgery, [facility] [address] [address] Chandrakant Greenwood MD 132 [facility] [place] [address] 12/14/2023 1:30 PM EDT Office Visit Ophthalmology, [facility] [address] [place] [address] [address] Gomez Santiago DO [address] [facility] [place] [address] 01/25/2024 2:40 PM EDT Office Visit General Internal Medicine [facility] [place] [address] Henry Tejada MD 200 [facility] [place] [address] 04/15/2024 11:15 AM EDT Imaging Radiology [facility] [address] [place] [address] Health Maintenance Due Date Last Done Comments [...] Advance Directives occurred with: Patient Care Teams It Sales Representative Relationship Specialty Start Date End Date Henry Tejada MD 200 [place] [address] PCP - General Internal Medicine 07/08/19 documented as of this encounter
--- OUTSIDE RECORDS SUMMARY | 2023-10-21 15:29 | External Medical Summary | Summary of Care ---
Author Name Unknown Organization [facility] Address [address] [place] [address] Phone [phone] Care Team Providers Care Photo Stylist Name Role Phone Henry Tejada MD Primary Care Provider + Reason for Visit * Reason Onset Date Comments Advice 10/19/2023 Pain/bowel movem ent Encounter Details Date Type Department Care Team (Late st Contact Info) Description 10/19/2023 Telephone General Surgery, [facility] [address] [place] [address] Services, Scheduling [address] [place] [address] Advice (Pain/bowel movement ) Allergies Active Allergy [...] 09/19/2022 Active Additional Information Patient taking differently:2 [place] Each NostrilPRN, Rhinitis, St 09/19/2022, Reported on [...] Telephone Encounter - Homa Bah LPN - 10/20/2023 12:57 PM EDT Pt called while I was on break. So I returned pt call. Pt still in pain at her rectum and " scared" to push to have a BM. Pain Pt stating that her stool is " stuck" at the outlet of her rectum. Per Christina- if pt was not any better and still no Bm and not able to control the pain with her regimen( ibuprofen, tyleonol, percocet and bowel medications)- pt was to go to the ER. Pt and - do not want to go to the ER- they don't want anyone " that isn'tfamiliar with her case" looking at her rectum. Pt has only taken the ibuprofen, tylenol, miralax, percocet, 3 prunes, gummies , and sitz bath today. Pt has not taken the MOM- explained to please follow the discharge protocol- which they explained per paperwork- if no BM she is to be taking this every 4-6 hours. Explained to pt that they could try warming up the prune juice and drinking with some 7 up or gingerale- the bubbly and the warm prune juice usually helps. Also explained that if she was going to take the enema- the idea of taking the enema is to hold theliquid as long as she can inside, than expel it when she feels the need to have a BM. Suggested that she could lay on the floor on her left side and have her put the enema in( this was suggested due to pt having pain and didn't think she could do it on the toilet)- pad the floor incase she can not make it to the toilet in time, (and also so she doesn't fall). And than once she feels she may need to have a BM- go to the toilet. Pt and agreeable to try this as well- pt concerned about " how to get the enema in " with the stool blocking insertion. Explained to pt that she could use vasoline on the end of the enema( usually comes with some on already ) and also could put some around the edge of the rectum to help with the pain when she tried to push to have a BM. Pt and agreeable to try this as well. But did express multiple times in depth, that if she can not control her pain and she has not had aBM by this evening, that per christina-she must go to the ER. The ER can take imaging and evaluate what she needs to do. Also expressed that I would call them closer to the end of the day to see how she is doing. * Telephone Encounter - Robyn Ruiz PA-C [...] 1:00 PM EDT Office Visit General Surgery, [facility] [address] [address] Chandrakant Greenwood MD [address] [place] [address] 12/14/2023 1:30 PM EDT Office Visit Ophthalmology, [facility] [address] [address] [address] Gomez Santiago DO [address] [place] [address] 01/25/2024 2:40 PM EDT Office Visit General Internal Medicine [facility] 200 [place] [address] Henry Tejada MD 200 [facility] [place] [address] 04/15/2024 11:15 AM EDT Imaging Radiology [address] 132 [facility] [place] [address] Health Maintenance Due Date Last Done Comments [...] Advance Directives occurred with: Patient Care Teams Photo Stylist Relationship Specialty Start Date End Date Henry Tejada MD 200 [facility] [address] PCP - General Internal Medicine 07/08/19 documented as of this encounter
--- OUTSIDE RECORDS SUMMARY | 2023-10-21 15:29 | External Medical Summary | Summary of Care ---
Author Name Unknown Organization [facility] Address [address] [place] [address] Phone [phone] Care Team Providers Care Roof Bolting Coal Miner Name Role Phone Henry Tejada MD Primary Care Provider + Reason for Visit * Reason Onset Date Comments Advice 10/19/2023 Pain/bowel movem ent Encounter Details Date Type Department Care Team (Late st Contact Info) Description 10/19/2023 Telephone General Surgery, [facility] [address] [place] [address] Services, Scheduling [address] [place] [address] Advice (Pain/bowel movement ) Allergies Active Allergy [...] 09/19/2022 Active Additional Information Patient taking differently:2 [place] Each NostrilPRN, Rhinitis, St 09/19/2022, Reported on [...] encounter Miscellaneous Notes * Telephone Encounter - oHma Bah LPN - 10/20/2023 3:31 PM EDT TT sent to provider to make her aware. * Telephone Encounter - Homa Bah LPN - 10/20/2023 3:28 PM EDT Called to check on patient, pt , said that she is doing poorly, extreme pain, no BM and can not sit on her rectum and pt is very weak. Per , they are at [facility] ER currently - just got there in admin. * Telephone Encounter - Homa Bah LPN [...] 1:00 PM EDT Office Visit General Surgery, [facility] [address] [address] Chandrakant Greenwood MD 132 [facility] [place] [address] 12/14/2023 1:30 PM EDT Office Visit Ophthalmology, [facility] [address] [address] Gomez Santiago DO [address] [facility] [place] [address] 01/25/2024 2:40 PM EDT Office Visit General Internal Medicine [facility] 200 [place] [address] [facility] MD [facility] [address] 04/15/2024 11:15 AM EDT Imaging Radiology [facility] 1st [facility] [address] [place] [address] Health Maintenance Due Date Last Done Comments [...] Advance Directives occurred with: Patient Care Teams Roof Bolting Coal Miner Relationship Specialty Start Date End Date Henry Tejada MD [address] [place], [place] [address] PCP - General Internal Medicine 07/08/19 documented as of this encounter
--- OUTSIDE RECORDS SUMMARY | 2023-10-21 15:29 | External Medical Summary | Summary of Care ---
Author Name Unknown Organization [facility] Address [address] [place] [address] Phone [phone] Care Team Providers Care Debone Supervisor Name Role Phone Henry Tejada MD Primary Care Provider + Reason for Visit * Reason Onset Date Comments Advice 10/19/2023 Pain/bowel movem ent Encounter Details Date Type Department Care Team (Late st Contact Info) Description 10/19/2023 Telephone General Surgery, [facility] [address] [place] [address] Services, Scheduling [address] [place] [address] Advice (Pain/bowel movement ) Allergies Active Allergy [...] 09/19/2022 Active Additional Information Patient taking differently:2 [place] Each NostrilPRN, Rhinitis, St 09/19/2022, Reported on [...] Encounter - Homa Bah LPN - 10/20/2023 3:31 PM EDT TT sent to provider to make her aware. * Telephone Encounter - Homa Bah LPN - 10/20/2023 3:28 PM EDT Called to check on patient, pt , said that she is doing poorly, extreme pain, no BM and can not sit on her rectum and pt is very weak. Per , they are at [facility] ER currently - just got there in [...] 1:00 PM EDT Office Visit General Surgery, [facility] [address] [address] Chandrakant Greenwood MD 132 [facility] [place] [address] 12/14/2023 1:30 PM EDT Office Visit Ophthalmology, [facility] [address] [place] [address] [address] Gomez Santiago DO [address] [place] [address] 01/25/2024 2:40 PM EDT Office Visit General Internal Medicine [facility] 200 [place] [address] [facility] MD [facility] [address] 04/15/2024 11:15 AM EDT Imaging Radiology [facility] 1st [facility] [address] [place] [address] Health Maintenance Due Date Last Done Comments [...] Advance Directives occurred with: Patient Care Teams Debone Supervisor Relationship Specialty Start Date End Date Henry Tejada MD [address] [place], [place] [address] PCP - General Internal Medicine 07/08/19 documented as of this encounter
--- OUTSIDE RECORDS SUMMARY | 2023-10-21 15:29 | External Medical Summary | Summary of Care ---
Author Name Unknown Organization [facility] Address [address] [place] [address] Phone [phone] Care Team Providers Care Senior Electrical Engineer Name Role Phone Henry Tejada MD Primary Care Provider + Reason for Visit * Reason Onset Date Comments Other 10/19/2023 Encounter Details Date Type Department Care Team (Late st Contact Info) Description 10/19/2023 Telephone General Surgery, [facility] [address] [place] [address] Chandrakant Greenwood MD [address] [place] [address] Other Allergies Active Allergy Reactions Criticality Noted [...] 09/19/2022 Active Additional Information Patient taking differently:2 [place] Each NostrilPRN, Rhinitis, St 09/19/2022, Reported on [...] she has used MOM, miralax, stool softener I told her to go to ER if she can nothave a bowel movement. Will try more MOM * Telephone Encounter - Natalie Elizondo, tourism radio presenter - 10/19/2023 12:09 PM EDT Incoming call from patient's ec stating patient is in a lot of pain and is having difficulty urinating since her surgery on 10/17/23. Attempting to contact nurse line with no answer. Pt can be reached at [phone]. Thank you, Natalie Elizondo Drafter Electromechanical Centralized Clinical Pharmacy Services (CCPS) (formerly Telepharmacy) 10/19/2023,12:11 PM documented in this encounter Plan of Treatment Upcoming Encounters Date Type Department Care Team (Late st Contact Info) Description 11/01/2023 1:00 PM EDT Office Visit General Surgery, [facility] [address] [place] [address] [address] Chandrakant Greenwood MD [address] [place] [address] 12/14/2023 1:30 PM EDT Office Visit Ophthalmology, [facility] [address] [place] [address] [address] Gomez Santiago, DO 21 [facility] [place] [address] 01/25/2024 2:40 PM EDT Office Visit General Internal Medicine [facility] 200 [facility] [place] [address] Henry Tejada MD 200 [facility] [place] [address] 04/15/2024 11:15 AM EDT Imaging Radiology [address] 132 [facility] [place] [address] Health Maintenance Due Date Last Done Comments [...] Advance Directives occurred with: Patient Care Teams Senior Electrical Engineer Relationship Specialty Start Date End Date Henry Tejada MD [address] [place] [address] PCP - General Internal Medicine 07/08/19 documented as of this encounter
[2023-10-21] MEDS: ALPRAZolam 0.25 MG TABLET PO STA (17:06)
[2023-10-21] MEDS: bisacodyL 10 MG SUPP PR STA (17:28)
[2023-10-21] MEDS: LACTULOSE SYRUP 20 GM/30 ML UDC PO ONE (17:33)
[2023-10-21] MEDS: ATORVASTATIN 20 MG TAB PO SCH (20:21)
[2023-10-21] MEDS: IBUPROFEN 200 MG/10 ML UDC PO PRN (20:25)
[2023-10-21] MEDS: clonazePAM 1 MG TAB PO PRN (20:25)
[2023-10-21] MEDS: DOCUSATE SODIUM/SENNA 50/8.6MG TAB PO SCH (20:33)
[2023-10-21] MEDS: ACETAMINOPHEN 325 MG TAB PO PRN (23:07)
[2023-10-22] MEDS: KETOROLAC TROMETHAMINE 15 MG/ML VIAL IV ONE (01:33)
[2023-10-22] MEDS: ONDANSETRON INJ 2 MG/ML 2 ML VIAL IV PRN (01:44)
--- NOTE | 2023-10-22 03:20 | Surgery Progress Note ---
Date of Service October 22, 2023 Assessment & Plan (1) S/P hemorrhoidectomy: Plan: Patient is status post hemorrhoidectomy on 10/17/2023 (postop day #5) The patient still complains of constipation and has not had a substantial bowel movement. We will continue with bowel regimen Which currently includes Senokot and MiraLAX. The patient was noted to have elevated magnesium levels and has been seen by nephrology. Is felt that this may have been due to some of the laxatives that patient had received including milk of magnesia and magnesium citrate. Has been recommended by nephrology that medications containing magnesium should be avoided. Lidocaine jelly has been added to patient's medication regimen with the hopes that this will provide some analgesic effect the patient's rectum, thus making bowel movement less painful Would also recommend gentle use of enemasthe patient did express concern over using these as they are uncomfortable Due to the concern by patient's son of poor oral intake and dehydration I have contacted the hospitalist service and asked them to address the patient's intravenous fluids which they have done. Check a.m. labs once available The patient is currently on a clear liquid diet which should continue. Consid eration be given to advancing the patient's diet as her appetite improves We will continue to follow along while the patient is hospitalized (2) Acute constipation: Admission and Anticipated Discharge Date Admission Date: October 20, 2023 Supervising Physician Co-Signing Physician Notes Pnt S&E, agree w/ above. s/p hemorrhoidectomy by Dr. Greenwood, admitted w/ constipation. Has had several large, loose bm's this morning, still abd cramping but feeling better. Pain at anus w/ bm, but no bleeding. adv diet as tolerated, slow down bowel regimen, no indication for abx from surgery perspective. Dr. Greenwood back tomorrow. Subjective I presented to the patient's bedside on 10/22/2023 as a CODE BLUE was called in her roomupon presentation it turned out that the CODE BLUE button was inadvertently activated by patient family member and CODE BLUE was canceled. At the time of my visit the patient was resting comfortably in bed. She notes that she continues to have some cramp-like abdominal pain and has poor appetite. She denies any nausea or vomiting at the present time. She denies any fevers, shakes, or chills. The patient did report to nursing staff that she feels as though she needs to have a bowel movement but has been unable to do so due to pain issues. Nursing staff has reported that patient has had several small bowel movements. The patient's son did express concern that his mother has not been having much in the way of meaningful oral intake and was concerned that she was becoming dehydrated. He also expresses concern that she has not had a substantial bowel movement at this time. No other concerns are voiced at this time. Physical Exam Gastrointestinal (Abdomen): Abdomen is noted to have mild distention. Patient did have some slight tenderness to palpation in the lower abdomen. There is no signs of peritonitis or rebound tenderness or guarding. Results & Data Vital Signs (Past 12 Hours) Vital Signs Temp Pulse Pulse Resp BP BP Pulse Ox 10/21/23 23:15 36.4 C L 94 H 18 99/63 L 93 10/21/23 22:56 88 10/21/23 19:49 36.5 C 82 16 112/68 91 10/21/23 16:15 36.8 C 82 16 113/72 96 10/21/23 15:38 81 O2 Del Method O2 Flow Rate 10/21/23 23:15 Nasal Cannula 2 10/21/23 22:56 10/21/23 19:49 Room Air 10/21/23 16:15 Nasal Cannula 1 10/21/23 15:38 PG Care Time/CCT Total # of Minutes Spent Total Time Spent with Patient: Total time spent is greater than 50% in coordination of care (as documented) at patient's floor/unit and/or counseling patient: Coding Level of Care Code 38379 Post Operative Follow-Up Diagnoses S/P hemorrhoidectomy Z98.890; Z87.19 Acute constipation K59.00
[2023-10-22] MEDS: SODIUM CHLORIDE 0.9% 1,000 ML IV SCH (03:47)
[2023-10-22] MEDS: FLUTICASONE PROPIONATE NA SPR 16 GM BTL PRN (03:52)
[2023-10-22 06:55] LABS: Basophils # (auto) 0.02 K/uL (0.00-0.20); Basophils % (auto) 0.2 %; Eosinophils # (auto) 0.13 K/uL (0.00-0.50); Eosinophils % (auto) 1.2 %; Hematocrit (blood only) 38.3 % (37.0-47.0); Hemoglobin 12.9 g/dl (12.0-16.0); Immature Granulocytes # (auto) 0.03 K/uL (0.01-0.20); Immature Granulocytes % (auto) 0.3 %; Lymphocytes # (auto) 0.79 K/uL (1.20-3.40); Lymphocytes % (auto) 7.3 %; Mean Corpuscular Hemoglobin 29.7 pg (25.0-34.0); Mean Corpuscular Hgb Conc 33.7 g/dL (32.0-36.0); Mean Corpuscular Volume 88.2 fL (80.0-100.0); Mean Platelet Volume 11.1 fL (9.4-12.4); Monocytes # (auto) 1.46 K/uL (0.11-0.59); Monocytes % (auto) 13.5 %; Neutrophils # (auto) 8.38 K/uL (1.40-6.50); Neutrophils % (auto) 77.5 %; Platelet Count 208 K/uL (130-400); RDW Coefficient of Variation 13.2 % (11.5-14.5); RDW Standard Deviation 42.6 fL (36.4-46.3); Red Blood Count 4.34 M/uL (4.20-5.40); White Blood Count 10.81 K/ul (4.8-10.8)
[2023-10-22 07:06] LABS: Calcium 7.7 mg/dl (8.6-10.3); Magnesium 4.4 mg/dl (1.7-2.4); Potassium 4.1 mmol/L (3.5-5.1)
[2023-10-22 07:11] LABS: BUN Creatinine Ratio 24.6 (10-20); Creatinine Clr Calc Pharmacy 67.4 ml/min; Est GFR (African American) 98.7 ml/min; Est GFR (Non-African American) 85.2 ml/min; Phosphorus 3.6 mg/dl (2.5-4.9)
[2023-10-22] MEDS: LACTULOSE SYRUP 20 GM/30 ML UDC PO ONE (08:46)
--- NOTE | 2023-10-22 12:03 | Hospitalist Progress Note ---
Date of Service October 22, 2023 Assessment & Plan (1) Hypoxia: Plan: 71-year-old female with past medical history significant for prediabetes, hypothyroidism, mixed hyperlipidemia, aortic valve insufficiency, GERD, vitamin D deficiency, mild fibromyalgia, myofascial pain dysfunction syndrome, osteopenia, scleritis, persistent insomnia, anxiety, positive antinuclear antibody, recently had hemorrhoid surgery and since then she is constipated. Constipation Recently hemorrhoidectomy Patient recently had hemorrhoidectomy as outpatient 4 days prior to presentation Reports constipation since then; recently took narcotic pain meds as well CT abdomen and pelvis shows large stool burden Discussed with surgery; patient was placed on Fleet enema and bowel regimen; patient having loose bowel movement presently No indication for antibiotics as per surgery Continue lidocaine jelly for pain control Acute hypoxic respiratory failure Likely secondary to bowel distention CTA chest did not show any PE or infiltrate Continue incentive spirometry Wean off oxygen as tolerated Syncope Possible vasovagal Suspect vasovagal symptoms while she was straining on the commode Echocardiogram shows EF of greater than 70% Continue to monitor on telemetry Cardiology consulted; no further cardiac testing Hypermagnesemia mag 5.7 in am labs Improved with IV hydration. Likely secondary to use of milk of magnesia Discussed with nephrology; recommended to continue IV fluids Prediabetes HbA1c of 5.8% On Ozempic Aortic valve insufficiency Echo in September 2023 normal EF, trace to mild aortic regurgitation Follows with cardiology History of fibromyalgia Myofascial pain dysfunction syndrome On duloxetine and gabapentin Hypothyroidism On Synthyroid, continue Anxiety On clonazepam DVT prophylaxis Heparin subcu Disposition Med/telemetry Full code Discussed plan of care with her at bedside. Answer questions/queries Time spent evaluating patient, direct bedside care, chart review, placing orders, interpretation of diagnostic studies, discussion with consultants, patient, and family members, as well as other required patient management activities is 50 minutes Please note the above document was generated using voice recognition software. It may contain grammatical, syntax or spelling errors. Any formal questions or concerns about the content, text or information contained within the body of this dictation should be directly addressed to the provider for clarification Admission and Anticipated Discharge Date Admission Date: October 20, 2023 Subjective Patient reports liquid bowel movement overnight multiple times Abdomen continues to be slightly distended. Low appetite reported Review of Systems Review of Systems: All systems reviewed & are unremarkable except as noted in Subjective Physical Exam Physical Exam: General- Not in acute distress Head- atraumatic Eyes- PERRL. ENT- oropharynx dry Neck- supple, no JVD. Lungs- clear to auscultation no wheezing or crackles Heart- regular rate and rhythm; no murmur, no gallop Abdomen -slightly distended, nontender. Extremities- no pretibial edema, no erythema seen Neuro- alert, oriented x 3; PERRL, EOMI; no facial palsy; no dysarthria; motor 5/5 bilaterally; no pronator drift, coordination of movements normal heel franklin test ok, sensations intact, position sense intact. Skin- warm & dry Results & Data Results & Data Vital Signs (Past 12 Hours) Vital Signs Temp Pulse Pulse Resp BP BP Pulse Ox 10/22/23 11:43 36.6 C 89 16 126/74 93 10/22/23 08:34 36.7 C 87 16 113/70 92 10/22/23 06:03 82 10/22/23 05:03 36.5 C 84 18 120/80 95 O2 Del Method O2 Flow Rate 10/22/23 11:43 Nasal Cannula 2 10/22/23 08:34 Nasal Cannula 2 10/22/23 06:03 10/22/23 05:03 Nasal Cannula 2
[2023-10-22] MEDS ORDERED: cefTRIAXone SODIUM 2,000 MG in DEXTROSE 5 % MINI-B 50 ML IV SCH (12:15)
[2023-10-22] MEDS ORDERED: metroNIDAZOLE 500 MG/100 ML BAG IV SCH (12:15)
[2023-10-23 07:52] LABS: Basophils # (auto) 0.02 K/uL (0.00-0.20); Basophils % (auto) 0.2 %; Eosinophils # (auto) 0.37 K/uL (0.00-0.50); Eosinophils % (auto) 4.1 %; Hematocrit (blood only) 31.7 % (37.0-47.0); Hemoglobin 10.6 g/dl (12.0-16.0); Immature Granulocytes # (auto) 0.03 K/uL (0.01-0.20); Immature Granulocytes % (auto) 0.3 %; Lymphocytes # (auto) 1.22 K/uL (1.20-3.40); Lymphocytes % (auto) 13.7 %; Mean Corpuscular Hemoglobin 29.4 pg (25.0-34.0); Mean Corpuscular Hgb Conc 33.4 g/dL (32.0-36.0); Mean Corpuscular Volume 88.1 fL (80.0-100.0); Mean Platelet Volume 10.5 fL (9.4-12.4); Monocytes # (auto) 1.02 K/uL (0.11-0.59); Monocytes % (auto) 11.4 %; Neutrophils # (auto) 6.27 K/uL (1.40-6.50); Neutrophils % (auto) 70.3 %; Platelet Count 190 K/uL (130-400); RDW Coefficient of Variation 13.1 % (11.5-14.5); RDW Standard Deviation 41.7 fL (36.4-46.3); White Blood Count 8.93 K/ul (4.8-10.8)
[2023-10-23 08:04] LABS: BUN Creatinine Ratio 17.9 (10-20); Calcium 7.9 mg/dl (8.6-10.3); Creatinine Clr Calc Pharmacy 81.5 ml/min; Est GFR (African American) 105.7 ml/min; Est GFR (Non-African American) 91.2 ml/min; Magnesium 2.5 mg/dl (1.7-2.4); Potassium 3.9 mmol/L (3.5-5.1)
[2023-10-23] MEDS ORDERED: MoRPHine SULFATE 2 MG/ML CARP IV PRN (12:42)
--- NOTE | 2023-10-23 12:52 | Surgery Progress Note ---
Date of Service October 23, 2023 Assessment & Plan (1) S/P hemorrhoidectomy: (2) Acute constipation: Plan: resolved now with multiple liquid bowel movements (3) Syncope and collapse: Plan: likely vasovagal Plan POD # 6 s/p hemorrhoidectomy - avss - moderate to severe postoperative pain - now having liquid bowel movements - generalized fatigue/weakness Plan: She needs pain management with narcotics to get pain better controlled in order to get up to ambulate. Ordered PO Percocet, IV MOrphine, IV Toradol as needed. Dr. Greenwood discussed with patient that although narcotics can cause constipation, she has been given extensive laxatives and no longer having constipation and we need to get her pain controlled given the extensive hemor rhoidectomy. Continue diet PT/OT to help with OOB and ambulation once pain better controlled continue medical management Dr. Greenwood has seen and examined patient. Admission and Anticipated Discharge Date Admission Date: October 20, 2023 Subjective having a lot of pain having liquid stool unable to get up out of bed due to pain and entire body feeling so weak tolerated food Physical Exam Constitutional: WD/WN, vitals as above + obese and cooperative; no acute distress, not ill appearing and not combative Respiratory: normal respiratory effort; no respiratory distress, no labored breathing and no retractions Skin: no rashes, warm and dry Psychiatric: Orientation: alert and oriented x 3 Results & Data Vital Signs (Past 12 Hours) Vital Signs Temp Pulse Pulse Resp BP BP Pulse Ox 10/23/23 11:04 36.8 C 84 18 126/73 93 10/23/23 07:42 36.8 C 87 18 110/64 93 10/23/23 06:02 88 10/23/23 04:37 36.8 C 91 H 20 137/75 92 O2 Del Method 10/23/23 11:04 Room Air 10/23/23 07:42 Room Air 10/23/23 06:02 10/23/23 04:37 Room Air Laboratory Results 10/23/23 10/23/23 10/23/23 Range/Units 12:18 08:06 07:08 WBC 8.93 (4.8-10.8) K/ul RBC 3.60 L (4.20-5.40) M/uL Hgb 10.6 L (12.0-16.0) g/dl Hct 31.7 L (37.0-47.0) % MCV 88.1 (80.0-100.0) fL MCH 29.4 (25.0-34.0) pg MCHC 33.4 (32.0-36.0) g/dL RDW Std Deviation 41.7 (36.4-46.3) fL RDW Coeff of Garrick 13.1 (11.5-14.5) % Plt Count 190 (130-400) K/uL MPV 10.5 (9.4-12.4) fL Immature Gran % (Auto) 0.3 % Neut % (Auto) 70.3 % Lymph % (Auto) 13.7 % Heard % (Auto) 11.4 % Eos % (Auto) 4.1 % Baso % (Auto) 0.2 % Neut # (Auto) 6.27 (1.40-6.50) K/uL Lymph # (Auto) 1.22 (1.20-3.40) K/uL Heard # (Auto) 1.02 H (0.11-0.59) K/uL Eos # (Auto) 0.37 (0.00-0.50) K/uL Baso # (Auto) 0.02 (0.00-0.20) K/uL Immature Gran # (Auto) 0.03 (0.01-0.20) K/uL Sodium 138 (136-145) mmol/L Potassium 3.9 (3.5-5.1) mmol/L Chloride 108 H (98-107) mmol/L Carbon Dioxide 26 (21-32) mmol/L Anion Gap 4 (3-11) BUN 10 (6-23) mg/dl Creatinine 0.56 L (0.6-1.2) mg/dl Est Cr Clr Drug Dosing 81.5 ml/min Est GFR ( Amer) 105.7 ml/min Est GFR (Non-Af Amer) 91.2 ml/min BUN/Creatinine Ratio 17.9 (10-20) Glucose 90 (70-99(Fasting)) mg/dl POC Glucose 71 97 (70-99) mg/dl Calcium 7.9 L (8.6-10.3) mg/dl Magnesium 2.5 H (1.7-2.4) mg/dl 10/22/23 10/22/23 Range/Units 20:33 17:14 WBC (4.8-10.8) K/ul RBC (4.20-5.40) M/uL Hgb (12.0-16.0) g/dl Hct (37.0-47.0) % MCV (80.0-100.0) fL MCH (25.0-34.0) pg MCHC (32.0-36.0) g/dL RDW Std Deviation (36.4-46.3) fL RDW Coeff of Garrick (11.5-14.5) % Plt Count (130-400) K/uL MPV (9.4-12.4) fL Immature Gran % (Auto) % Neut % (Auto) % Lymph % (Auto) % Heard % (Auto) % Eos % (Auto) % Baso % (Auto) % Neut # (Auto) (1.40-6.50) K/uL Lymph # (Auto) (1.20-3.40) K/uL Heard # (Auto) (0.11-0.59) K/uL Eos # (Auto) (0.00-0.50) K/uL Baso # (Auto) (0.00-0.20) K/uL Immature Gran # (Auto) (0.01-0.20) K/uL Sodium (136-145) mmol/L Potassium (3.5-5.1) mmol/L Chloride (98-107) mmol/L Carbon Dioxide (21-32) mmol/L Anion Gap (3-11) BUN (6-23) mg/dl Creatinine (0.6-1.2) mg/dl Est Cr Clr Drug Dosing ml/min Est GFR ( Amer) ml/min Est GFR (Non-Af Amer) ml/min BUN/Creatinine Ratio (10-20) Glucose (70-99(Fasting)) mg/dl POC Glucose 85 84 (70-99) mg/dl Calcium (8.6-10.3) mg/dl Magnesium (1.7-2.4) mg/dl
[2023-10-23] MEDS: oxyCODONE/ACETAMINOPHEN 5mg/325mg TAB PO PRN (13:12)
--- NOTE | 2023-10-23 14:46 | Hospitalist Progress Note ---
Date of Service October 23, 2023 Assessment & Plan (1) Hypoxia: Plan: 71-year-old female with past medical history significant for prediabetes, hypothyroidism, mixed hyperlipidemia, aortic valve insufficiency, GERD, vitamin D deficiency, mild fibromyalgia, myofascial pain dysfunction syndrome, osteopenia, scleritis, persistent insomnia, anxiety, positive antinuclear antibody, recently had hemorrhoid surgery and since then she is constipated. Acute constipation Recent hemorrhoidectomy Patient recently had hemorrhoidectomy as outpatient 4 days prior to presentation Reports constipation since then; recently took narcotic pain meds as well CT abdomen and pelvis shows large stool burden Improvement of constipation with bowel regimen. No indication for antibiotics as per surgery Continue lidocaine jelly for pain control PT OT rehab, out of bed Acute hypoxic respiratory failureresolved Likely secondary to bowel distention CTA chest did not show any PE or infiltrate Continue incentive spirometry Wean off oxygen as tolerated Syncope Possible vasovagal Suspect vasovagal symptoms while she was straining on the commode Echocardiogram shows EF of greater than 70% Continue to monitor on telemetry Cardiology consulted; no further cardiac testing Hypermagnesemia mag 5.7 in am labs Improved with IV hydration. Likely secondary to use of milk of magnesia Discussed with nephrology; recommended to continue IV fluids Serum magnesium of 2.5 today. Prediabetes HbA1c of 5.8% On Ozempic Aortic valve insufficiency Echo in September 2023 normal EF, trace to mild aortic regurgitation Follows with cardiology History of fibromyalgia Myofascial pain dysfunction syndrome On duloxetine and gabapentin Hypothyroidism On Synthyroid, continue Anxiety On clonazepam DVT prophylaxis Heparin subcu Disposition Med/telemetry Full code Please note the above document was generated using voice recognition software. It may contain grammatical, syntax or spelling errors. Any formal questions or concerns about the content, text or information contained within the body of this dictation should be directly addressed to the provider for clarification Admission and Anticipated Discharge Date Admission Date: October 20, 2023 Subjective Patient reports multiple bowel movements overnight Abdomen is less distended No significant events overnight Review of Systems Review of Systems: All systems reviewed & are unremarkable except as noted in Subjective Physical Exam Physical Exam: General- Not in acute distress Head- atraumatic Eyes- PERRL. ENT- oropharynx dry Neck- supple, no JVD. Lungs- clear to auscultation no wheezing or crackles Heart- regular rate and rhythm; no murmur, no gallop Abdomen -soft, nontender. Extremities- no pretibial edema, no erythema seen Neuro- alert, oriented x 3; PERRL, EOMI; no facial palsy; no dysarthria; motor 5/5 bilaterally; no pronator drift, grossly intact Skin- warm & dry Results & Data Results & Data Vital Signs (Past 12 Hours) Vital Signs Temp Pulse Pulse Resp BP BP Pulse Ox 10/23/23 11:04 36.8 C 84 18 126/73 93 10/23/23 07:42 36.8 C 87 18 110/64 93 10/23/23 06:02 88 10/23/23 04:37 36.8 C 91 H 20 137/75 92 O2 Del Method 10/23/23 11:04 Room Air 10/23/23 07:42 Room Air 10/23/23 06:02 10/23/23 04:37 Room Air
[2023-10-24 07:57] LABS: Basophils # (auto) 0.02 K/uL (0.00-0.20); Basophils % (auto) 0.3 %; Eosinophils # (auto) 0.33 K/uL (0.00-0.50); Eosinophils % (auto) 4.3 %; Hematocrit (blood only) 32.6 % (37.0-47.0); Hemoglobin 10.5 g/dl (12.0-16.0); Immature Granulocytes # (auto) 0.03 K/uL (0.01-0.20); Immature Granulocytes % (auto) 0.4 %; Lymphocytes # (auto) 1.31 K/uL (1.20-3.40); Lymphocytes % (auto) 17.1 %; Mean Corpuscular Hemoglobin 29.1 pg (25.0-34.0); Mean Corpuscular Hgb Conc 32.2 g/dL (32.0-36.0); Mean Corpuscular Volume 90.3 fL (80.0-100.0); Mean Platelet Volume 10.4 fL (9.4-12.4); Monocytes # (auto) 1.03 K/uL (0.11-0.59); Monocytes % (auto) 13.5 %; Neutrophils # (auto) 4.92 K/uL (1.40-6.50); Neutrophils % (auto) 64.4 %; Platelet Count 191 K/uL (130-400); RDW Coefficient of Variation 13.3 % (11.5-14.5); RDW Standard Deviation 44.3 fL (36.4-46.3); Red Blood Count 3.61 M/uL (4.20-5.40); White Blood Count 7.64 K/ul (4.8-10.8)
[2023-10-24] MEDS: MoRPHine SULFATE 4 MG/ML 1 ML CARP\\VIAL IV PRN (08:07)
[2023-10-24] MEDS: PANTOprazole 40 MG TAB PO SCH (08:11)
[2023-10-24 08:15] LABS: BUN Creatinine Ratio 18.6 (10-20); Calcium 8.5 mg/dl (8.6-10.3); Creatinine Clr Calc Pharmacy 70.7 ml/min; Est GFR (African American) 103.9 ml/min; Est GFR (Non-African American) 89.7 ml/min; Magnesium 1.9 mg/dl (1.7-2.4); Potassium 3.9 mmol/L (3.5-5.1)
[2023-10-24] MEDS: DOCUSATE SODIUM/SENNA 50/8.6MG TAB PO SCH (09:16)
[2023-10-24] MEDS: oxyCODONE/ACETAMINOPHEN 5mg/325mg TAB PO PRN (09:16)
[2023-10-24] MEDS: KETOROLAC 30 MG/ML VIAL IV PRN (10:58)
--- NOTE | 2023-10-24 12:09 | Surgery Progress Note ---
Date of Service October 24, 2023 Assessment & Plan (1) S/P hemorrhoidectomy: (2) Acute constipation: Plan: resolved now with decreasing BMs (3) Syncope and collapse: Plan: likely vasovagal Plan POD # 7 s/p hemorrhoidectomy - avss - moderate to severe postoperative pain - now having liquid bowel movements - generalized fatigue/weakness Plan: She needs to ambulate; will get IS and flutter valve as well continue pain control PT/OT to help with OOB and ambulation once pain better controlled continue medical management Admission and Anticipated Discharge Date Admission Date: October 20, 2023 Subjective Feeling better this morning. Less bowel movements. No nausea or vomiting. Pain under better control. Physical Exam Physical Exam: NAD A&Ox3 AFVSS Results & Data Vital Signs (Past 12 Hours) Vital Signs Temp Pulse Resp BP BP Pulse Ox O2 Del Method 10/24/23 08:37 36.6 C 85 18 134/82 93 Room Air 10/24/23 05:30 36.7 C 82 20 119/70 93 Room Air
--- NOTE | 2023-10-24 12:20 | XRay Report ---
KUB CLINICAL HISTORY: Follow up on constipation COMPARISON STUDY: KUB and CT of the abdomen and pelvis October 20, 2023. FINDINGS: Postoperative findings within the spine are incidentally noted. A moderate to large amount of stool within the colon and rectum is noted. This has mildly decreased since prior exam. Multiple l oops of mildly dilated small bowel are noted. Small bowel dilatation has developed since prior exam. IMPRESSION: 1. Moderate to large amount of stool within the colon and rectum, slightly decreased since prior KUB. 2. Interval development of mild small bowel dilatation. This may reflect an ileus. However, a partial small bowel obstruction could appear similar. ACT 112: Negative or not required by law. Electronically signed by: Drew Collazo M.D. 10/24/2023 12:17 PM
--- NOTE | 2023-10-24 16:19 | Hospitalist Progress Note ---
Date of Service October 24, 2023 Assessment & Plan (1) Hypoxia: Plan: 71-year-old female with past medical history significant for prediabetes, hypothyroidism, mixed hyperlipidemia, aortic valve insufficiency, GERD, vitamin D deficiency, mild fibromyalgia, myofascial pain dysfunction syndrome, osteopenia, scleritis, persistent insomnia, anxiety, positive antinuclear antibody, recently had hemorrhoid surgery and since then she is constipated. Acute constipation Recent hemorrhoidectomy Patient recently had hemorrhoidectomy as outpatient 4 days prior to presentation Reports constipation since then; recently took narcotic pain meds as well CT abdomen and pelvis shows large stool burden Improvement of constipation with bowel regimen. KUB still shows large stool burden. Lactulose added along with MiraLAX, docusate/senna No indication for antibiotics as per surgery Continue lidocaine jelly for pain control Surgery added narcotics for pain control. PT OT rehab, out of bed Acute hypoxic respiratory failureresolved On presentation, patient was using accessory muscles for shortness of breath and her oxygen level was less than 90% Likely secondary to bowel distention CTA chest did not show any PE or infiltrate Continue incentive spirometry Wean off oxygen as tolerated Syncope Possible vasovagal Suspect vasovagal symptoms while she was straining on the commode Echocardiogram shows EF of greater than 70% Continue to monitor on telemetry Cardiology consulted; no further cardiac testing Hypermagnesemia mag 5.7 in am labs Improved with IV hydration. Likely secondary to use of milk of magnesia Discussed with nephrology; recommended to continue IV fluids Serum magnesium of 1.9 today Prediabetes HbA1c of 5.8% On Ozempic, need to be discontinued due to constipation. Aortic valve insufficiency Echo in September 2023 normal EF, trace to mild aortic regurgitation Follows with cardiology History of fibromyalgia Myofascial pain dysfunction syndrome On duloxetine and gabapentin Hypothyroidism On Synthyroid, continue Anxiety On clonazepam DVT prophylaxis Heparin subcu Disposition Med/telemetry Full code Please note the above document was generated using voice recognition software. It may contain grammatical, syntax or spelling errors. Any formal questions or concerns about the content, text or information contained within the body of this dictation should be directly addressed to the provider for clarification Admission and Anticipated Discharge Date Admission Date: October 20, 2023 Subjective Patient seen and examined at bedside. Reports that the pain has improved Abdominal distention has also improved. Review of Systems Review of Systems: All systems reviewed & are unremarkable except as noted in Subjective Physical Exam Physical Exam: General- Not in acute distress Head- atraumatic Eyes- PERRL. ENT- oropharynx dry Neck- supple, no JVD. Lungs- clear to auscultation no wheezing or crackles Heart- regular rate and rhythm; no murmur, no gallop Abdomen -soft, nontender. Extremities- no pretibial edema, no erythema seen Neuro- alert, oriented x 3; PERRL, EOMI; no facial palsy; no dysarthria; motor 5/5 bilaterally; no pronator drift, grossly intact Skin- warm & dry Results & Data Results & Data Vital Signs (Past 12 Hours) Vital Signs Temp Pulse Resp BP BP Pulse Ox O2 Del Method 10/24/23 15:59 36.9 C 94 H 18 127/62 94 Room Air 10/24/23 08:37 36.6 C 85 18 134/82 93 Room Air 10/24/23 05:30 36.7 C 82 20 119/70 93 Room Air
[2023-10-24] MEDS: LACTULOSE SYRUP 20 GM/30 ML UDC PO SCH (18:37)
[2023-10-25 08:13] LABS: Basophils # (auto) 0.03 K/uL (0.00-0.20); Basophils % (auto) 0.4 %; Eosinophils # (auto) 0.35 K/uL (0.00-0.50); Eosinophils % (auto) 4.7 %; Hematocrit (blood only) 34.7 % (37.0-47.0); Hemoglobin 11.2 g/dl (12.0-16.0); Immature Granulocytes # (auto) 0.04 K/uL (0.01-0.20); Immature Granulocytes % (auto) 0.5 %; Lymphocytes # (auto) 1.46 K/uL (1.20-3.40); Lymphocytes % (auto) 19.7 %; Mean Corpuscular Hemoglobin 29.2 pg (25.0-34.0); Mean Corpuscular Hgb Conc 32.3 g/dL (32.0-36.0); Mean Corpuscular Volume 90.4 fL (80.0-100.0); Monocytes # (auto) 1.01 K/uL (0.11-0.59); Monocytes % (auto) 13.6 %; Neutrophils # (auto) 4.51 K/uL (1.40-6.50); Neutrophils % (auto) 61.1 %; Platelet Count 201 K/uL (130-400); RDW Coefficient of Variation 13.2 % (11.5-14.5); RDW Standard Deviation 43.6 fL (36.4-46.3); Red Blood Count 3.84 M/uL (4.20-5.40)
[2023-10-25 08:47] LABS: BUN Creatinine Ratio 15.3 (10-20); Calcium 8.9 mg/dl (8.6-10.3); Creatinine Clr Calc Pharmacy 57.3 ml/min; Est GFR (African American) 94.9 ml/min; Est GFR (Non-African American) 81.9 ml/min; Magnesium 1.8 mg/dl (1.7-2.4); Potassium 3.9 mmol/L (3.5-5.1)
--- NOTE | 2023-10-25 09:28 | Surgery Progress Note ---
Date of Service October 25, 2023 Assessment & Plan (1) S/P hemorrhoidectomy: Plan POD # 8 s/p hemorrhoidectomy - avss - moderate to severe postoperative pain - improved - now having liquid bowel movements - less today - generalized fatigue/weakness Plan: switch to PO pain control continue ambulation november d/c to home from surgical standpoint continue medical management Admission and Anticipated Discharge Date Admission Date: October 20, 2023 Subjective Patient seen and examined at bedside. Reports that the pain has improved Abdominal distention has also improved. Physical Exam Physical Exam: NAD A&Ox3 AFVSS Results & Data Vital Signs (Past 12 Hours) Vital Signs Temp Pulse Resp BP Pulse Ox O2 Del Method 10/25/23 07:59 36.7 C 93 H 18 129/67 94 Room Air
--- NOTE | 2023-10-25 17:29 | Hospitalist Progress Note ---
Date of Service October 25, 2023 Assessment & Plan (1) Hypoxia: Plan: 71-year-old female with past medical history significant for prediabetes, hypothyroidism, mixed hyperlipidemia, aortic valve insufficiency, GERD, vitamin D deficiency, mild fibromyalgia, myofascial pain dysfunction syndrome, osteopenia, scleritis, persistent insomnia, anxiety, positive antinuclear antibody, recently had hemorrhoid surgery and since then she is constipated. Acute constipation Recent hemorrhoidectomy Patient recently had hemorrhoidectomy as outpatient 4 days prior to presentation Reports constipation since then; recently took narcotic pain meds as well CT abdomen and pelvis shows large stool burden Improvement of constipation with bowel regimen. KUB still shows large stool burden. Continue with lactulose, MiraLAX, docusate/senna No indication for antibiotics as per surgery Continue lidocaine jelly for pain control Will DC IV opiates medication, transition to p.o. meds in preparation for discharge. Patient does not feel comfortable going home today. PT OT rehab, out of bed Acute hypoxic respiratory failureresolved On presentation, patient was using accessory muscles for shortness of breath and her oxygen level was less than 90% Likely secondary to bowel distention CTA chest did not show any PE or infiltrate Continue incentive spirometry Weaned off of oxygen. Syncope Possible vasovagal Suspect vasovagal symptoms while she was straining on the commode Echocardiogram shows EF of greater than 70% Continue to monitor on telemetry Cardiology consulted; no further cardiac testing Hypermagnesemia mag 5.7 in am labs Improved with IV hydration. Likely secondary to use of milk of magnesia Now better. Prediabetes HbA1c of 5.8% On Ozempic at home, ? discontinue until further discussion w/ OP provider given constipation Aortic valve insufficiency Echo in September 2023 normal EF, trace to mild aortic regurgitation Follows with cardiology History of fibromyalgia Myofascial pain dysfunction syndrome On duloxetine and gabapentin Hypothyroidism On Synthyroid, continue Anxiety On clonazepam DVT prophylaxis Heparin subcu Disposition Med/telemetry Full code Please note the above document was generated using voice recognition software. It may contain grammatical, syntax or spelling errors. Any formal questions or concerns about the content, text or information contained within the body of this dictation should be directly addressed to the provider for clarification Admission and Anticipated Discharge Date Admission Date: October 20, 2023 Subjective Patient seen and examined at bedside. Reports that the pain has improved Abdominal distention has also improved. Had good BM yesterday per pt, some BM today but she feels it was not as good as yesterday. Physical Exam Physical Exam: General- Not in acute distress Head- atraumatic Eyes- PERRL. ENT- oropharynx dry Neck- supple, no JVD. Lungs- clear to auscultation no wheezing or crackles Heart- regular rate and rhythm; no murmur, no gallop Abdomen -soft, nontender. Extremities- no pretibial edema, no erythema seen Neuro- alert, oriented x 3; PERRL, EOMI; no facial palsy; no dysarthria; motor 5/5 bilaterally; no pronator drift, grossly intact Skin- warm & dry Results & Data Results & Data Vital Signs (Past 12 Hours) Vital Signs Temp Pulse Resp BP BP Pulse Ox O2 Del Method 10/25/23 15:11 36.7 C 94 H 18 132/72 93 Room Air 10/25/23 10:49 36.8 C 100 H 18 122/73 99 Room Air 10/25/23 07:59 36.7 C 93 H 18 129/67 94 Room Air
[2023-10-26 06:38] LABS: Calcium 9.2 mg/dl (8.6-10.3); Magnesium 1.8 mg/dl (1.7-2.4)
[2023-10-26 06:44] LABS: Creatinine Clr Calc Pharmacy 58.7 ml/min; Est GFR (African American) 98.2 ml/min; Est GFR (Non-African American) 84.8 ml/min; Hematocrit (blood only) 33.6 % (37.0-47.0); Mean Corpuscular Hemoglobin 29.3 pg (25.0-34.0); Mean Corpuscular Hgb Conc 32.7 g/dL (32.0-36.0); Mean Corpuscular Volume 89.6 fL (80.0-100.0); Mean Platelet Volume 10.5 fL (9.4-12.4); Phosphorus 4.4 mg/dl (2.5-4.9); Platelet Count 210 K/uL (130-400); RDW Coefficient of Variation 13.3 % (11.5-14.5); RDW Standard Deviation 43.7 fL (36.4-46.3); Red Blood Count 3.75 M/uL (4.20-5.40); White Blood Count 6.55 K/ul (4.8-10.8)
--- NOTE | 2023-10-26 12:51 | Discharge Summary ---
Date of Service October 26, 2023 Admission HPI Per Admitting Provider 71-year-old female with past medical history significant for prediabetes, hypothyroidism, mixed hyperlipidemia, aortic valve insufficiency, GERD, vitamin D deficiency, mild fibromyalgia, myofascial pain dysfunction syndrome, osteopenia, scleritis, persistent insomnia, anxiety, positive antinuclear antibody, recently had hemorrhoid surgery and since then she is constipated. Patient states since surgery she did not moved her bowels. And having some nausea. Not able to eat much. Feeling weak and tired and exhausted. At home she had a enema without much help.In the ER stool softeners wee given but patient seems vomited. ER tried to discharge patient with bowel regimen and pain regimen but patient became hypoxic requiring oxygen. Patient states she is feeling short of breath. Denies any chest pain. Denies any headache. No fevers. No cough. Having dry mouth. Micturating okay. Somewhat wobbly while ambulating. Later patient was in the bathroom on the commode and when she was trying to get up from the commode with assistance she suddenly passed out and then again trying to sit on the commode she passed out again and the nursing staff lowered her into the floor and seems she passed out for a minute and came around. Her blood pressure was soft. After that she was alert and oriented and seemed comfortable. Denied any chest pain or shortness of breath or headache after the episode. Past medical history. As mentioned above Past surgical history. . Colonoscopy. Lumbar spinal fusion. Hemorrhoidectomy. Social history. Smoked 1.5 packs a day for 43 years. Quit in 2004. Alcohol social drinking. No drug use. Family history. Brother had prostate cancer. Depression. Maternal aunt had breast cancer. Admission Exam Per Admitting Provider General- Not in acute distress Head- atraumatic Eyes- PERRL. ENT- oropharynx dry Neck- supple, no JVD. Lungs- clear to auscultation no wheezing or crackles Heart- regular rate and rhythm; no murmur, no gallop Abdomen- normal bowel sounds, soft, mild diffuse discomfort, mild distension Extremities- no pretibial edema, no erythema seen Neuro- alert, oriented x 3; PERRL, EOMI; no facial palsy; no dysarthria; motor 5/5 bilaterally; no pronator drift, coordination of movements normal heel franklin test ok, sensations intact, position sense intact. Skin- warm & dry Principal Diagnosis Acute constipation ISO recent hemorrhoidectomy Acute hypoxic respiratory failure, resolved Possible vasovagal syncope Discharge Exam General- Not in acute distress Head- atraumatic Eyes- PERRL. ENT- oropharynx dry Neck- supple, no JVD. Lungs- clear to auscultation no wheezing or crackles Heart- regular rate and rhythm; no murmur, no gallop Abdomen -soft, nontender. Extremities- no pretibial edema, no erythema seen Neuro- alert, oriented x 3; PERRL, EOMI; no facial palsy; no dysarthria; motor 5/5 bilaterally; no pronator drift, grossly intact Skin- warm & dry Discharge Data Allergies Allergy/AdvReac Type Severity Reaction Status Date / Time lactose AdvReac Unknown Gastrointestinal Verified 10/23/23 18:11 Upset shellfish derived AdvReac Unknown Unknown Verified 10/21/23 00:21 Consultations 10/20/23 21:43 ED Decision to Admit Stat 10/21/23 08:00 Consult Cardiology Routine Consult General Surgery Routine Ordered Studies 10/20/23 16:46 CT abd pelvis wo con Stat 10/20/23 23:24 CT angio chest PE protocol Stat 10/20/23 23:52 CT head/brain wo con Stat Hospital Course (1) Hypoxia: 71-year-old female with past medical history significant for prediabetes, hypothyroidism, mixed hyperlipidemia, aortic valve insufficiency, GERD, vitamin D deficiency, mild fibromyalgia, myofascial pain dysfunction syndrome, osteopenia, scleritis, persistent insomnia, anxiety, positive antinuclear antibody, recently had hemorrhoid surgery and since then she is constipated. She was managed for the following: Acute constipation Recent hemorrhoidectomy Patient recently had hemorrhoidectomy as outpatient 4 days prior to presentation Reports constipation since then; recently took narcotic pain meds as well CT abdomen and pelvis shows large stool burden Improvement of constipation with bowel regimen. KUB still shows large stool burden. Continue with lactulose, MiraLAX, docusate/senna No indication for antibiotics as per surgery Continue lidocaine jelly for pain control Surgery evaluated, okay to discharge from the point of view. Patient would like to go home today. Patient advised to continue to ambulate as possible, maintain hydration, take bowel regimen with a goal of 1-2 bowel movements a day/if achieved the goal for the day, then patient advised not to take any further bowel regimen for the day and start all over again next day. Acute hypoxic respiratory failureresolved On presentation, patient was using accessory muscles for shortness of breath and her oxygen level was less than 90% Likely secondary to bowel distention CTA chest did not show any PE or infiltrate Continue incentive spirometry Weaned off of oxygen. Syncope Possible vasovagal Suspect vasovagal symptoms while she was straining on the commode Echocardiogram shows EF of greater than 70% Continue to monitor on telemetry Cardiology consulted; no further cardiac testing Hypermagnesemia mag 5.7 in am labs Improved with IV hydration. Likely secondary to use of milk of magnesia Now better. Prediabetes HbA1c of 5.8% On Ozempic at home, ? discontinue until further discussion w/ OP provider given constipation Aortic valve insufficiency Echo in September 2023 normal EF, trace to mild aortic regurgitation Follows with cardiology History of fibromyalgia Myofascial pain dysfunction syndrome On duloxetine and gabapentin Hypothyroidism On Synthyroid, continue Anxiety On clonazepam DVT prophylaxis Heparin subcu Disposition Med/telemetry Full code Patient is being discharged to home with following instruction at the point of discharge: Follow-up with your primary care physician within a week time and likely you will need labs CBC/CMP/magnesium/phosphorus. For your pain management in the setting of hemorrhoidectomy, use lidocaine jelly up to 4 times a day locally. Minimize the use of opiate pain medication as much as possible. For your constipation, continue to ambulate as much as possible, adequately hydrate with about 2 to 3 L of fluid a day. For your constipation, you will be discharged on as needed bowel regimen. As discussed at the bedside, utilize bowel regimen with a goal of 1-2 bowel movements a day. If you have already moved bowel for the day, you can hold all the remaining bowel regimen for the day and start all over again tomorrow. Ozempic on hold at discharge due to side effect of constipation. Hold the drug until further discussion with your provider as an outpatient. Take your medications as prescribed. Please make sure that you are able to get your medications today by calling your pharmacy before you leave the hospital so that your treatment continuity is not broken. Please note the above document was generated using voice recognition software. It may contain grammatical, syntax or spelling errors. Any formal questions or c oncerns about the content, text or information contained within the body of this dictation should be directly addressed to the provider for clarification Home Health Attestation I certify that this patient is under my care and that I, or a physicians election assistant working with me, had a face to-face encounter that meets the home health [id number] encounter requirements with this patient. The encounter with the patient was in whole, or in part, for the following medical condition, which is the primary reason for home health care (list medical condition): I certify that, based on my findings, the following services are medically necessary home health services: My clinical findings support the need for the above services because: Further, I certify that my clinical findings support that this patient is homebound (i.e. absences from home require considerable and taxing effort and are for medical reasons or yazidi services or infrequently or of short duration when for other reasons) because: Certification for Home Health Services: Based on the above findings, I certify that this patient is confined to the home and needs intermittent halfway care, physical therapy and/or speech therapy or continues to need occupational therapy. The patient is under my care, and I have initiated the establishment of the plan of care. This patient will be followed by a physician who will periodically review the plan of care. Total Time Total Time Spent Total Time Spent (In Minutes): 45 Discharge Plan Discharge Items Patient Disposition: Home - Self-Care Reason For Visit: CONSTIPATION, HYPOXIA Discharge Diagnosis: Acute constipation ISO recent hemorrhoidectomy Acute hypoxic respiratory failure, resolved Possible vasovagal syncope Activity: Resume your previous activity Non-emergency contact: Primary Care Provider Call non-emergency contact if: you have any medication questions and your symptoms worsen Follow-up/Referrals: Chandrakant Greenwood MD [Physician] - (Date & Time 11/01/2023 1:00 PM Provider Chandrakant Greenwood MD Department General Surgery, [facility] ) Henry Tejada MD [Primary Care Provider] - (Date & Time 11/02/2023 11:20 AM Provider Henry Tejada MD Department General Internal Medicine [facility] ) Diet: Carb Consistent or DM2 Addtl Attending Provider Instructions: Follow-up with your primary care physician within a week time and likely you will need labs CBC/CMP/magnesium/phosphorus. For your pain management in the setting of hemorrhoidectomy, use lidocaine jelly up to 4 times a day locally. Minimize the use of opiate pain medication as much as possible. For your constipation, continue to ambulate as much as possible, adequately hydrate with about 2 to 3 L of fluid a day. For your constipation, you will be discharged on as needed bowel regimen. As discussed at the bedside, utilize bowel regimen with a goal of 1-2 bowel movements a day. If you have already moved bowel for the day, you can hold all the remaining bowel regimen for the day and start all over again tomorrow. Ozempic on hold at discharge due to side effect of constipation. Hold the drug until further discussion with your provider as an outpatient. Take your medications as prescribed. Please make sure that you are able to get your medications today by calling your pharmacy before you leave the hospital so that your treatment continuity is not broken. Pending Studies at Discharge: No Stand-Alone Forms: My [facility] [employer], Smoking Cessation Medications and DC Order Prescriptions: New lactulose 20 gram/30 mL Solution 20 g PO TID PRN (Reason: laxative effect) Qty: 1200 0RF lidocaine HCl 2 % Jelly In Applicator 2 ml EXT QID Qty: 250 0RF Rx Instructions: Apply to tara-rectal area four times a day. pantoprazole 40 mg Tablet,Delayed Release (Dr/Ec) 40 mg PO QAM Qty: 30 0RF polyethylene glycol 3350 [Miralax] 17 gram Powder In Packet 17 g PO BID PRN (Reason: constipation) Qty: 30 0RF sennosides-docusate sodium [Senokot-S] 8.6-50 mg Tablet 2 tab PO QAM PRN (Reason: constipation) Qty: 30 0RF Continued atorvastatin 20 mg tablet 20 mg PO QPM meloxicam 15 mg tablet 15 mg PO QAM clonazepam 1 mg tablet 1 mg PO HS PRN (Reason: Sleep) cyanocobalamin (vitamin B-12) [Vitamin B-12] 1,000 mcg Tablet 1,000 mcg PO DAILY levothyroxine 25 mcg tablet 25 mcg PO QAM oxycodone-acetaminophen [Percocet] 5-325 mg Tablet 1 tab PO Q4H PRN (Reason: .SEVERE PAIN) gabapentin 300 mg capsule 600 mg PO QPM gabapentin 300 mg capsule 300 mg PO QAM fluticasone propionate [Flonase Allergy Relief] 50 mcg/actuation [place],Suspension 2 spray INTRANASAL DAILY PRN (Reason: .RHINITIS) Rx Instructions: administer into each nostril loratadine 10 mg Tablet 10 mg PO QAM duloxetine 60 mg capsule,delayed release(DR/EC) 60 mg PO DAILY cholecalciferol (vitamin D3) [Vitamin D3] 50 mcg (2,000 unit) Tablet 50 mcg PO DAILY Held Ozempic 2 mg/dose (8 mg/3 mL) pen injector 2 mg SUBCUT WE Hold Instructions: Resume on 11/02/23. Hold for side effect constipation until further discussion w/ provider Discharge Orders: Discharge Order (Routine); Ordered 10/26/23 Ordered By: Miryam Lopez Admission Data Admit Date/Time: 10/20/23 23:24 Attending Provider: Miryam Lopez Admit Provider: Aki Roche Primary Care Provider: Henry Tejada Other Providers: Aki Roche; Garrett Moore; Chandrakant Greenwood
--- NOTE | 2023-10-26 14:16 | Surgery Progress Note ---
Date of Service October 26, 2023 Assessment & Plan (1) S/P hemorrhoidectomy: Plan POD # 9 s/p hemorrhoidectomy - avss - moderate to severe postoperative pain - improved - now having liquid bowel movements - less today - generalized fatigue/weakness Plan: Continue PO pain control continue ambulation may d/c to home from surgical standpoint continue medical management Admission and Anticipated Discharge Date Admission Date: October 20, 2023 Subjective seen walking in the knight today. Having bowel movements. Still complaining of pain. Feeling better. Physical Exam Physical Exam: NAD A&Ox3 AFVSS Results & Data Vital Signs (Past 12 Hours) Vital Signs Temp Pulse Resp BP BP Pulse Ox O2 Del Method 10/26/23 13:36 36.7 C 76 18 129/73 143/81 H 91 10/26/23 07:39 36.7 C 76 18 143/81 H 91 Room Air
== END 2023-10-26 15:04 | disposition home or self-care (01) | DRG 391 ==
LOC: ED 15:23 → EDINP 23:24 → SUATTDRO 23:24 → 2W 10-21 01:15
DX: K21.9 Gastro-esophageal reflux disease without esophagitis; E83.51 Hypocalcemia; I35.1 Nonrheumatic aortic (valve) insufficiency; J96.01 Acute respiratory failure with hypoxia; Z98.890 Other specified postprocedural states; E03.9 Hypothyroidism, unspecified; Z79.890 Hormone replacement therapy; Z98.1 Arthrodesis status; F41.9 Anxiety disorder, unspecified; R55 Syncope and collapse; E55.9 Vitamin D deficiency, unspecified; E87.1 Hypo-osmolality and hyponatremia; M79.18 Myalgia, other site; Z87.891 Personal history of nicotine dependence; Y92.019 Unspecified place in single-family (private) house as the place of occurrence of the external cause; Z79.85 Long-term (current) use of injectable non-insulin antidiabetic drugs; R73.03 Prediabetes; T47.1X5A Adverse effect of other antacids and anti-gastric-secretion drugs, initial encounter; J98.11 Atelectasis; E78.2 Mixed hyperlipidemia; E83.41 Hypermagnesemia; K59.09 Other constipation